=== PATIENT | female | born 1945 | race Caucasian/White ===

== ENCOUNTER 2019-07-17 09:13 | Outpatient (CLI) | payer MEDICARE, SELFPAY ==
--- NOTE | ~2019-07-17 | US_ITS ---
US breast RT limited 07/17/2019 10:14 Indication: Follow-up right breast mass Procedure: High-resolution ultrasound of the right breast Comparison: 01/10/2019 Findings: At 11:00, 5 cm from the nipple, there is a cluster of microcysts measuring 7 mm in aggregat e. There is also a 5 mm cyst at 11:00, 2 cm from the nipple. No suspicious masses to suggest malignan cy. Impression: 1: No sonographic evidence for malignancy. Routine yearly screening mammogram and regular clinical breast examination are recommended. BI-RADS CATEGORY 2 - BENIGN FINDINGS Reviewed, dictated and finalized at location A. Impression: 1: No sonographic evidence for malignancy. Routine yearly screening mammogram and regular clinical breast examination are recommended. BI-RADS CATEGORY 2 - BENIGN FINDINGS
== END 2019-07-17 09:14 ==
PROVIDERS: PCP Family Medicine; Visit Provider Family Medicine
DX: R92.8 Other abnormal and inconclusive findings on diagnostic imaging of breast (principal)
CPT/HCPCS: 76642

== ENCOUNTER → 2020-04-27 07:17 | Outpatient (CLI) | payer MEDICARE, SELFPAY ==
--- NOTE | ~2020-04-27 | MM_ITS ---
EXAMINATION: MM screening castro BI w heather HISTORY: Screening TECHNIQUE: Craniocaudal and mediolateral oblique 3-D tomosynthesis images were obtained and synthetic 2-D images were generated. CAD analysis was submitted and interpreted. COMPARISON: Comparison to multiple prior studies sequentially, with oldest reviewed study dated 09/21. BREAST PARENCHYMAL COMPOSITION: There are scattered areas of fibroglandular density. FINDINGS: Stable benign-appearing bilateral breast masses. There is no evidence of suspicious mass, c alcification, or architectural distortion to suggest malignancy in either breast. There has been no s uspicious interval change. IMPRESSION: 1. No mammographic evidence of malignancy. 2. Recommend routine screening mammography in one year. BI-RADS Category 2: Benign finding(s). Reviewed, dictated and finalized at location A. ONENT ENGINEER
== END ==
PROVIDERS: PCP Family Medicine; Visit Provider Family Medicine
DX: Z12.31 Encounter for screening mammogram for malignant neoplasm of breast (principal)
CPT/HCPCS: 77063; 77067

== ENCOUNTER → 2022-06-08 10:30 | Outpatient (CLI) | payer MEDICARE, SELFPAY ==
--- NOTE | ~2022-06-08 | MM_ITS ---
EXAMINATION: MM screening castro BI w heather HISTORY: Screening mammogram TECHNIQUE: Craniocaudal and mediolateral oblique 3-D tomosynthesis images were obtained and synthetic 2-D images were generated. CAD analysis was submitted and interpreted. COMPARISON: 04/27/2020 bilateral screening mammogram 07/17/2019 limited right breast ultrasound 01/10/2019 bilateral diagnostic mammography and Limited bilateral breast ultrasound examination 01/07/2019 bilateral screening mammogram examination BREAST PARENCHYMAL COMPOSITION: There are scattered areas of fibroglandular density. FINDINGS: There is no evidence of suspicious mass, calcification, or architectural distortion to sugg est malignancy in either breast. There has been no suspicious interval change. IMPRESSION: 1. No mammographic evidence of malignancy. 2. Recommend routine screening mammography in one year. BI-RADS Category 1: Negative Reviewed, dictated and finalized at location A. ECT MANAGEMENT INTERN
== END ==
DX: Z12.31 Encounter for screening mammogram for malignant neoplasm of breast (principal)
CPT/HCPCS: 77063; 77067

== ENCOUNTER 2024-12-04 09:36 | Emergency (ER) | payer MEDICARE, SELFPAY ==
[2024-12-04 09:43] VITALS: BP 144/100; PULSE 96; RESP 18; TEMP 36.8; O2SAT 96
--- OUTSIDE RECORDS SUMMARY | 2024-12-04 10:01 | XMS_ITS | Encounter Summary ---
Author Organization [facility] Healthcare Address [address] [place] [id number] Care Team Providers Care Rug Drying Machine Operator Name Role Phone Francisco Javier Scott DO Primary Care Provider +1- [phone] Encounter Details Date Type Department Care Team (Late st Contact Info) Description 11/29/2024 Telephone [facility] Medical Group Cardiology [address] [place] [address] Rick Vazquez MD [address] [facility] [address] [facility] [address], [address] [place] [address] Social History Tobacco Use Types Packs/Day Years Used Date Smoking Tobacco: Never Smokeless Tobacco: Never [facility] Utilities Answer Date Recorded In the past 12 months has [employer], gas, oil, or water [employer] threatened to shut off services in your home? No 11/12/2024 Social Connection and Isolat ion Panel [NHANES] Answer Date Recorded In a typical week, how many times do you talk on the phone with family, friends, or neighbors? More than three times a week 11/12/2024 How often do you get togethe r with friends or relatives? More than three times a week 11/12/2024 How often do you attend [facility] or catholic services? Never 11/12/2024 Do you belong to any clubs o r organizations such as druze groups, unions, fraternal or athletic groups, or school groups? No 11/12/2024 How often do you attend meet ings of the clubs or organizations you belong to? Never 11/12/2024 Are you , , di vorced, , never , or living with a partner? 11/12/2024 Overall Financial Resource Strain (CARDIA) Answe r Date Recorded How hard is it for you to pa y for the very basics like food, housing, medical care, and heating? Not very hard 11/12/2024 Hunger Vital Sign Answer Date Recorded Within the past 12 months, y ou worried that your food would run out before you got the money to buy more. Never true 11/13/19 25 Within the past 12 months, t he food you bought just didn't last and you didn't have money to get more. Never true 11/12/2024 PRAPARE - Transportation Answer Date Re corded In the past 12 months, has l ack of transportation kept you from medical appointments or from getting medications? No 10/29 In the past 12 months, has l ack of transportation kept you from meetings, work, or from getting things needed for daily living? No 11/12/2024 Housing Stability Vital Sign Answer Sami e Recorded In the last 12 months, was t here a time when you were not able to pay the mortgage or rent on time? No 11/12/2024 In the past 12 months, how m any times have you moved where you were living? 0 11/12/2024 At any time in the past 12 m [facility], were you homeless or living in a half-way (including now)? No 11/12/2024 Personal Safety Answer Date Recorded Have you ever been in or are you currently in a harmful physical or emotional relationship or is someone making you feel afraid or unsafe? 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 Pt verbalizes understanding. Pt advisedto call once discharged for further instructions. * Telephone Encounter - Isidra Zaragoza - 12/03/2024 4:09 PM CDT Pt calling in to let us know that she got her INR done this am around 1403-1410. She is wondering what dosage of Warfarin to take tonight. [phone] is the number to call back * Telephone Encounter - Yolande Gonsales RN - 12/02/2024 3:51 PM CDT Spoke with pt, pt states that she is not sure what dose of warfarin to take tonight. Pt did not getINR checked today. Advised pt to take 4 mg today and recheck INR tomorrow. Pt verbalizes understanding. * Telephone Encounter - Romina Weathers - 12/02/2024 3:38 PM CDT Pt calling again requesting instructions for warfarin dose. Contact: * Telephone Encounter - Isidra Zaragoza - 12/02/2024 12:29 PM CDT Pt calling for warfarin dosage [phone] * Telephone Encounter - Yolande Gonsales RN - 11/29/2024 3:30 PM CDT See AC note. * Telephone Encounter - Romina Weathers - 11/29/2024 3:02 PM CDT Pt returning call from nurse. Contact: * Telephone Encounter - Yolande Gonsales RN - 11/29/2024 2:58 PM CDT LM on requesting return call to discuss. * Telephone Encounter - Romina Weathers - 11/29/2024 2:45 PM CDT Pt requesting call to discuss Warfarin dose instructions. Contact: documented in this encounter Plan of Treatment Not on file documented as of this encounter Visit Diagnoses Not on filedocumented in this encounter Care Teams Rug Drying Machine Operator Relationship Specialty Start Date End Date Francisco Javier Scott DO PCP - General Internal Medicine 02/15/23 documented as of this encounter
--- OUTSIDE RECORDS SUMMARY | 2024-12-04 10:01 | XMS_ITS | Encounter Summary ---
Author Organization [facility] Healthcare Address [address] [place] [address] Care Team Providers Care Manager Acute Name Role Phone Francisco Javier Scott DO Primary Care Provider +1- [phone] Encounter Details Date Type Department Care Team (Late st Contact Info) Description 11/26/2024 Telephone [facility] Medical Group Cardiology [address] [place] [address] Rick Vazquez MD [address] [facility] [address] [facility] [address], [address] [place] [address] Social History Tobacco Use Types Packs/Day Years Used Date Smoking Tobacco: Never Smokeless Tobacco: Never [facility] Utilities Answer Date Recorded In the past 12 months has [employer], gas, oil, or water [employer] threatened to shut off services in your [...] week 11/12/2024 How often do you attend [facility] or orthodoxy services? Never 11/12/2024 Do you belong to any clubs o r organizations such as mandaeism groups, unions, fraternal or athletic groups, or [...] any time in the past 12 m [facility], were you homeless or living in a longterm (including now)? No 11/12/2024 Personal Safety Answer Date Recorded Have you ever been in or are you currently in a harmful physical or emotional relationship or is someone making you feel afraid or unsafe? 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 She has questions regarding the medication she should currently be taking since sh was in rehab. Advised patient to bring in medications to her appointment on Monday and Shruthi will tell her what to continue. Patient voiced understanding. * Telephone Encounter - Romina Weathers - 11/26/2024 10:42 AM CDT Pt requesting call to discuss med list. Contact: documented in this encounter Plan of Treatment Not on file documented as of this encounter Visit Diagnoses Not on filedocumented in this encounter Care Teams Manager Acute Relationship Specialty Start Date End Date Francisco Javier Scott DO PCP - General Internal Medicine 02/15/23 documented as of this encounter
--- OUTSIDE RECORDS SUMMARY | 2024-12-04 10:01 | XMS_ITS | Encounter Summary ---
Author Organization [facility] Healthcare Address [address] [place] [address] Care Team Providers Care Photocomposing Machine Operator Name Role Phone Francisco Javier Scott DO Primary Care Provider +1- [phone] Encounter Details Date Type Department Care Team (Late st Contact Info) Description 12/03/2024 Telephone [facility] Medical Group Cardiology [address] [address] Carlyle Pinedo MD [address] [facility] [address] [facility] [address] [facility] [address] [place] [address] Social History Tobacco Use Types Packs/Day Years Used Date Smoking Tobacco: Never Smokeless Tobacco: Never [facility] Utilities Answer Date Recorded In the past 12 months has [employer], gas, oil, or water [employer] threatened to shut off services in your [...] week 11/12/2024 How often do you attend chur or roman catholic services? Never 11/12/2024 Do you belong to any clubs o r organizations such as religion groups, unions, fraternal or athletic groups, or [...] any time in the past 12 m [facility], were you homeless or living in a jail (including now)? No 11/12/2024 Personal Safety Answer Date Recorded Have you ever been in or are you currently in a harmful physical or emotional relationship or is someone making you feel afraid or unsafe? 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
--- OUTSIDE RECORDS SUMMARY | 2024-12-04 10:01 | XMS_ITS | Encounter Summary ---
Author Organization [facility] Healthcare Address [address] [place] [address] Care Team Providers Care Taker Out Name Role Phone Francisco Javier Scott DO Primary Care Provider +1- [phone] Encounter Details Date Type Department Care Team (Late st Contact Info) Description 12/03/2024 Anticoagulation Visit [facility] Medical Group Cardiology at [address] [place] [address] Yolande Gonsales, RN Social History Tobacco Use Types Packs/Day Years Used Date Smoking Tobacco: Never Smokeless Tobacco: Never [facility] Utilities Answer Date Recorded In the past 12 months has [employer], gas, oil, or water company threatened to shut off services in your [...] 11/12/2024 How often do you attend chur ch or taoist services? Never 11/12/2024 Do you belong to any clubs o r organizations such as shinto groups, unions, fraternal or athletic groups, or [...] any time in the past 12 m [facility], were you homeless or living in a [facility] (including now)? No 11/12/2024 Personal Safety Answer Date Recorded Have you ever been in or are you currently in a harmful physical or emotional relationship or is someone making you feel afraid or unsafe? 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
--- OUTSIDE RECORDS SUMMARY | 2024-12-04 10:01 | XMS_ITS | Encounter Summary ---
Author Organization [facility] Healthcare Address [address] [place] [address] Care Team Providers Care String Laster Name Role Phone Francisco Javier Scott DO Primary Care Provider +1- [phone] Encounter Details Date Type Department Care Team (Late st Contact Info) Description 12/04/2024 Anticoagulation Visit [facility] Medical Group Cardiology at [address] [place] [address] Yolande Gonsales, RN Social History Tobacco Use Types Packs/Day Years Used Date Smoking Tobacco: Never Smokeless Tobacco: Never [facility] Utilities Answer Date Recorded In the past 12 months has [employer] gas, oil, or water company threatened to [...] often do you attend chur ch or pentecostal services? Never 11/12/2024 Do you belong to any clubs o r organizations such as baptism groups, unions, fraternal or athletic groups, or [...] any time in the past 12 m [facility], were you homeless or living in a [place] [facility] (including now)? No 11/12/2024 Personal Safety Answer Date Recorded Have you ever been in or are you currently in a harmful physical or emotional relationship or is someone making you feel afraid or unsafe? 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
--- OUTSIDE RECORDS SUMMARY | 2024-12-04 10:01 | XMS_ITS | Clinical Summary ---
Author Organization [facility] – [place] [address] Address [address] [place] [address] Care Team Providers Care Violin Teacher Name Role Phone Francisco Javier Scott DO Primary Care Provider [phone] Allergies Active Allergy Reactions Criticality Noted Date Comments Penicillins Itching Low 11/11/2021 Medications aspirin (ASPIRIN LOW DOSE) 81 mg tablet take 1 tablet by oral route every day 0 0 5 Active cholecalciferol 25 mcg (1,000 unit) tablet Take 1 tablet (1,000 Units total) by mouth daily Active metoprolol XL (TOPROL-XL) 50 mg extended release tablet TAKE 1 TABLET BY MOUTH EVERY DAY 90 tablet 3 4 Active lisinopriL (PRINIVIL,ZESTRIL ) 10 mg tablet Take 1 tablet (10 mg total) by mouth daily 90 tablet 3 4 Active rosuvastatin (CRESTOR) 20 mg tablet Take 1 tablet (20 mg total) by mouth daily 90 tablet 3 4 Active warfarin (COUMADIN) 4 mg tabletIndications :atrial fibrillation Take 1 tablet (4 mg total) by mouth daily 30 tablet 5 12/23/19 25 Active Xarelto 20 mg tablet TAKE 1 TABLET BY MOUTH EVERY DAY 30 tablet 6 5 07/17/20 25 Discontinu ed(Stop Taking at Discharge) warfarin (COUMADIN) 5 mg tabletIndications :atrial fibrillation Take 1 tablet (5 mg total) by mouth daily 30 tablet 11/23/19 Discontinu ed(Reorder ) enoxaparin (LOVENOX) 80 mg/0.8 mL syringeIndication s:VTE Prophylaxis,bridg ing with warfarin Inject 0.8 mL (80 mg total) under the skin every 12 (twelve) hours for 4 doses 3.2 mL 11/16/19 Discontinu ed(Alterna te therapy) Active Problems Problem Noted Date Diagnosed Date Anticoagulated on Coumadin 11/18/2024 Assessment & Plan (11/26/2024 3:31 PM CDT): Today's lab is reviewed including an INR 4.48. The patient has not bleeding or bruising. She is scheduled for discharge to the community today. I have advised her, her discharging nurse, and her daughters Terrie and Aye of the need to stop taking warfarin until she speaks with either her PCP or her lace machine operator. I advised that she see 1 or the other in 2 days to have an INR rechecked. I called the office of Dr. Scott to be informed by his general ledger bookkeeper the patient has never been seen there. I then called lace machine operator Dr. Vazquez and spoke with his nurse. She told me that the patient had not been there in this calendar year and when last seen was taking apixaban. I have explained all this to her satisfaction and she endorsed understanding. She understands to be expecting a call from the patient on Monday of this week. Assessment & Plan (11/22/2024 12:42 PM CDT): Coumadin resumed at 4mg with recheck INR 11/25. Continue fu with primary/cardiology for management. Assessment & Plan (11/21/2024 1:18 PM CDT): FU INR pending for today. Coumadin remains on hold at this time. Cerebrovascular accident (CVA) 11/15/2024 Assessment & Plan (11/15/2024 5:49 PM CDT): Subacute, stable. Continue aspirin 81 mg daily, rosuvastatin 20 mg daily, warfarin as scripted, and consult physical and occupational therapy. Arachnoid cyst 11/15/2024 Assessment & Plan (11/15/2024 5:48 PM CDT): Radiology advises follow up MRI in 3 months Renal infarct 11/11/2024 Assessment & Plan (11/15/2024 5:48 PM CDT): Age indeterminate Stage 3a chronic kidney disease 11/11/2024 Assessment & Plan (11/22/2024 12:43 PM CDT): Given 1L during stay, Lisinopril dc. Improvement in labs & K. Continue routine monitoring. Assessment & Plan (11/21/2024 1:18 PM CDT): Patient started on 1L IVF via hypoderm. FU labs pending today. Assessment & Plan (11/15/2024 5:48 PM CDT): Follow up labs ordered Type 2 diabetes mellitus wit hout complication, without long-term current use of insulin 10/29/2024 Assessment & Plan (11/18/2024 1:09 PM CDT): BS 111-250. Currently not on DM diet. A1c 6. Well controlled. Assessment & Plan (11/15/2024 5:47 PM CDT): Monitor point of care glucose Essential hypertension 11/05/2020 Assessment & Plan (11/22/2024 12:43 PM CDT): BP stable without Lisinopril. Held dt KASIA/elevated K. Will dc & monitor outpt per PCP. Assessment & Plan (11/21/2024 1:17 PM CDT): BP stable with Lisinopril on hold. Continue to montior. FU labs pending. Assessment & Plan (11/18/2024 1:06 PM CDT): Lisinopril placed on hold with elevated K. BP stable but monitor without. Have also ordered Low K diet. Repeat labs in am. Assessment & Plan (11/15/2024 5:47 PM CDT): Chronic, stable. Continue lisinopril 10 mg daily and metoprolol succinate 50 mg daily. Longstanding persistent atrial fibrillation 11/2020 Assessment & Plan (11/18/2024 1:07 PM CDT): INR 5.39. Coumadin placed on hold. ASA held also. Will monitor with daily labs until stabilized & restart dose at 3mg. Assessment & Plan (11/15/2024 5:47 PM CDT): Continue warfarin 5 mg daily, INR ordered next lab draw Mixed hyperlipidemia 11/05/2020 Assessment & Plan (11/15/2024 5:47 PM CDT): Continue rosuvastatin 20 mg daily Resolved Problems Problem Noted Date Diagnosed Date Resolved Date Hyperkalemia 11/18/2024 11/22/2024 Pneumonia due to organism 11/11/2024 Assessment & Plan (11/15/2024 5:49 PM CDT): Subacute and treated. Pneumonia of right lung due to infectious organism 11/10/2024 11/18/2024 Somnolence 11/10/2024 11/18/2024 Abdominal pain 11/09/2024 11/15/2024 Encounters Date Type Department Care Team Description 12/04/2024 Anticoagulation Visit [facility] Medical Group Cardiology at [address] [place] [phone] Yolande Gonsales RN 12/03/2024 Telephone [facility] Medical [facility] Cardiology [address] [place] [address] [place] [phone] Carlyle Pinedo MD 12/03/2024 Anticoagulation Visit [facility] Cardiology at [address] [place] [address] Yolande Gonsales RN 11/29/2024 1:30 PM CDT Office Visit [facility] Cardiology [address] [place] [address] [place] [phone] Shruthi Poe NP History of recent stroke (Primary Dx); Encounter for anticoagulation discussion and counseling; Longstanding persistent atrial fibrillation (HCC); 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]; Hospital discharge follow-up 11/29/[address] [facility] Cardiology at [address] [place] [address] Yolande Gonsales RN 11/29/2024 Telephone [facility] Cardiology [address] [place] [address] [place] [phone] Rick Vazquez MD 11/29/2024 Telephone [facility] Medical [facility] Post Acute Care [address] [facility] [address] [place] [phone] Terrie Schultz MA 11/28/2024 Telephone [facility] Cardiology [address] [place] [address] [place] [phone] Rick Vazquez MD 11/27/2024 Anticoagulation Visit [facility] Cardiology [address] [place] [address] [place] [phone] Dalia Walker RN 11/27/2024 Telephone [facility] Home Care Services [address] [place] [address] [place] [phone] Shauna Oconnor, RN 11/26/2024 Telephone [facility] Home Care Services [address] [place] [address] [place] [phone] Shauna Oconnor, RN 11/26/2024 Telephone [facility] Home Care Services [address] [place] [address] [place] [phone] Shauna Oconnor, RN 11/26/2024 Telephone [facility] Home Care Services [address] [place] [address] [place] [phone] Shauna Oconnor, RN 11/26/2024 Telephone [facility] Medical [facility] Cardiology [address] [place] [phone] Rick Vazquez MD 11/25/2024 NH/SNF Visit [facility] Medical [facility] Post Acute Care [address] [phone] Tad Talbot MD Anticoagulated on Coumadin (Primary Dx); Longstanding persistent atrial fibrillation (HCC) 11/25/2024 Telephone [facility] Home Care Services [address] [facility] [address] [place] [phone] Shauna Oconnor, JOHANA 11/25/2024 Telephone [facility] Home Care Services [address] [facility] [address] [place] [phone] Shauna Oconnor RN 11/25/2024 Telephone [facility] Home Care Services [address] [place] [address] [place] [phone] Shauna Oconnor RN 11/25/2024 Anticoagulation Visit [facility] Cardiology [address] [place] [phone] Dalia Walker RN 11/25/2024 Telephone [facility] Cardiology [address] [place] [address] [place] [phone] Rick Vazquez MD 11/22/2024 NH/SNF Visit [facility] Medical [facility] Post Acute Care [address] [phone] Kailyn Martines NP Longstanding persistent atrial fibrillation (HCC) (Primary Dx); Anticoagulated on Coumadin; Essential hypertension; Stage 3a chronic kidney disease (HCC); Hyperkalemia 11/21/2024 NH/SNF Visit [facility] Medical [facility] Post Acute Care [address] [phone] Kailyn Martines NP Stage 3a chronic kidney disease (HCC) (Primary Dx); Essential hypertension; Supratherapeutic INR 11/19/2024 Results Follow-Up [facility] Post Acute Care [address] [phone] Kailyn Martines NP CBC without differential, Comprehensive metabolic panel, eGFR, Additional followed-up results: 11 11/18/2024 NH/SNF Visit [facility] Post Acute Care [address] [phone] Kailyn Martines NP Longstanding persistent atrial fibrillation (HCC) (Primary Dx); Supratherapeutic INR; Essential hypertension; Hyperkalemia; Stage 3a chronic kidney disease (HCC); Type 2 diabetes mellitus without complication, without long-term current use of insulin (HCC) 11/18/2024 Orders Only [facility] [place] Hospitalists [address] [place] [phone] Tad Talbot MD 11/15/2024 NH/SNF Visit [facility] Post [facility] Care [address] [phone] Tad Talbot MD Cerebrovascular accident (CVA), unspecified mechanism (HCC) (Primary Dx); Essential hypertension; Longstanding persistent atrial fibrillation (HCC); Mixed hyperlipidemia; Type 2 diabetes mellitus without complication, without long-term current use of insulin (HCC); Renal infarct; Stage 3a chronic kidney disease (HCC); Pneumonia due to infectious organism, unspecified laterality, unspecified part of lung; Arachnoid cyst 11/09/2024 3:33 PM CDT - 11/14/2024 6:36 PM CDT Hospital Encounter [place] [address] [address] [place] [phone] Simeon Morrow MD [place], MD Quoc Ramos Pathanjali, MD 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 (HCC) (Primary Dx); Abdominal pain; Pyelonephritis; Pneumonia of right lung due to infectious organism, unspecified part of lung; 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]; Stage 3a chronic kidney disease (HCC) [N18.31]; Paroxysmal atrial fibrillation (HCC) Discharge Disposition: Discharge to SNF from Last 3 Months Medical History Medical History Date Comments Hx Other Medical Afib Family History Medical History Relation Name Comments Car Accident Father ACCIDENT; Sudden Mother Sudden ; Relation Name Status Comments Father Mother (Age 96) Social History Tobacco Use Types Packs/Day Years Used Date Smoking Tobacco: Never Smokeless Tobacco: Never Tobacco Cessation:Counseling Given: Not Answered [facility] Utilities Answer Date Recorded In the past 12 months has th e [employer], gas, oil, or water [employer] threatened to shut off services in your [...] often do you attend chur ch or samaritan services? Never 11/12/2024 Do you belong to [...] any time in the past 12 [facility], were you homeless or living in a alf (including now)? No 11/12/2024 Personal Safety Answer Date Recorded Have you ever been in or are you currently in a harmful physical or emotional relationship or is someone making you feel afraid or unsafe? 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 Gender Identity Not on file Sexual Orientation Not on file Obstetrics History Last Filed Vital Signs Vital Sign Reading Time Taken Comments Blood Pressure 124/60 11/29/2024 1:37 PM CDT Pulse 85 11/29/2024 1:37 PM CDT Temperature 36.7 C (98.1 F) 11/14/2024 3:46 PM CDT Respiratory Rate 16 11/15/2024 9:20 AM CDT Oxygen Saturation 95% 11/29/2024 1:37 PM CDT Inhaled Oxygen Concentration - - Weight 77.6 kg (171 lb) 11/29/2024 1:37 PM CDT Height 154.9 cm (5' 1) 11/29/2024 1:37 PM CDT Body Mass Index 32.31 11/29/2024 1:37 PM CDT Plan of Treatment Health Maintenance Due Date Last Done Comments Albumin Creatinine Ratio, Urine 1945 Depression Screening 1945 Hepatitis C Screening 1945 Osteoporosis Screening-Bone Density Scan 1945 Dilated Eye Exam 1945 Foot Exam 1945 DTaP/Tdap/Td Vaccine (1 - Tdap) 1956 Hepatitis B Screening 11/08/1963 Pneumococcal vaccine 65+ (1 of 2 - PCV) 1964 Zoster Vaccine (1 of 2) 11/08/1995 Well Visit 65+ 2010 Influenza Vaccine (#1) 2024 Hemoglobin A1C 05/13/2025 11/10/2024 Lipid Panel 07/18/2025 07/18/2024, 01/29, 11/11/2021, Additional history exists Fall Risk Assessment 11/14/2025 11/14/2024 eGFR 11/25/2025 11/25/2024, 10/30, 11/19/2024, Additional history exists Procedures Procedure Name Priority Date/Time Associated Diagnosis Comments PROTIME-INR Routine 12/03/2024 11:31 AM CDT Longstanding persistent atrial fibrillation (HCC) PROTIME-INR Routine 11/29/2024 8:53 AM CDT Longstanding persistent atrial fibrillation (HCC) PROTIME-INR Routine 11/27/2024 10:07 AM CDT Longstanding persistent atrial fibrillation (HCC) EGFR Routine 11/25/2024 6:46 AM CDT BASIC METABOLIC PANEL Routine 11/25/2024 6:46 AM CDT PROTIME-INR Routine 11/25/2024 6:46 AM CDT CBC WITHOUT DIFFERENTIAL Routine 11/25/2024 6:46 AM CDT EGFR Routine 11/21/2024 2:32 PM CDT BASIC METABOLIC PANEL Routine 11/21/2024 2:32 PM CDT PROTIME-INR Routine 11/21/2024 2:32 PM CDT EGFR Routine 11/19/2024 5:38 AM CDT BASIC METABOLIC PANEL Routine 11/19/2024 5:38 AM CDT PROTIME-INR Routine 11/19/2024 5:38 AM CDT PROTIME-INR Routine 11/18/2024 3:50 AM CDT EGFR Routine 11/18/2024 3:50 AM CDT COMPREHENSIVE METABOLIC PANEL Routine 11/18/2024 3:50 AM CDT CBC WITHOUT DIFFERENTIAL Routine 11/18/2024 3:50 AM CDT POCT GLUCOSE DEVICE Routine 11/14/2024 1 2:34 PM CDT POCT GLUCOSE DEVICE Routine 11/14/2024 7 :58 AM CDT EGFR Timed 11/14/2024 4:44 AM CDT CREATININE Timed 11/14/2024 4:44 AM CDT CBC WITHOUT DIFFERENTIAL Timed 11/14/2024 4:44 AM CDT PROTIME-INR Routine 11/14/2024 4:44 AM CDT POCT GLUCOSE DEVICE Routine 11/13/2024 9 :42 PM CDT POCT GLUCOSE DEVICE Routine 11/13/2024 5 :14 PM CDT POCT GLUCOSE DEVICE Routine 11/13/2024 1 :40 PM CDT POCT GLUCOSE DEVICE Routine 11/13/2024 7 :54 AM CDT EGFR Routine 11/13/2024 4:44 AM CDT DIFFERENTIAL AUTO Routine 11/13/2024 4:4 4 AM CDT CBC WITH AUTO DIFFERENTIAL Routine 11/13/2024 4:44 AM CDT BASIC METABOLIC PANEL Routine 11/13/2024 4:44 AM CDT PROTIME-INR Routine 11/13/2024 4:44 AM CDT INCENTIVE SPIROMETRY RT Routine 11/13/2024 4:00 AM CDT INCENTIVE SPIROMETRY RT Routine 11/13/2024 12:00 AM CDT POCT GLUCOSE DEVICE Routine 11/12/2024 8 :57 PM CDT INCENTIVE SPIROMETRY RT Routine 11/12/2024 8:00 PM CDT POCT GLUCOSE DEVICE Routine 11/12/2024 5 :06 PM CDT POCT GLUCOSE DEVICE Routine 11/12/2024 1 1:40 AM CDT INCENTIVE SPIROMETRY RT Routine 11/12/2024 9:41 AM CDT INCENTIVE SPIROMETRY RT Routine 11/12/2024 9:41 AM CDT INCENTIVE SPIROMETRY RT Routine 11/12/2024 9:41 AM CDT EGFR Routine 11/12/2024 9:15 AM CDT DIFFERENTIAL AUTO Routine 11/12/2024 9:1 5 AM CDT PROTIME-INR Routine 11/12/2024 9:15 AM CDT IRON PROFILE W/ IBC Routine 11/12/2024 9 :15 AM CDT FOLATE Routine 11/12/2024 9:15 AM CDT VITAMIN B12 Routine 11/12/2024 9:15 AM CDT CREATINE KINASE (CK), TOTAL Routine 11/12/2024 9:15 AM CDT LACTATE DEHYDROGENASE Routine 11/12/2024 9:15 AM CDT CBC WITH AUTO DIFFERENTIAL Routine 11/12/2024 9:15 AM CDT COMPREHENSIVE METABOLIC PANEL Routine 11/12/2024 9:15 AM CDT POCT GLUCOSE DEVICE Routine 11/12/2024 8 :11 AM CDT POCT GLUCOSE DEVICE Routine 11/11/2024 9 :29 PM CDT PROTIME-INR Routine 11/11/2024 7:23 PM CDT POCT GLUCOSE DEVICE Routine 11/11/2024 6 :21 PM CDT POCT GLUCOSE DEVICE Routine 11/11/2024 1 :07 PM CDT MRI BRAIN W CONTRAST IP Routine 11/11/2024 12:54 PM CDT EGFR Routine 11/11/2024 3:51 AM CDT DIFFERENTIAL AUTO Routine 11/11/2024 3:5 1 AM CDT COMPREHENSIVE METABOLIC PANEL Routine 11/11/2024 3:51 AM CDT CBC WITH AUTO DIFFERENTIAL Routine 11/11/2024 3:51 AM CDT POCT GLUCOSE DEVICE Routine 11/10/2024 8 :05 PM CDT POCT GLUCOSE DEVICE Routine 11/10/2024 5 :37 PM CDT MRI BRAIN WO CONTRAST IP Routine 11/10/2024 2:51 PM CDT CTA HEAD NECK W WO CONTRAST IP Routine 11/10/2024 1:[address] STROKE PROTOCOL WO CONTRAST Critical/Life-T hreatening 11/10/2024 12:29 PM CDT POCT GLUCOSE DEVICE Routine 11/10/2024 1 1:57 AM CDT EGFR Routine 11/10/2024 4:03 AM CDT DIFFERENTIAL AUTO Routine 11/10/2024 4:0 3 AM CDT THYROID FUNCTION CASCADE Routine 11/10/2024 4:03 AM CDT HEMOGLOBIN A1C Routine 11/10/2024 4:03 AM CDT CBC WITH AUTO DIFFERENTIAL Routine 11/10/2024 4:03 AM CDT COMPREHENSIVE METABOLIC PANEL Routine 11/10/2024 4:[address] CHEST WO CONTRAST ED Urgent/IP Urgent 11/09/2024 8:19 PM CDT SEPSIS LACTATE WITH REFLEX STAT 11/09/2024 7:49 PM CDT BLOOD CULTURE STAT 11/09/2024 7:49 PM CDT BLOOD CULTURE STAT 11/09/2024 7:49 PM CDT POTASSIUM LEVEL STAT 11/09/2024 4:[address] ABDOMEN PELVIS W CONTRAST ED 11/09/2024 4:23 PM CDT ECG 12-LEAD Routine 11/09/2024 3:49 PM CDT URINALYSIS, MICROSCOPIC ONLY STAT 11/09/2024 2:37 PM CDT URINALYSIS AND REFLEX TO MICROSCOPIC AND CULTURE STAT 11/09/2024 2:37 PM CDT EGFR STAT 11/09/2024 2:03 PM CDT DIFFERENTIAL AUTO STAT 11/09/2024 2:0 3 PM CDT LIPASE STAT 11/09/2024 2:03 PM CDT COMPREHENSIVE METABOLIC PANEL STAT 11/09/2024 2:03 PM CDT CBC WITH AUTO DIFFERENTIAL STAT 11/09/2024 2:03 PM CDT POCT LIPID PANEL Routine 02/08/2023 10:0 9 AM CDT Lipid screening from Last 3 Months or Most Recently Relevant to Health Maintenance Results * (ABNORMAL) Protime-INR (12/03/2024 11:31 AM CDT) INR 8.2(H) [employer] Comment: Verified by repeat analysis. Reference Range 0.9-1.1 Moderate-intensity Warfarin Therapy 2.0-3.0 Higher-intensity Warfarin Therapy 3.0-4.0 PT 75.8(H) 9.0 - 11.5 sec [employer] Comment: Verified by repeat analysis. For additional information, please refer to http://[email or web address]/faq/NUV963 (This link is being provided for informational/ educational purposes only.) Blood 12/03/2024 11:3 1 AM CDT 12/03/2024 11:31 AM CDT us Rick Vazquez MD LAB BLOOD ORDERABLES Final Resul t [facility] [address] [place] [address] * (ABNORMAL) Protime-INR (11/29/2024 8:53 AM CDT) INR 3.9(H) [employer] Comment: Reference Range 0.9-1.1 Moderate-intensity Warfarin Therapy 2.0-3.0 Higher-intensity Warfarin Therapy 3.0-4.0 PT 38.3(H) 9.0 - 11.5 sec [employer] Comment: For additional information, please refer to http://[email or web address]/faq/YDG942 (This link is being provided for informational/ educational purposes only.) Blood 11/29/2024 8:53 AM CDT 11/29/2024 8:53 AM CDT Rick Vazquez MD LAB BLOOD ORDERABLES Final Resul t Performing Organization Address [facility] de Phone Number [facility] [address] [place] [address] * (ABNORMAL) Protime-INR (11/27/2024 10:07 AM CDT) INR 4.3(H) [employer] Comment: Reference Range 0.9-1.1 Moderate-intensity Warfarin Therapy 2.0-3.0 Higher-intensity Warfarin Therapy 3.0-4.0 PT 41.9(H) 9.0 - 11.5 sec [employer] [facility] Comment: For additional information, please refer to http://education.Konotor/faq/AAI483 (This link is being provided for informational/ educational purposes only.) Blood 11/27/2024 10:0 7 AM CDT 11/27/2024 10:08 AM CDT Narrative [facility] - 11/27/2024 3:10 PM CDT FASTING:NO FASTING: NO Rick Vazquez MD LAB BLOOD ORDERABLES Final Resul t Performing Organization Address [facility] de Phone Number [facility] [address] [place] [address] * (ABNORMAL) eGFR (11/25/2024 6:46 AM CDT) eGFR 49(L) >=60 mL/min/1. 73 m2 [facility] Comment: Interpretive Data Reference Interval Normal >/= 90 mL/min/1.73m2 Mildly decreased* 60 - 89 mL/min/1.73m2 Mildly to moderately decreased 45 - 59 mL/min/1.73m2 Moderately to severely decreased 30 - 44 mL/min/1.73m2 Severely decreased 15 - 29 mL/min/1.73m2 Kidney Failure < 15 mL/min/1.73m2 *Relative to young adult level Estimated glomerular filtration rate is determined by the 2020 CKD-EPI equation recommended by the National Kidney Foundation (A Unifying Approach to GFR Estimation: Recommendations of the NKF-ASK Task Force on Reassessing the Inclusion of Race in Diagnosing Kidney Disease, JASN 2020). The CKD-EPI equation should not be used for patients with unstable renal function and has not been validated in children and those over 70. Current interpretive data was last reviewed 2021. [address] [address] Blood 11/25/2024 6:46 AM CDT 11/25/2024 7:43 AM CDT Kailyn Martines NP LAB BLOOD ORDERABLES Final Result Performing Organization Address [facility] Co de Phone Number [address] [place] [address] * (ABNORMAL) Protime-INR (11/25/2024 6:46 AM CDT) PT 42.90(H) 12.00 - 14.60 sec [facility] Comment: Ref Range High [address] [address] INR 4.48(H) 0.90 - 1.20 [facility] Comment: Ref Range High Interpretive data Oral anticoagulant therapeutic ranges: Venous thromboembolism prophylaxis or treatment: 2.0-3.0 CARDIOLOGY Standard range: 2.0-3.0 High-intensity range: 2.5-3.5 Refer to indication-specific guidelines for appropriate target ranges for prosthetic heart valve replacement. Current interpretive data was last revised on 2019. [address] [address] Blood 11/25/2024 6:46 AM CDT 11/25/2024 7:43 AM CDT Kailyn Martines NP LAB BLOOD ORDERABLES Final Result Performing Organization Address City/[facility]/ZIP Co de Phone Number [address] Department of [employer] [place] [address] * (ABNORMAL) CBC without differential (11/25/2024 6:46 AM CDT) [facility] WBC 7.54 3.80 - 9.90 K/cumm [facility] Comment:[address], [address] Hgb 11.2(L) 11.9 - 15.5 g/dL CERISAI Comment:[address], [address] Hct 38.1 35.6 - 45.5 % [facility]RIL Comment:[address], [address] Plt 403(H) 150 - 400 K/cumm [facility]ERISAI MH Comment:[address], [address] MPV 9.8 9.1 - 12.3 fL [facility] Comment:[address], [address] RBC 4.57 3.90 - 5.20 M/cumm [facility]ERISAI MH Comment:[address], [address] MCV 83.4 81.3 - 96.4 fL [facility]ER[facility]I Comment:[address], [address] MCH 24.5(L) 27.1 - 33.3 pg [facility]ERISAI Comment:[address], [address] MCHC 29.4(L) 32.3 - 35.7 g/dL [facility] Comment:[address], [address] RDW CV 22.0(H) 11.1 - 14.9 % [facility] Comment:[address], [address] RDW SD 62.5(H) 35.7 - 48.1 fL [facility] Comment:[address], [address] NRBC abs 0.00 0.00 - 0.01 K/cumm AVRIL Comment:[address], [address] Blood 11/25/2024 6:46 AM CDT 11/25/2024 7:43 AM CDT us Kailyn M. Martines INSTRUCTIONAL COORDINATOR LAB BLOOD ORDERABLES Final Result [facility] [address] Department [place] [address] * (ABNORMAL) Basic metabolic panel (11/25/2024 6:46 AM CDT) Sodium 142 135 - 145 mmol/L [facility] Comment:[address] [address] Potassium, pl 4.2 3.3 - 4.9 mmol/L [facility] Comment:[address] [address] Chloride 105 97 - 110 mmol/L [facility] Comment:[address] [address] CO2 28 22 - 32 mmol/L [facility] Comment:[address] [address] Anion gap 9 2 - 15 mmol/L [facility] Comment:[address] [address] BUN 22 6 - 25 mg/dL [facility] Comment:[address] [address] Creatinine 1.14(H) 0.60 - 1.10 mg/dL [facility] Comment:[address] [address] Glucose 92 70 - 199 mg/dL [facility] Comment: Interpretive Data Fasting glucose >/= 126 mg/dl is diagnostic for diabetes. Fasting is defined as no caloric intake for at least 8 hours. Fasting glucose between 100 mg/dl to 125 mg/dl is diagnostic of prediabetes. In a patient with classic symptoms of hyperglycemia or hyperglycemic crisis, a random glucose >/= 200 mg/dl is diagnostic for diabetes. In the absence of unequivocal hyperglycemia, results should be confirmed by repeat testing. The classification and Diagnosis of Diabetes Diabetes Care 202; 46: S19-S40. Current interpretive data was last revised 2022. [facility], [address] [place] [address]., [address] Calcium 9.1 8.5 - 10.3 mg/dL [facility] Comment:[address] [address] Blood 11/25/2024 6:46 AM CDT 11/25/2024 7:43 AM CDT Kailyn Martines INSTRUCTIONAL COORDINATOR LAB BLOOD ORDERABLES Final Result Performing Organization Address [facility] Co de Phone Number JOHN[address] [address] * (ABNORMAL) eGFR (11/21/2024 2:32 PM CDT) eGFR 44(L) >=60 mL/min/1. 73 m2 [facility] Comment: Interpretive Data Reference Interval Normal >/= 90 mL/min/1.73m2 Mildly decreased* 60 - 89 mL/min/1.73m2 Mildly to moderately decreased 45 - 59 mL/min/1.73m2 Moderately to severely decreased 30 - 44 mL/min/1.73m2 Severely decreased 15 - 29 mL/min/1.73m2 Kidney Failure < 15 mL/min/1.73m2 *Relative to young adult level Estimated glomerular filtration rate is determined by the 2020 CKD-EPI equation recommended by the National Kidney Foundation (A Unifying Approach to GFR Estimation: Recommendations of the NKF-ASK Task Force on Reassessing the Inclusion of Race in Diagnosing Kidney Disease, JASN 2020). The CKD-EPI equation should not be used for patients with unstable renal function and has not been validated in children and those over 70. Current interpretive data was last reviewed 2021. [address] [address] Blood 11/21/2024 2:32 PM CDT 11/21/2024 2:41 PM CDT Kailyn Martines NP LAB BLOOD ORDERABLES Final Result Performing Organization Address [facility]/ZIP Co de Phone Number [address] [place] [address] * (ABNORMAL) Protime-INR (11/21/2024 2:32 PM CDT) PT 25.30(H) 12.00 - 14.60 sec [facility] Comment: Ref Range High [facility], [address] [place] [address]., [address] INR 2.27(H) 0.90 - 1.20 [facility] Comment: Ref Range High Interpretive data Oral anticoagulant therapeutic ranges: Venous thromboembolism prophylaxis or treatment: 2.0-3.0 CARDIOLOGY Standard range: 2.0-3.0 High-intensity range: 2.5-3.5 Refer to indication-specific guidelines for appropriate target ranges for prosthetic heart valve replacement. Current interpretive data was last revised on 2019. [facility], [address] [place] [address]., [address] Blood 11/21/2024 2:32 PM CDT 11/21/2024 2:41 PM CDT Kailyn Martines INSTRUCTIONAL COORDINATOR LAB BLOOD ORDERABLES Final Result [facility] [address] Department [place] [address] * (ABNORMAL) Basic metabolic panel (11/21/2024 2:32 PM CDT) Pathologist [facility] Sodium 141 135 - 145 mmol/L [facility] Comment:[address] [address] Potassium, pl 4.8 3.3 - 4.9 mmol/L [facility] Comment:[address] [address] Chloride 104 97 - 110 mmol/L [facility] Comment:[address] [address] CO2 27 22 - 32 mmol/L [facility] Comment:[address] [address] Anion gap 10 2 - 15 mmol/L [facility] Comment:[address] [address] BUN 28(H) 6 - 25 mg/dL [facility] Comment:[address] [address] Creatinine 1.24(H) 0.60 - 1.10 mg/dL [facility] VALENTINO Comment:[address] [address] Glucose 98 70 - 199 mg/dL [facility] Comment: Interpretive Data Fasting glucose >/= 126 mg/dl is diagnostic for diabetes. Fasting is defined as no caloric intake for at least 8 hours. Fasting glucose between 100 mg/dl to 125 mg/dl is diagnostic of prediabetes. In a patient with classic symptoms of hyperglycemia or hyperglycemic crisis, a random glucose >/= 200 mg/dl is diagnostic for diabetes. In the absence of unequivocal hyperglycemia, results should be confirmed by repeat testing. The classification and Diagnosis of Diabetes Diabetes Care 202; 46: S19-S40. Current interpretive data was last revised 2022. [facility], [address] [place] [address]., [address] Calcium 8.7 8.5 - 10.3 mg/dL [facility] Comment:[address] [address] Blood 11/21/2024 2:32 PM CDT 11/21/2024 2:41 PM CDT us Kailyn Martines INSTRUCTIONAL COORDINATOR LAB BLOOD ORDERABLES Final Result [facility] [address] Department [place] [address] * (ABNORMAL) eGFR (11/19/2024 5:38 AM CDT) eGFR 41(L) >=60 mL/min/1. 73 m2 [facility] Comment: Interpretive Data Reference Interval Normal >/= 90 mL/min/1.73m2 Mildly decreased* 60 - 89 mL/min/1.73m2 Mildly to moderately decreased 45 - 59 mL/min/1.73m2 Moderately to severely decreased 30 - 44 mL/min/1.73m2 Severely decreased 15 - 29 mL/min/1.73m2 Kidney Failure < 15 mL/min/1.73m2 *Relative to young adult level Estimated glomerular filtration rate is determined by the 2020 CKD-EPI equation recommended by the National Kidney Foundation (A Unifying Approach to GFR Estimation: Recommendations of the NKF-ASK Task Force on Reassessing the Inclusion of Race in Diagnosing Kidney Disease, JASN 2020). The CKD-EPI equation should not be used for patients with unstable renal function and has not been validated in children and those over 70. Current interpretive data was last reviewed 2021. [address] [address] Blood 11/19/2024 5:38 AM CDT 11/19/2024 6:19 AM CDT Kailyn Martines NP LAB BLOOD ORDERABLES Final Result Performing Organization Address [facility] Co de Phone Number JOHN[address] [employer] [place] [address] * (ABNORMAL) Protime-INR (11/19/2024 5:38 AM CDT) PT 45.40(H) 12.00 - 14.60 sec [facility] Comment: Ref Range High [address] [address] INR 4.82(H) 0.90 - 1.20 [facility] Comment: Ref Range High Interpretive data Oral anticoagulant therapeutic ranges: Venous thromboembolism prophylaxis or treatment: 2.0-3.0 CARDIOLOGY Standard range: 2.0-3.0 High-intensity range: 2.5-3.5 Refer to indication-specific guidelines for appropriate target ranges for prosthetic heart valve replacement. Current interpretive data was last revised on 2019. [address] [address] Blood 11/19/2024 5:38 AM CDT 11/19/2024 6:19 AM CDT Kailyn Martines NP LAB BLOOD ORDERABLES Final Result Performing Organization Address City/[facility]/ZIP Co de Phone Number [address] Department [employer] [place] [address] * (ABNORMAL) Basic metabolic panel (11/19/2024 5:38 AM CDT) Sodium 139 135 - 145 mmol/L [facility] Comment:[address] [address] Potassium, pl 5.2(H) 3.3 - 4.9 mmol/L [facility] Comment:[address] [address] Chloride 100 97 - 110 mmol/L [facility] Comment:[address] [address] CO2 29 22 - 32 mmol/L [facility] Comment:[address] [address] Anion gap 10 2 - 15 mmol/L [facility] Comment:[address] [address] BUN 25 6 - 25 mg/dL [facility] Comment:[address] [address] Creatinine 1.33(H) 0.60 - 1.10 mg/dL [facility] Comment:[address] [address] Glucose 118 70 - 199 mg/dL [facility] Comment: Interpretive Data Fasting glucose >/= 126 mg/dl is diagnostic for diabetes. Fasting is defined as no caloric intake for at least 8 hours. Fasting glucose between 100 mg/dl to 125 mg/dl is diagnostic of prediabetes. In a patient with classic symptoms of hyperglycemia or hyperglycemic crisis, a random glucose >/= 200 mg/dl is diagnostic for diabetes. In the absence of unequivocal hyperglycemia, results should be confirmed by repeat testing. The classification and Diagnosis of Diabetes Diabetes Care 202; 46: S19-S40. Current interpretive data was last revised 2022. [facility], [address] [place] [address]., [address] Calcium 8.9 8.5 - 10.3 mg/dL [facility] Comment:[address] [address] Blood 11/19/2024 5:38 AM CDT 11/19/2024 6:19 AM CDT Kailyn Martines NP LAB BLOOD ORDERABLES Final Result [facility] [address] Department [place] [address] * (ABNORMAL) eGFR (11/18/2024 3:50 AM CDT) eGFR 51(L) >=60 mL/min/1. 73 m2 [facility] VALENTINO Comment: Interpretive Data Reference Interval Normal >/= 90 mL/min/1.73m2 Mildly decreased* 60 - 89 mL/min/1.73m2 Mildly to moderately decreased 45 - 59 mL/min/1.73m2 Moderately to severely decreased 30 - 44 mL/min/1.73m2 Severely decreased 15 - 29 mL/min/1.73m2 Kidney Failure < 15 mL/min/1.73m2 *Relative to young adult level Estimated glomerular filtration rate is determined by the 2020 CKD-EPI equation recommended by the National Kidney Foundation (A Unifying Approach to GFR Estimation: Recommendations of the NKF-ASK Task Force on Reassessing the Inclusion of Race in Diagnosing Kidney Disease, JASN 2020). The CKD-EPI equation should not be used for patients with unstable renal function and has not been validated in children and those over 70. Current interpretive data was last reviewed 2021. [address] [address] Blood 11/18/2024 3:50 AM CDT 11/18/2024 4:17 AM CDT us Tad Talbot MD LAB BLOOD ORDERABLES Final R esult [facility] [address] Department [place] [address] * (ABNORMAL) Protime-INR (11/18/2024 3:50 AM CDT) PT 49.60(H) 12.00 - 14.60 sec [facility] VALENTINO Comment: Ref Range High [address] [address] INR 5.39(C) 0.90 - 1.20 [facility] VALENTINO Comment: Ref Range High Critical value. Results called to and read back by: Critical Result called to and read back by [id number], DATE: 2024-11-18 05:55:21 BY: [email or web address] Interpretive data Oral anticoagulant therapeutic ranges: Venous thromboembolism prophylaxis or treatment: 2.0-3.0 CARDIOLOGY Standard range: 2.0-3.0 High-intensity range: 2.5-3.5 Refer to indication-specific guidelines for appropriate target ranges for prosthetic heart valve replacement. Current interpretive data was last revised on 2019. [facility], [address] [place] [address]., [address] Blood 11/18/2024 3:50 AM CDT 11/18/2024 4:17 AM CDT us Tad Talbot MD LAB BLOOD ORDERABLES Final R esult [facility] [address] Department [place] [address] * (ABNORMAL) CBC without differential (11/18/2024 3:50 AM CDT) WBC 9.91(H) 3.80 - 9.90 K/cumm [facility] Comment:[address] [address] Hgb 10.2(L) 11.9 - 15.5 g/dL [facility] Comment:[address] [address] Hct 35.1(L) 35.6 - 45.5 % [facility] Comment:[address] [address] Plt 353 150 - 400 K/cumm [facility] Comment:[address] [address] MPV 9.9 9.1 - 12.3 fL [facility] Comment:[address] [address] RBC 4.26 3.90 - 5.20 M/cumm [facility] Comment:[address] [address] MCV 82.4 81.3 - 96.4 fL [facility] Comment:[address] [address] MCH 23.9(L) 27.1 - 33.3 pg [facility] Comment:[address] [address] MCHC 29.1(L) 32.3 - 35.7 g/dL [facility] Comment:[address] [address] RDW CV 19.9(H) 11.1 - 14.9 % [facility] Comment:[address] [address] RDW SD 53.1(H) 35.7 - 48.1 fL [facility] Comment:[address], [address] NRBC abs 0.00 0.00 - 0.01 K/cumm [facility] Comment:[address], [address] Blood 11/18/2024 3:50 AM CDT 11/18/2024 4:17 AM CDT Tad Talbot MD LAB BLOOD ORDERABLES Final R esult [facility] [address] [facility] Department [place] [address] * (ABNORMAL) Comprehensive metabolic panel (11/18/2024 3:50 AM CDT) Sodium 137 135 - 145 mmol/L [facility] Comment:[address] [address] Potassium, pl 5.1(H) 3.3 - 4.9 mmol/L [facility] Comment:[address] [address] Chloride 98 97 - 110 mmol/L [facility] Comment:[address], [address] CO2 29 22 - 32 mmol/L [facility] Comment:[address], [address] Anion gap 10 2 - 15 mmol/L [facility] Comment:[address], [address] BUN 22 6 - 25 mg/dL [facility] Comment:[address] [address] Creatinine 1.11(H) 0.60 - 1.10 mg/dL [facility] Comment:[address] [address] Glucose 114 70 - 199 mg/dL [facility] Comment: Interpretive Data Fasting glucose >/= 126 mg/dl is diagnostic for diabetes. Fasting is defined as no caloric intake for at least 8 hours. Fasting glucose between 100 mg/dl to 125 mg/dl is diagnostic of prediabetes. In a patient with classic symptoms of hyperglycemia or hyperglycemic crisis, a random glucose >/= 200 mg/dl is diagnostic for diabetes. In the absence of unequivocal hyperglycemia, results should be confirmed by repeat testing. The classification and Diagnosis of Diabetes Diabetes Care 202; 46: S19-S40. Current interpretive data was last revised 2022. [facility], [address] [place]., [address] Calcium 8.8 8.5 - 10.3 mg/dL [facility] Comment:[address] [address] Bilirubin, total 0.3 0.1 - 1.2 mg/dL [facility] Comment:[address] [address] Protein, pl 7.5 6.5 - 8.5 g/dL [facility] Comment:[address] [address] Albumin 3.5 3.5 - 5.0 g/dL [facility] Comment:[address] [address] Alk phos 131(H) 40 - 130 Units/L [facility] Comment:[address] [address] ALT 25 7 - 45 Units/L [facility] Comment:[address] [address] AST 35 10 - 45 Units/L [facility] Comment:[address] [address] Blood 11/18/2024 3:50 AM CDT 11/18/2024 4:17 AM CDT us Tad Talbot MD LAB BLOOD ORDERABLES Final R esult Performing Organization Address [facility] Co de Phone Number JOHN[address] [employer] [place] [address] * POCT glucose (11/14/2024 12:34 PM CDT) Glucose, POC 114 70 - 199 mg/dL Comment:Testing performed by : [address] [address] Blood 11/14/2024 12:3 4 PM CDT 11/14/2024 12:34 PM CDT Osiris Kumari MD LAB POCT ORDERABLES - DE VICE Final Result Performing Organization Address [facility] Co de Phone Number [address] [address] * POCT glucose (11/14/2024 7:58 AM CDT) [facility] Glucose, POC 112 70 - 199 mg/dL Comment:Testing performed by : [address] [address] Blood 11/14/2024 7:58 AM CDT 11/14/2024 7:58 AM CDT Osiris Kumari MD LAB POCT ORDERABLES - DE VICE Final Result Performing Organization Address [facility] Co de Phone Number [address] [employer] [place] [address] * eGFR (11/14/2024 4:44 AM CDT) eGFR 61 >=60 mL/min/1. 73 m2 Comment: Interpretive Data Reference Interval Normal >/= 90 mL/min/1.73m2 Mildly decreased* 60 - 89 mL/min/1.73m2 Mildly to moderately decreased 45 - 59 mL/min/1.73m2 Moderately to severely decreased 30 - 44 mL/min/1.73m2 Severely decreased 15 - 29 mL/min/1.73m2 Kidney Failure < 15 mL/min/1.73m2 *Relative to young adult level Estimated glomerular filtration rate is determined by the 2020 CKD-EPI equation recommended by the National Kidney Foundation (A Unifying Approach to GFR Estimation: Recommendations of the NKF-ASK Task Force on Reassessing the Inclusion of Race in Diagnosing Kidney Disease, JASN 2020). The CKD-EPI equation should not be used for patients with unstable renal function and has not been validated in children and those over 70. Current interpretive data was last reviewed 2021. Testing performed by: [address] [address] Blood 11/14/2024 4:44 AM CDT 11/14/2024 5:05 AM CDT us Osiris Kumari MD LAB BLOOD ORDERABLES Fin al Result [facility] [address] [facility] Department [place] [address] * (ABNORMAL) Protime-INR (11/14/2024 4:44 AM CDT) PT 22.0(H) 12.0 - 14.6 sec Comment: Ref Range High Testing performed by: [address] [address] INR 2.0(H) 0.9 - 1.2 [facility] Comment: Ref Range High Interpretive data Oral anticoagulant therapeutic ranges: Venous thromboembolism prophylaxis or treatment: 2.0-3.0 CARDIOLOGY Standard range: 2.0-3.0 High-intensity range: 2.5-3.5 Refer to indication-specific guidelines for appropriate target ranges for prosthetic heart valve replacement. Current interpretive data was last revised on 2019. Testing performed by: [address] [address] Blood 11/14/2024 4:44 AM CDT 11/14/2024 5:05 AM CDT us Osiris Kumari MD LAB BLOOD ORDERABLES Fin al Result [facility] [address] [facility] Department [place] [address] * (ABNORMAL) CBC without differential (11/14/2024 4:44 AM CDT) [facility] Signature WBC 9.56 3.80 - 9.90 K/cumm Comment:Testing performed by : [address] [address] Hgb 9.0(L) 11.9 - 15.5 g/dL [facility] Comment:Testing performed by : [address] [address] Hct 31.4(L) 35.6 - 45.5 % [facility] Comment:Testing performed by : [address] [address] Plt 299 150 - 400 K/cumm [facility] Comment:Testing performed by : [address] [address] MPV 9.7 9.1 - 12.3 fL [facility] Comment:Testing performed by : [address] [address] RBC 3.86(L) 3.90 - 5.20 M/cumm [facility] Comment:Testing performed by : [address] [address] MCV 81.3 81.3 - 96.4 fL [facility] Comment:Testing performed by : [address] [address] MCH 23.3(L) 27.1 - 33.3 pg [facility] Comment:Testing performed by : [address] [address] MCHC 28.7(L) 32.3 - 35.7 g/dL [facility] Comment:Testing performed by : [address] [address] RDW CV 18.3(H) 11.1 - 14.9 % [facility] Comment:Testing performed by : [address] [address] RDW SD 53.4(H) 35.7 - 48.1 fL [facility] VALENTINO Comment:Testing performed by : [address] [address] NRBC abs 0.00 0.00 - 0.01 K/cumm [facility] VAL[facility]INO Comment:Testing performed by : [address] [address] Blood 11/14/2024 4:44 AM CDT 11/14/2024 5:05 AM CDT Narrative [facility] - 11/14/2024 5:07 AM CDT While on enoxaparin Osiris Kumari MD LAB BLOOD ORDERABLES Fin al Result Performing Organization Address City/[facility]/ZIP Co de Phone Number [facility] [employer] [place] [address] * Creatinine (11/14/2024 4:44 AM CDT) Creatinine 0.95 0.60 - 1.10 mg/dL Comment:Testing performed by : [address] [address] Blood 11/14/2024 4:44 AM CDT 11/14/2024 5:05 AM CDT Narrative [facility] - 11/14/2024 5:40 AM CDT While on enoxaparin Osiris Kumari MD LAB BLOOD ORDERABLES Fin al Result JOHN[address] [place] [address] * POCT glucose (11/13/2024 9:42 PM CDT) Glucose, POC 132 70 - 199 mg/dL Comment:Testing performed by : [address] [address] Glucose comment 1 RN/MD Notified [facility] Comment:Testing performed by : [address] [address] Blood 11/13/2024 9:42 PM CDT 11/13/2024 9:42 PM CDT Osiris Kumari MD LAB POCT ORDERABLES - DE VICE Final Result Performing Organization Address City/[facility] Co de Phone Number JOHN[address] [address] * POCT glucose (11/13/2024 5:14 PM CDT) Glucose, POC 118 70 - 199 mg/dL Comment:Testing performed by : [address] [address] Blood 11/13/2024 5:14 PM CDT 11/13/2024 5:14 PM CDT Osiris Kumari MD LAB POCT ORDERABLES - DE VICE Final Result Performing Organization Address [facility] Co de Phone Number [address] [address] * POCT glucose (11/13/2024 1:40 PM CDT) Glucose, POC 101 70 - 199 mg/dL Comment:Testing performed by : [address] [address] Blood 11/13/2024 1:40 PM CDT 11/13/2024 1:40 PM CDT Osiris Kumari MD LAB POCT ORDERABLES - DE VICE Final Result Performing Organization Address City/[facility] Co de Phone Number [address] [address] * POCT glucose (11/13/2024 7:54 AM CDT) Glucose, POC 120 70 - 199 mg/dL Comment:Testing performed by : [address], [place]., [address] Blood 11/13/2024 7:54 AM CDT 11/13/2024 7:54 AM CDT us Osiris Kumari MD LAB POCT ORDERABLES - DE VICE Final Result Performing Organization Address [facility] Co de Phone Number [facility] [address] [place] [address] * (ABNORMAL) eGFR (11/13/2024 4:44 AM CDT) eGFR 57(L) >=60 mL/min/1. 73 m2 Comment: Interpretive Data Reference Interval Normal >/= 90 mL/min/1.73m2 Mildly decreased* 60 - 89 mL/min/1.73m2 Mildly to moderately decreased 45 - 59 mL/min/1.73m2 Moderately to severely decreased 30 - 44 mL/min/1.73m2 Severely decreased 15 - 29 mL/min/1.73m2 Kidney Failure < 15 mL/min/1.73m2 *Relative to young adult level Estimated glomerular filtration rate is determined by the 2020 CKD-EPI equation recommended by the National Kidney Foundation (A Unifying Approach to GFR Estimation: Recommendations of the NKF-ASK Task Force on Reassessing the Inclusion of Race in Diagnosing Kidney Disease, JASN 2020). The CKD-EPI equation should not be used for patients with unstable renal function and has not been validated in children and those over 70. Current interpretive data was last reviewed 2021. Testing performed by: [facility], [address] [place] [address]., [address] Blood 11/13/2024 4:44 AM CDT 11/13/2024 5:08 AM CDT us Matteo Amaya MD LAB BLOOD ORDERABLES Final Re sult Performing Organization Address City/[facility]/ZIP Co de Phone Number [facility] [place] [address] * (ABNORMAL) Differential, auto (11/13/2024 4:44 AM CDT) [facility] Neutrophil abs 7.55(H) 1.50 - 6.50 K/cumm Comment:Testing performed by : [address] [address] Imm gran abs 0.07 0.00 - 0.10 K/cumm [facility] Comment:Testing performed by : [address] [address] Lymphocyte abs 1.64 0.80 - 3.30 K/cumm [facility] Comment:Testing performed by : [address] [address] Monocyte abs 0.98(H) 0.20 - 0.80 K/cumm [facility] Comment:Testing performed by : [address] [address] Eosinophil abs 0.23 0.00 - 0.50 K/cumm [facility] Comment:Testing performed by : [address] [address] Basophil abs 0.06 0.00 - 0.10 K/cumm [facility] Comment:Testing performed by : [address] [address] Neutrophil pct 71.6 % [facility] Comment: Interpretive Data Percent cell count reference ranges are not reported, since discordance with absolute values may lead to misinterpretation of CBC data. Current Interpretive Data was last revised on 2017. Testing performed by: [address] [address] Imm gran pct 0.7 % [facility] Comment: Interpretive Data Percent cell count reference ranges are not reported, since discordance with absolute values may lead to misinterpretation of CBC data. Current Interpretive Data was last revised on 2017. Testing performed by: [address] [address] Lymphocyte pct 15.6 % [facility] Comment: Interpretive Data Percent cell count reference ranges are not reported, since discordance with absolute values may lead to misinterpretation of CBC data. Current Interpretive Data was last revised on 2017. Testing performed by: [address] [place] [address] Monocyte pct 9.3 % [facility] Comment: Interpretive Data Percent cell count reference ranges are not reported, since discordance with absolute values may lead to misinterpretation of CBC data. Current Interpretive Data was last revised on 2017. Testing performed by: [address] [address] Eosinophil pct 2.2 % AVRIL VALENTINO Comment: Interpretive Data Percent cell count reference ranges are not reported, since discordance with absolute values may lead to misinterpretation of CBC data. Current Interpretive Data was last revised on 2017. Testing performed by: [address] [address] Basophil pct 0.6 % AVRIL Comment: Interpretive Data Percent cell count reference ranges are not reported, since discordance with absolute values may lead to misinterpretation of CBC data. Current Interpretive Data was last revised on 2017. Testing performed by: [address] [address] Blood 11/13/2024 4:44 AM CDT 11/13/2024 5:12 AM CDT us Matteo Amaya MD LAB BLOOD ORDERABLES Final Re sult AVRIL [address] [facility] Department of Laboratories [place], [place] [id number] * (ABNORMAL) CBC with auto differential (11/13/2024 4:44 AM CDT) WBC 10.53(H) 3.80 - 9.90 K/cumm Comment:Testing performed by : [address] [address] Hgb 8.8(L) 11.9 - 15.5 g/dL AVRIL VALENTINO Comment:Testing performed by : [address] [address] Hct 30.9(L) 35.6 - 45.5 % AVRIL VALENTINO Comment:Testing performed by : [address] [address] Plt 231 150 - 400 K/cumm AVRIL Comment:Testing performed by : [address] [address] MPV 10.3 9.1 - 12.3 fL AVRIL VALENTINO Comment:Testing performed by : [address] [address] RBC 3.82(L) 3.90 - 5.20 M/cumm AVRIL Comment:Testing performed by : [address] [address] MCV 80.9(L) 81.3 - 96.4 fL AVRIL Comment:Testing performed by : [address] [address] MCH 23.0(L) 27.1 - 33.3 pg AVRIL Comment:Testing performed by : [address] [address] MCHC 28.5(L) 32.3 - 35.7 g/dL AVRIL Comment:Testing performed by : [address] [address] RDW CV 18.0(H) 11.1 - 14.9 % AVRIL Comment:Testing performed by : [address] [address] RDW SD 52.6(H) 35.7 - 48.1 fL AVRIL Comment:Testing performed by : [address] [address] NRBC abs 0.00 0.00 - 0.01 K/cumm AVRIL Comment:Testing performed by : [address] [address] Blood 11/13/2024 4:44 AM CDT 11/13/2024 5:12 AM CDT us Matteo Amaya MD LAB BLOOD ORDERABLES Final Re sult AVRIL 1894 [facility] Department [place] [address] * (ABNORMAL) Protime-INR (11/13/2024 4:44 AM CDT) PT 18.6(H) 12.0 - 14.6 sec Comment: Ref Range High Testing performed by: [address] [address] INR 1.6(H) 0.9 - 1.2 VARIL Comment: Ref Range High Interpretive data Oral anticoagulant therapeutic ranges: Venous thromboembolism prophylaxis or treatment: 2.0-3.0 CARDIOLOGY Standard range: 2.0-3.0 High-intensity range: 2.5-3.5 Refer to indication-specific guidelines for appropriate target ranges for prosthetic heart valve replacement. Current interpretive data was last revised on 2019. Testing performed by: [address] [address] Blood 11/13/2024 4:44 AM CDT 11/13/2024 5:08 AM CDT Osiris Kumari MD LAB BLOOD ORDERABLES Fin al Result [facility] 55[address] [facility] Department [place] [address] * Basic metabolic panel (11/13/2024 4:44 AM CDT) Sodium 137 135 - 145 mmol/L Comment:Testing performed by : [address] [address] Potassium, pl 4.9 3.3 - 4.9 mmol/L AVRIL Comment: Hemolyzed; Potassium value may be falsely elevated by as much as 1.0 mmol/L. Suggest redraw and reanalysis. Testing performed by: [address] [address] Chloride 103 97 - 110 mmol/L AVRIL Comment:Testing performed by : [address] [address] CO2 25 22 - 32 mmol/L AVRIL Comment:Testing performed by : [address] [address] Anion gap 9 2 - 15 mmol/L AVRIL Comment:Testing performed by : [address] [address] BUN 16 6 - 25 mg/dL AVRIL Comment:Testing performed by : [address] [address] Creatinine 1.01 0.60 - 1.10 mg/dL AVRIL Comment:Testing performed by : [address] [address] Glucose 124 70 - 199 mg/dL AVRIL Comment: Delta - Results Reviewed Interpretive Data Fasting glucose >/= 126 mg/dl is diagnostic for diabetes. Fasting is defined as no caloric intake for at least 8 hours. Fasting glucose between 100 mg/dl to 125 mg/dl is diagnostic of prediabetes. In a patient with classic symptoms of hyperglycemia or hyperglycemic crisis, a random glucose >/= 200 mg/dl is diagnostic for diabetes. In the absence of unequivocal hyperglycemia, results should be confirmed by repeat testing. The classification and Diagnosis of Diabetes Diabetes Care 2021; 46: S19-S40. Current interpretive data was last revised 2022. Testing performed by: [address] [address] Calcium 8.5 8.5 - 10.3 mg/dL AVRIL Comment:Testing performed by : [address] [address] Blood 11/13/2024 4:44 AM CDT 11/13/2024 5:08 AM CDT us Matteo Amaya MD LAB BLOOD ORDERABLES Final Re sult [facility] 0[address] [facility] Department [place] [address] * POCT glucose (11/12/2024 8:57 PM CDT) [facility] Signature Glucose, POC 127 70 - 199 mg/dL Comment:Testing performed by : [address] [address] Blood 11/12/2024 8:57 PM CDT 11/12/2024 8:57 PM CDT Osiris Kumari MD LAB POCT ORDERABLES - DE VICE Final Result Performing Organization Address [facility] Co de Phone Number AVRIL [address] [employer] [address] * POCT glucose (11/12/2024 5:06 PM CDT) Glucose, POC 128 70 - 199 mg/dL Comment:Testing performed by : [address] [address] Blood 11/12/2024 5:06 PM CDT 11/12/2024 5:06 PM CDT Osiris Kumari MD LAB POCT ORDERABLES - DE VICE Final Result Performing Organization Address [facility] Co de Phone Number [address] [address] * POCT glucose (11/12/2024 11:40 AM CDT) [facility] Glucose, POC 142 70 - 199 mg/dL Comment:Testing performed by : [facility], [address] [place] [address]., [address] Blood 11/12/2024 11:4 0 AM CDT 11/12/2024 11:40 AM CDT Osiris Kumari MD LAB POCT ORDERABLES - DE VICE Final Result Performing Organization Address [facility] Co de Phone Number [address] [employer] [place] [address] * (ABNORMAL) eGFR (11/12/2024 9:15 AM CDT) [facility] eGFR 51(L) >=60 mL/min/1. 73 m2 Comment: Interpretive Data Reference Interval Normal >/= 90 mL/min/1.73m2 Mildly decreased* 60 - 89 mL/min/1.73m2 Mildly to moderately decreased 45 - 59 mL/min/1.73m2 Moderately to severely decreased 30 - 44 mL/min/1.73m2 Severely decreased 15 - 29 mL/min/1.73m2 Kidney Failure < 15 mL/min/1.73m2 *Relative to young adult level Estimated glomerular filtration rate is determined by the 2020 CKD-EPI equation recommended by the National Kid[employer] (A Unifying Approach to GFR Estimation: Recommendations of the NKF-ASK Task Force on Reassessing the Inclusion of Race in Diagnosing Kidney Disease, JASN 2020). The CKD-EPI equation should not be used for patients with unstable renal function and has not been validated in children and those over 70. Current interpretive data was last reviewed 2021. Testing performed by: [address] [address] Blood 11/12/2024 9:15 AM CDT 11/12/2024 9:36 AM CDT us Matteo Amaya MD LAB BLOOD ORDERABLES Final Re sult AVRIL 5[address] [facility] Department [place] [address] * (ABNORMAL) Differential, auto (11/12/2024 9:15 AM CDT) Neutrophil abs 9.77(H) 1.50 - 6.50 K/cumm Comment:Testing performed by : [address] [address] Imm gran abs 0.07 0.00 - 0.10 K/cumm AVRIL Comment:Testing performed by : [address] [address] Lymphocyte abs 1.53 0.80 - 3.30 K/cumm AVRIL Comment:Testing performed by : [address] [address] Monocyte abs 0.89(H) 0.20 - 0.80 K/cumm AVRIL Comment:Testing performed by : [address] [address] Eosinophil abs 0.18 0.00 - 0.50 K/cumm [facility] Comment:Testing performed by : [address] [address] Basophil abs 0.05 0.00 - 0.10 K/cumm [facility] Comment:Testing performed by : [address] [address] Neutrophil pct 78.3 % [facility] Comment: Interpretive Data Percent cell count reference ranges are not reported, since discordance with absolute values may lead to misinterpretation of CBC data. Current Interpretive Data was last revised on 2017. Testing performed by: [address] [address] Imm gran pct 0.6 % [facility] Comment: Interpretive Data Percent cell count reference ranges are not reported, since discordance with absolute values may lead to misinterpretation of CBC data. Current Interpretive Data was last revised on 2017. Testing performed by: [address] [address] Lymphocyte pct 12.2 % [facility] Comment: Interpretive Data Percent cell count reference ranges are not reported, since discordance with absolute values may lead to misinterpretation of CBC data. Current Interpretive Data was last revised on 2017. Testing performed by: [address] [address] Monocyte pct 7.1 % [facility] Comment: Interpretive Data Percent cell count reference ranges are not reported, since discordance with absolute values may lead to misinterpretation of CBC data. Current Interpretive Data was last revised on 2017. Testing performed by: [address] [address] Eosinophil pct 1.4 % [facility] Comment: Interpretive Data Percent cell count reference ranges are not reported, since discordance with absolute values may lead to misinterpretation of CBC data. Current Interpretive Data was last revised on 2017. Testing performed by: [address] [address] Basophil pct 0.4 % [facility] Comment: Interpretive Data Percent cell count reference ranges are not reported, since discordance with absolute values may lead to misinterpretation of CBC data. Current Interpretive Data was last revised on 2017. Testing performed by: [address] [address] Blood 11/12/2024 9:15 AM CDT 11/12/2024 9:36 AM CDT Matteo Amaya MD LAB BLOOD ORDERABLES Final Re sult Performing Organization Address [facility] de Phone Number [facility] [address] [facility] [place] [address] * (ABNORMAL) Iron profile w/ IBC (11/12/2024 9:15 AM CDT) Pathologist [facility] Iron 8(L) 35 - 145 mcg/dL Comment:Testing performed by : [address] [address] TIBC 294 250 - 400 mcg/dL AVRIL Comment:Testing performed by : [address] [address] Transferrin saturation 3(L) 20 - 50 % AVRIL Comment:Testing performed by : [address] [address] Blood 11/12/2024 9:15 AM CDT 11/12/2024 9:36 AM CDT Matteo Amaya MD LAB BLOOD ORDERABLES Final Re sult Performing Organization Address [facility] de Phone Number [facility] [address] [facility] [place] [address] * (ABNORMAL) CBC with auto differential (11/12/2024 9:15 AM CDT) Pathologist [facility] WBC 12.49(H) 3.80 - 9.90 K/cumm Comment:Testing performed by : [address] [address] Hgb 8.3(L) 11.9 - 15.5 g/dL AVRIL Comment:Testing performed by : [address] [address] Hct 28.4(L) 35.6 - 45.5 % AVRIL Comment:Testing performed by : [address] [address] Plt 230 150 - 400 K/cumm AVRIL Comment:Testing performed by : [address] [address] MPV 10.1 9.1 - 12.3 fL AVRIL Comment:Testing performed by : [address], [address] RBC 3.56(L) 3.90 - 5.20 M/cumm AVRIL Comment:Testing performed by : [address] [address] MCV 79.8(L) 81.3 - 96.4 fL AVRIL Comment:Testing performed by : [address] [address] MCH 23.3(L) 27.1 - 33.3 pg AVRIL Comment:Testing performed by : [address] [address] MCHC 29.2(L) 32.3 - 35.7 g/dL AVRIL Comment:Testing performed by : [address], [address] RDW CV 17.8(H) 11.1 - 14.9 % AVRIL Comment:Testing performed by : [address], [address] RDW SD 51.8(H) 35.7 - 48.1 fL AVRIL Comment:Testing performed by : [address] [address] NRBC abs 0.00 0.00 - 0.01 K/cumm AVRIL Comment:Testing performed by : [address], [address] Blood 11/12/2024 9:15 AM CDT 11/12/2024 9:36 AM CDT us Matteo Amaya MD LAB BLOOD ORDERABLES Final Re sult Performing Organization Address [facility] Co de Phone Number [address] [address] * (ABNORMAL) Protime-INR (11/12/2024 9:15 AM CDT) PT 29.4(H) 12.0 - 14.6 sec Comment: Ref Range High Testing performed by: [address] [address] INR 2.8(H) 0.9 - 1.2 [facility] Comment: Ref Range High Interpretive data Oral anticoagulant therapeutic ranges: Venous thromboembolism prophylaxis or treatment: 2.0-3.0 CARDIOLOGY Standard range: 2.0-3.0 High-intensity range: 2.5-3.5 Refer to indication-specific guidelines for appropriate target ranges for prosthetic heart valve replacement. Current interpretive data was last revised on 2019. Testing performed by: [address] [address] Blood 11/12/2024 9:15 AM CDT 11/12/2024 9:36 AM CDT Osiris Kumari MD LAB BLOOD ORDERABLES Fin al Result Performing Organization Address [facility] de Phone Number [address] [address] * (ABNORMAL) Lactate dehydrogenase (LD) (11/12/2024 9:15 AM CDT) Lactate dehydrogenase (LDH) 598(H) 100 - 250 Units/L Comment:Testing performed by : [address] [address] Blood 11/12/2024 9:15 AM CDT 11/12/2024 9:36 AM CDT Matteo Amaya MD LAB BLOOD ORDERABLES Final Re sult Performing Organization Address [facility] Co de Phone Number JOHN[address] [address] * Folate (11/12/2024 9:15 AM CDT) Pathologist [facility] Folic acid 11.6 >=5.0 ng/mL Comment:Testing performed by : [address] [address] Blood 11/12/2024 9:15 AM CDT 11/12/2024 9:36 AM CDT Matteo Amaya MD LAB BLOOD ORDERABLES Final Re sult Performing Organization Address [facility] Co de Phone Number JOHN[address] [address] * (ABNORMAL) Vitamin B12 (11/12/2024 9:15 AM CDT) [facility] Vitamin B12 225(L) 230 - 1,250 pg/mL Comment:Testing performed by : [address] [address] Blood 11/12/2024 9:15 AM CDT 11/12/2024 9:36 AM CDT Matteo Amaya MD LAB BLOOD ORDERABLES Final Re sult Performing Organization Address [facility] Co de Phone Number JOHN[address] [address] * Creatine kinase (CK), total (11/12/2024 9:15 AM CDT) [facility] CK 89 30 - 200 Units/L Comment:Testing performed by : [address] [address] Blood 11/12/2024 9:15 AM CDT 11/12/2024 9:36 AM CDT Matteo Amaya MD LAB BLOOD ORDERABLES Final Re sult Performing Organization Address City/[facility]/ZIP Co de Phone Number AVRIL [address] [facility] Department [place] [address] * (ABNORMAL) Comprehensive metabolic panel (11/12/2024 9:15 AM CDT) Sodium 135 135 - 145 mmol/L Comment:Testing performed by : [facility], [address] [place] [address]., [address] Potassium, pl 4.4 3.3 - 4.9 mmol/L AVRIL Comment:Testing performed by : [address], [place]., [address] Chloride 101 97 - 110 mmol/L AVRIL Comment:Testing performed by : [address], [place]., [address] CO2 25 22 - 32 mmol/L AVRIL Comment:Testing performed by : [address], [place]., [address] Anion gap 9 2 - 15 mmol/L AVRIL Comment:Testing performed by : [address] [address] BUN 16 6 - 25 mg/dL AVRIL Comment:Testing performed by : [address], [place]., [address] Creatinine 1.11(H) 0.60 - 1.10 mg/dL AVRIL Comment:Testing performed by : [address] [address] Glucose 250(H) 70 - 199 mg/dL AVRIL Comment: Delta - Results Reviewed Interpretive Data Fasting glucose >/= 126 mg/dl is diagnostic for diabetes. Fasting is defined as no caloric intake for at least 8 hours. Fasting glucose between 100 mg/dl to 125 mg/dl is diagnostic of prediabetes. In a patient with classic symptoms of hyperglycemia or hyperglycemic crisis, a random glucose >/= 200 mg/dl is diagnostic for diabetes. In the absence of unequivocal hyperglycemia, results should be confirmed by repeat testing. The classification and Diagnosis of Diabetes Diabetes Care 202; 46: S19-S40. Current interpretive data was last revised 2022. Testing performed by: [address] [address] Calcium 8.3(L) 8.5 - 10.3 mg/dL AVRIL Comment:Testing performed by : [address] [address] Bilirubin, total 0.2 0.1 - 1.2 mg/dL AVRIL Comment:Testing performed by : [address] [address] Protein, pl 6.7 6.5 - 8.5 g/dL AVRIL Comment:Testing performed by : [address] [address] Albumin 2.9(L) 3.5 - 5.0 g/dL AVRIL Comment:Testing performed by : [address] [address] Alk phos 115 40 - 130 Units/L AVRIL Comment:Testing performed by : [address] [address] ALT 31 7 - 45 Units/L AVRIL Comment:Testing performed by : [address] [address] AST 38 10 - 45 Units/L AVRIL Comment:Testing performed by : [address] [address] Blood 11/12/2024 9:15 AM CDT 11/12/2024 9:36 AM CDT us Matteo Amaya MD LAB BLOOD ORDERABLES Final Re sult VARIL [address] [facility] Department of Laboratories [place], [place] [id number] * POCT glucose (11/12/2024 8:11 AM CDT) [facility] Signature Glucose, POC 135 70 - 199 mg/dL Comment:Testing performed by : [address] [address] Blood 11/12/2024 8:11 AM CDT 11/12/2024 8:11 AM CDT us Osiris Kumari MD LAB POCT ORDERABLES - DE VICE Final Result Performing Organization Address City/[facility]/ZIP Co de Phone Number AVRLI [address] [employer] [address] * POCT glucose (11/11/2024 9:29 PM CDT) Glucose, POC 147 70 - 199 mg/dL Comment:Testing performed by : [address] [address] Blood 11/11/2024 9:29 PM CDT 11/11/2024 9:29 PM CDT Osiris Kumari MD LAB POCT ORDERABLES - DE VICE Final Result Performing Organization Address [facility] Co de Phone Number [address] [employer] [address] * (ABNORMAL) Protime-INR (11/11/2024 7:23 PM CDT) PT 27.1(H) 12.0 - 14.6 sec Comment: Ref Range High Testing performed by: [address] [address] INR 2.6(H) 0.9 - 1.2 AVRIL Comment: Ref Range High Interpretive data Oral anticoagulant therapeutic ranges: Venous thromboembolism prophylaxis or treatment: 2.0-3.0 CARDIOLOGY Standard range: 2.0-3.0 High-intensity range: 2.5-3.5 Refer to indication-specific guidelines for appropriate target ranges for prosthetic heart valve replacement. Current interpretive data was last revised on 2019. Testing performed by: [address] [address] Blood 11/11/2024 7:23 PM CDT 11/11/2024 7:38 PM CDT Osiris Kumari MD LAB BLOOD ORDERABLES Fin al Result Performing Organization Address City/[facility]/ZIP Co de Phone Number AVRIL [address] [address] * POCT glucose (11/11/2024 6:21 PM CDT) Glucose, POC 148 70 - 199 mg/dL Comment:Testing performed by : [address] [address] Blood 11/11/2024 6:21 PM CDT 11/11/2024 6:21 PM CDT Osiris Kumari MD LAB POCT ORDERABLES - DE VICE Final Result Performing Organization Address City/[facility]/ZIP Co de Phone Number [address] [address] * POCT glucose (11/11/2024 1:07 PM CDT) Glucose, POC 139 70 - 199 mg/dL Comment:Testing performed by : [address] [address] Blood 11/11/2024 1:07 PM CDT 11/11/2024 1:07 PM CDT Osiris Kumari MD LAB POCT ORDERABLES - DE VICE Final Result Performing Organization Address City/[facility]/ZIP Co de Phone Number [address] [address] * MRI Brain W Contrast (11/11/2024 12:54 PM CDT) Anatomical Region Laterality Modality Head and Neck N/A Magnetic Resonan ce 11/11/2024 1:19 PM CDT Narrative 11/11/2024 1:34 PM CDT EXAM DESCRIPTION: MRI BRAIN W CONTRAST REASON FOR STUDY: extraxial mass, can just do contrast portion Adjacent to the inferior right frontal lobe there is an ovoid 2.2 x 1.3 by 1.6 cm area of FLAIR hypointense, T2 hyperintense and T1 hyperintense extra-axial signal, corresponding to the area of hypodensity on comparison CT Motion repeats TECHNIQUE: MR of the brain with intravenous contrast was performed according to standard technique. No precontrast sequences (such as T1 or T2 were performed, a noncontrast brain MRI was performed yesterday. ) CONTRAST TYPE/DOSE: 20mL of GADOTERATE MEGLUMINE 0.5 MMOL/ML INTRAVENOUS SOLUTION (SO) injected via intravenous COMPARISON: Brain MRI without contrast 11/10/2024. Head CT and CTA 11/10/2024. FINDINGS: Only postcontrast sequences were performed. Please refer to noncontrast brain MRI performed on 11/10/2024 for full findings. Evaluation is limited by motion artifact. The previously described signal abnormality along the right anteroinferior frontal lobe is unchanged from the prior examination. This does not demonstrate contrast enhancement. There is a possible punctate focus of cortical contrast enhancement within the right parietal lobe (series 9, image 106). This appears somewhat linear and may possibly represent a developmental venous anomaly, but the finding is suboptimally evaluated due to motion artifact. IMPRESSION: 1. The previously described small signal abnormality along the right anteroinferior frontal lobe does not demonstrate contrast enhancement. This most likely represents an arachnoid cyst. This could alternatively represent encephalomalacia of the right anteroinferior frontal lobe from prior trauma or infarction. 2. Possible punctate focus of cortical contrast enhancement within the right parietal lobe (series 9 image 106). This appears somewhat linear and may possibly represent a developmental venous anomaly, but the finding is suboptimally evaluated due to motion artifact. Repeat brain MRI with and without contrast in 3 months is recommended. THIS IS AN ELECTRONICALLY VERIFIED FINAL REPORT 11/11/2024 1:34 PM - Electronically signed by Dimitry Carlson M.D. MM: MM Report ID: [id number] Reading Location: [id number] Procedure Note Dimitry Carlson MD - 11/11/2024 EXAM DESCRIPTION: MRI BRAIN W CONTRAST REASON FOR STUDY: extraxial mass, can just do contrast portion Adjacent to the inferior right frontal lobe there is an ovoid 2.2 x 1.3by 1.6 cm area of FLAIR hypointense, T2 hyperintense and T1 hyperintense extra-axial signal, corresponding to the area of hypodensity oncomparison CT Motion repeats TECHNIQUE: MR of the brain with intravenous contrast was performedaccording to standard technique. No precontrast sequences (such as T1 or T2 were performed, a noncontrast brain MRI was performed yesterday. ) CONTRAST TYPE/DOSE: 20mL of GADOTERATE MEGLUMINE 0.5 MMOL/ML INTRAVENOUS SOLUTION (SO) injected via intravenous COMPARISON: Brain MRI without contrast 11/10/2024. Head CT and CTA 11/10/2024. FINDINGS: Only postcontrast sequences were performed. Please refer to noncontrast brain MRI performed on 11/10/2024 for full findings. Evaluation is limited by motion artifact. The previously described signal abnormality along the right anteroinferior frontal lobe is unchanged from the prior examination. This does not demonstrate contrast enhancement. There is a possible punctate focus of cortical contrast enhancement withinthe right parietal lobe (series 9, image 106). This appears somewhat linearand may possibly represent a developmental venous anomaly, but the finding is suboptimally evaluated due to motion artifact. IMPRESSION: 1. The previously described small signal abnormality along the right anteroinferior frontal lobe does not demonstrate contrast enhancement.This most likely represents an arachnoid cyst. This could alternativelyrepresent encephalomalacia of the right anteroinferior frontal lobe from priortrauma or infarction. 2. Possible punctate focus of cortical contrast enhancement within theright parietal lobe (series 9 image 106). This appears somewhat linear and may possibly represent a developmental venous anomaly, but the finding is suboptimally evaluated due to motion artifact. Repeat brain MRI with and without contrast in 3 months is recommended. THIS IS AN ELECTRONICALLY VERIFIED FINAL REPORT 11/11/2024 1:34 PM - Electronically signed by Dimitry Carlson M.D. MM: MM Report ID: [id number] Reading Location: [id number] us Craig Yates MD IMG MRI PROCEDURES F inal Result * (ABNORMAL) eGFR (11/11/2024 3:51 AM CDT) eGFR 48(L) >=60 mL/min/1. 73 m2 Comment: Interpretive Data Reference Interval Normal >/= 90 mL/min/1.73m2 Mildly decreased* 60 - 89 mL/min/1.73m2 Mildly to moderately decreased 45 - 59 mL/min/1.73m2 Moderately to severely decreased 30 - 44 mL/min/1.73m2 Severely decreased 15 - 29 mL/min/1.73m2 Kidney Failure < 15 mL/min/1.73m2 *Relative to young adult level Estimated glomerular filtration rate is determined by the 2020 CKD-EPI equation recommended by the [employer] (A Unifying Approach to GFR Estimation: Recommendations of the NKF-ASK Task Force on Reassessing the Inclusion of Race in Diagnosing Kidney Disease, JASN 2020). The CKD-EPI equation should not be used for patients with unstable renal function and has not been validated in children and those over 70. Current interpretive data was last reviewed 2021. Testing performed by: [address] [address] Blood 11/11/2024 3:51 AM CDT 11/11/2024 4:38 AM CDT us Osiris Kumari MD LAB BLOOD ORDERABLES Fin al Result AVIRL [address] [facility] Department of Laboratories [place], [place] [id number] * (ABNORMAL) Differential, auto (11/11/2024 3:51 AM CDT) Neutrophil abs 14.01(H) 1.50 - 6.50 K/cumm Comment:Testing performed by : [address] [address] Imm gran abs 0.10 0.00 - 0.10 K/cumm [facility] Comment:Testing performed by : [address] [address] Lymphocyte abs 2.27 0.80 - 3.30 K/cumm [facility] Comment:Testing performed by : [address] [address] Monocyte abs 2.02(H) 0.20 - 0.80 K/cumm [facility]:Testing performed by : [address] [address] Eosinophil abs 0.05 0.00 - 0.50 K/cumm [facility] Comment:Testing performed by : [address], [place]., [address] Basophil abs 0.06 0.00 - 0.10 K/cumm [facility] Comment:Testing performed by : [address] [address] Neutrophil pct 75.7 % [facility] Comment: Interpretive Data Percent cell count reference ranges are not reported, since discordance with absolute values may lead to misinterpretation of CBC data. Current Interpretive Data was last revised on 2017. Testing performed by: [address] [address] Imm gran pct 0.5 % [facility] Comment: Interpretive Data Percent cell count reference ranges are not reported, since discordance with absolute values may lead to misinterpretation of CBC data. Current Interpretive Data was last revised on 2017. Testing performed by: [address] [address] Lymphocyte pct 12.3 % [facility] Comment: Interpretive Data Percent cell count reference ranges are not reported, since discordance with absolute values may lead to misinterpretation of CBC data. Current Interpretive Data was last revised on 2017. Testing performed by: [address] [address] Monocyte pct 10.9 % [facility] Comment: Interpretive Data Percent cell count reference ranges are not reported, since discordance with absolute values may lead to misinterpretation of CBC data. Current Interpretive Data was last revised on 2017. Testing performed by: [address] [address] Eosinophil pct 0.3 % [facility] Comment: Interpretive Data Percent cell count reference ranges are not reported, since discordance with absolute values may lead to misinterpretation of CBC data. Current Interpretive Data was last revised on 2017. Testing performed by: [address] [address] Basophil pct 0.3 % [facility] Comment: Interpretive Data Percent cell count reference ranges are not reported, since discordance with absolute values may lead to misinterpretation of CBC data. Current Interpretive Data was last revised on 2017. Testing performed by: [address] [address] Blood 11/11/2024 3:51 AM CDT 11/11/2024 4:38 AM CDT us Osiris Kumari MD LAB BLOOD ORDERABLES Fin al Result AV[facility] [address] [facility] Department [place] [address] * (ABNORMAL) CBC with auto differential (11/11/2024 3:51 AM CDT) WBC 18.51(H) 3.80 - 9.90 K/cumm Comment:Testing performed by : [address] [address] Hgb 8.8(L) 11.9 - 15.5 g/dL [facility] Comment:Testing performed by : [address] [address] Hct 29.5(L) 35.6 - 45.5 % [facility] Comment:Testing performed by : [address] [address] Plt 243 150 - 400 K/cumm [facility] Comment:Testing performed by : [address] [address] MPV 10.0 9.1 - 12.3 fL [facility] Comment:Testing performed by : [address] [address] RBC 3.75(L) 3.90 - 5.20 M/cumm [facility] Comment:Testing performed by : [address] [address] MCV 78.7(L) 81.3 - 96.4 fL [facility] Comment:Testing performed by : [address] [address] MCH 23.5(L) 27.1 - 33.3 pg [facility] Comment:Testing performed by : [address] [address] MCHC 29.8(L) 32.3 - 35.7 g/dL [facility]INO Comment:Testing performed by : [address] [address] RDW CV 18.2(H) 11.1 - 14.9 % [facility] Comment:Testing performed by : [address] [address] RDW SD 51.8(H) 35.7 - 48.1 fL [facility] Comment:Testing performed by : [address] [address] NRBC abs 0.00 0.00 - 0.01 K/cumm [facility] Comment:Testing performed by : [address] [address] Blood 11/11/2024 3:51 AM CDT 11/11/2024 4:38 AM CDT Osiris Kumari MD LAB BLOOD ORDERABLES Fin al Result [facility] Department of Laboratories [place], [place] [id number] * (ABNORMAL) Comprehensive metabolic panel (11/11/2024 3:51 AM CDT) Pathologist [facility] Sodium 137 135 - 145 mmol/L Comment:Testing performed by : [address] [address] Potassium, pl 4.7 3.3 - 4.9 mmol/L [facility]INO Comment:Testing performed by : [address] [address] Chloride 102 97 - 110 mmol/L [facility] Comment:Testing performed by : [address] [address] CO2 27 22 - 32 mmol/L [facility] Comment:Testing performed by : [address] [address] Anion gap 8 2 - 15 mmol/L AV[facility]IL Comment:Testing performed by : [address] [address] BUN 13 6 - 25 mg/dL [facility] Comment:Testing performed by : [address] [address] Creatinine 1.15(H) 0.60 - 1.10 mg/dL [facility] Comment:Testing performed by : [address] [address] Glucose 118 70 - 199 mg/dL [facility] Comment: Interpretive Data Fasting glucose >/= 126 mg/dl is diagnostic for diabetes. Fasting is defined as no caloric intake for at least 8 hours. Fasting glucose between 100 mg/dl to 125 mg/dl is diagnostic of prediabetes. In a patient with classic symptoms of hyperglycemia or hyperglycemic crisis, a random glucose >/= 200 mg/dl is diagnostic for diabetes. In the absence of unequivocal hyperglycemia, results should be confirmed by repeat testing. The classification and Diagnosis of Diabetes Diabetes Care 202; 46: S19-S40. Current interpretive data was last revised 2022. Testing performed by: [address] [address] Calcium 8.7 8.5 - 10.3 mg/dL [facility] Comment:Testing performed by : [address] [address] Bilirubin, total 0.4 0.1 - 1.2 mg/dL [facility] Comment:Testing performed by : [address] [address] Protein, pl 7.0 6.5 - 8.5 g/dL [facility] Comment:Testing performed by : [address] [address] Albumin 3.3(L) 3.5 - 5.0 g/dL [facility] Comment:Testing performed by : [address] [address] Alk phos 128 40 - 130 Units/L [facility] Comment:Testing performed by : [address] [place] [address] ALT 47(H) 7 - 45 Units/L [facility] Comment:Testing performed by : [address] [address] AST 81(H) 10 - 45 Units/L [facility] Comment:Testing performed by : [address] [address] Blood 11/11/2024 3:51 AM CDT 11/11/2024 4:38 AM CDT Osiris Kumari MD LAB BLOOD ORDERABLES Fin al Result Performing Organization Address [facility] Co de Phone Number [address] [employer] [place] [address] * POCT glucose (11/10/2024 8:05 PM CDT) Glucose, POC 174 70 - 199 mg/dL Comment:Testing performed by : [address] [address] Blood 11/10/2024 8:05 PM CDT 11/10/2024 8:05 PM CDT Osiris Kumari MD LAB POCT ORDERABLES - DE VICE Final Result Performing Organization Address [facility] de Phone Number [address] [address] * POCT glucose (11/10/2024 5:37 PM CDT) Glucose, POC 134 70 - 199 mg/dL Comment:Testing performed by : [address] [address] Blood 11/10/2024 5:37 PM CDT 11/10/2024 5:37 PM CDT Osiris Kumari MD LAB POCT ORDERABLES - DE VICE Final Result Performing Organization Address [facility] Co de Phone Number AVRIL MH [address] [facility] Department [place] [address] * MRI Brain WO Contrast (11/10/2024 2:51 PM CDT) Anatomical Region Laterality Modality Head and Neck N/A Magnetic Resonan ce 11/10/2024 3:01 PM CDT Narrative 11/10/2024 3:24 PM CDT EXAM DESCRIPTION: MRI BRAIN WO CONTRAST REASON FOR STUDY: Neuro deficit, acute, stroke suspected Right side abdominal pain and nausea x 1 day. No known injury. Best obtained images due to patient motion. Surgical Hx: hysterectomy and cholecystectomy TECHNIQUE: Multiplanar imaging includes non-contrasted T1, T2, FLAIR, and diffusion with ADC map sequences. Additional sequence(s) sensitive to blood products. Images stored on PACS. COMPARISON: 11/10/2024. FINDINGS: Motion degraded exam. CEREBRUM: No hemorrhage, edema, or mass effect. WHITE MATTER: Mild periventricular white matter hypoattenuation is likely chronic microvascular ischemia in a patient of this age. POSTERIOR FOSSA: Brainstem and cerebellum appear unremarkable. DIFFUSION IMAGING: There is a very small focus of diffusion-weighted hyperintensity with equivocal mild ADC hypointensity and FLAIR signal hyperintensity in the right subinsular cortex. No significant FLAIR signal hyperintensity. EXTRAAXIAL SPACES: Adjacent to the inferior right frontal lobe there is an ovoid 2.2 x 1.3 by 1.6 cm area of FLAIR hypointense, T2 hyperintense and T1 hyperintense extra-axial signal, corresponding to the area of hypodensity on comparison CT BRAIN VOLUME: Within normal limits for age. PITUITARY: Partially empty configuration of the sella. VASCULATURE: There is some linear FLAIR signal hyperintensity in the distal right sylvian fissure (15 of series 6), which may correspond to the area of M2 segment occlusion. ORBITS: No masses. Globes normal. PARANASAL SINUSES AND MASTOIDS: Well-aerated with no fluid levels. No mucosa thickening. OTHER: No other significant finding. IMPRESSION: 1. No evidence of a large territory acute infarct. A small focus of diffusion-weighted hyperintensity in the right subinsular cortex with equivocal mild ADC hypointensity could represent a recent infarct in the appropriate clinical context. 2. Linear FLAIR signal hyperintensity in the distal right Sylvian fissure and right parietal sulci, which may correspond to the occluded M2 branch seen on CT angiography from today. 3. 2.2 cm area of masslike extra-axial signal abnormality in adjacent to the inferior right frontal lobe, corresponding to the area of hypodensity on comparison CT angiography. No MR evidence of recent infarct is seen in this location. Postcontrast sequences MRI are recommended for further assessment. I discussed the results with the ordering physician 3:13 p.m. on 11/10/2024. THIS IS AN ELECTRONICALLY VERIFIED FINAL REPORT 11/10/2024 3:24 PM - Electronically signed by Kj Mary M.D. MZ: ANA Report ID: [id number] Reading Location: [id number] Procedure Note Kj Mary MD - 11/10/2024 EXAM DESCRIPTION: MRI BRAIN WO CONTRAST REASON FOR STUDY: Neuro deficit, acute, stroke suspected Right side abdominal pain and nausea x 1 day. No known injury. Bestobtained images due to patient motion. Surgical Hx: hysterectomy andcholecystectomy TECHNIQUE: Multiplanar imaging includes non-contrasted T1, T2, FLAIR, and diffusion with ADC map sequences. Additional sequence(s) sensitive ITYZ. Images stored on PACS. COMPARISON: 11/10/2024. FINDINGS: Motion degraded exam. CEREBRUM: No hemorrhage, edema, or mass effect. WHITE MATTER: Mild periventricular white matter hypoattenuation islikely chronic microvascular ischemia in a patient of this age. POSTERIOR FOSSA: Brainstem and cerebellum appear unremarkable. DIFFUSION IMAGING: There is a very small focus of diffusion-weighted hyperintensity with equivocal mild ADC hypointensity and FLAIR signal hyperintensity in the right subinsular cortex. No significant FLAIRsignal hyperintensity. EXTRAAXIAL SPACES: Adjacent to the inferior right frontal lobe there isan ovoid 2.2 x 1.3 by 1.6 cm area of FLAIR hypointense, T2 hyperintense andT1 hyperintense extra-axial signal, corresponding to the area of hypodensityon comparison CT BRAIN VOLUME: Within normal limits for age. PITUITARY: Partially empty configuration of the sella. VASCULATURE: There is some linear FLAIR signal hyperintensity in thedistal right sylvian fissure (15 of series 6), which may correspond to the areaof M2 segment occlusion. ORBITS: No masses. Globes normal. PARANASAL SINUSES AND MASTOIDS: Well-aerated with no fluid levels. Nomucosa thickening. OTHER: No other significant finding. IMPRESSION: 1. No evidence of a large territory acute infarct. A small focus of diffusion-weighted hyperintensity in the right subinsular cortex with equivocal mild ADC hypointensity could represent a recent infarct in the appropriate clinical context. 2. Linear FLAIR signal hyperintensity in the distal right Sylvianfissure and right parietal sulci, which may correspond to the occluded M2 branchseen on CT angiography from today. 3. 2.2 cm area of masslike extra-axial signal abnormality in adjacent tothe inferior right frontal lobe, corresponding to the area of hypodensity on comparison CT angiography. No MR evidence of recent infarct is seen inthis location. Postcontrast sequences MRI are recommended for furtherassessment. I discussed the results with the ordering physician 3:13 p.m. on11/10/2024. THIS IS AN ELECTRONICALLY VERIFIED FINAL REPORT 11/10/2024 3:24 PM - Electronically signed by Kj Mary M.D. MZ: ANA Report ID: [id number] Reading Location: [place] [address] Pathedy Kumari MD [facility] MRI PROCEDURES Final Result * CTA Head Neck W WO Contrast (11/10/2024 1:57 PM CDT) Anatomical Region Laterality Modality Head and Neck N/A Computed Tomogra phy 11/10/2024 2:24 PM CDT Narrative 11/10/2024 2:59 PM CDT EXAM DESCRIPTION: CTA HEAD NECK W WO CONTRAST REASON FOR STUDY: Stroke/TIA, determine embolic source Pt seems lethergic. AMS Stroke/TIA, determine embolic source TECHNIQUE: Axial images were first obtained through the brain without contrast. Axial dynamic scanning technique with dynamic contrast enhancement through the intracranial and extracranial carotid and vertebral arteries. Multiplanar reconstruction. All stenosis measurements are based on NASCET criteria. 3D MIP images rendered on scanning unit and reviewed at time of interpretation. Automated exposure control was used as a dose optimization technique for this examination. CONTRAST TYPE/DOSE: 100mL of IOVERSOL 350 MG IODINE/ML INTRAVENOUS SYRINGE injected via intravenous COMPARISON: 11/10/2024 at 12:32 p.m.. FINDINGS: BRAIN CEREBRUM: There is mild generalized cerebral volume loss. There is a small area of hypodensity with mora-white matter differentiation loss in the inferior paramidline right frontal lobe, suspicious for recent (acute or subacute) infarct.. Periventricular white matter hypoattenuation is mild and likely chronic microvascular ischemia.. No suspicious vascular hyperdensity.. Cavernous athero sclerotic calcifications are present. No acute intracranial hemorrhage is seen. WHITE MATTER: Normal. POSTERIOR FOSSA: No masses. No hemorrhage. No evidence for acute infarction. EXTRA-AXIAL SPACES: No fluid collections. No masses. ORBITS: No significant abnormality. CALVARIUM: No fracture. SINUSES/MASTOIDS: Mild multifocal paranasal sinus mucosal thickening. Right mastoid effusion is present OTHER: Small amount of probable cerumen in the external auditory canals. Right mastoid effusion is present. Multilevel mild degenerative disc disease in the cervical spine and moderate degenerative disc disease in the visualized thoracic spine. No aggressive bone lesion or acute fracture is seen. INTRACRANIAL VESSELS [place]: There is occlusion of a right M2 inferior division branch (images 111 and 110 of series 7; this is best appreciated when reconstructed in the sagittal plane no evidence of aneurysm or focal stenosis. POSTERIOR CIRCULATION: Basilar artery is patent. No aneurysm is seen. The right V4 segment is patent. 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 Attention on follow-up MRI is recommended, which has already been ordered at the time of interpretation. BRAIN: No gross enhancing lesions as visualized. CAROTID CTA RIGHT CAROTIDS: No internal, external or common carotid stenosis. LEFT CAROTIDS: No internal, external or common carotid stenosis. LEFT VERTEBRAL: Patent. No significant stenosis. No dissection. RIGHT VERTEBRAL: Patent. No significant stenosis. No dissection. AORTIC ARCH: Mildly athero sclerotic normal three-vessel origin. Bilateral subclavian arteries are patent. No dissection. NECK SOFT TISSUE: No mass, adenopathy. No thyroid nodule greater than 1 cm. INCLUDED LUNGS: There is pleural-parenchymal scarring. Tree-in-bud nodules are redemonstrated, compatible with an infectious or inflammatory process. There is also associated mild bronchial wall thickening. 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 IMPRESSION: BRAIN: Small area of hypodensity with mora-white matter differentiation loss in the inferior right frontal lobe, suspicious for recent (acute or subacute) infarct. INTRACRANIAL CTA: 1. Occlusion of a right M2 inferior division branch. Recommend interventional neuroradiology consultation. 2. Nonvisualization of the left V4 segment beyond the origin of the left posterior cerebral artery. 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 Clinical correlation and attention on MRI are recommended. CAROTID CTA: No significant carotid stenosis. OTHER: Tree-in-bud nodules in the included lung apices, compatible with an infectious or inflammatory process. THIS IS AN ELECTRONICALLY VERIFIED FINAL REPORT 11/10/2024 2:59 PM - Electronically signed by Kj Mary M.D. MZ: ANA Report ID: [id number] Reading Location: [id number] Procedure Note Kj Mary MD - 11/10/2024 EXAM DESCRIPTION: CTA HEAD NECK W WO CONTRAST REASON FOR STUDY: Stroke/TIA, determine embolic source Pt seems lethergic. AMS Stroke/TIA, determine embolic source TECHNIQUE: Axial images were first obtained through the brain without contrast. Axial dynamic scanning technique with dynamic contrast enhancement throughthe intracranial and extracranial carotid and vertebral arteries. Multiplanar reconstruction. All stenosis measurements are based on NASCET criteria. 3D MIP images rendered on scanning unit and reviewed at time of interpretation. Automated exposure control was used as a dose optimization technique forthis examination. CONTRAST TYPE/DOSE: 100mL of IOVERSOL 350 MG IODINE/ML INTRAVENOUSSYRINGE injected via intravenous COMPARISON: 11/10/2024 at 12:32 p.m.. FINDINGS: BRAIN CEREBRUM: There is mild generalized cerebral volume loss. There is asmall area of hypodensity with mora-white matter differentiation loss in the inferior paramidline right frontal lobe, suspicious for recent (acute or subacute) infarct.. Periventricular white matter hypoattenuation is mildand likely chronic microvascular ischemia.. No suspicious vascularhyperdensity.. Cavernous athero sclerotic calcifications are present. No acuteintracranial hemorrhage is seen. WHITE MATTER: Normal. POSTERIOR FOSSA: No masses. No hemorrhage. No evidence for acuteinfarction. EXTRA-AXIAL SPACES: No fluid collections. No masses. ORBITS: No significant abnormality. CALVARIUM: No fracture. SINUSES/MASTOIDS: Mild multifocal paranasal sinus mucosal thickening.Right mastoid effusion is present OTHER: Small amount of probable cerumen in the external auditory canals. Right mastoid effusion is present. Multilevel mild degenerative discdisease in the cervical spine and moderate degenerative disc disease in thevisualized thoracic spine. No aggressive bone lesion or acute fracture is seen. INTRACRANIAL VESSELS [place] OF [place]: There is occlusion of a right M2 inferior divisionbranch (images 111 and 110 of series 7; this is best appreciated whenreconstructed in the sagittal plane no evidence of aneurysm or focal stenosis. POSTERIOR CIRCULATION: Basilar artery is patent. No aneurysm is seen.The right V4 segment is patent. 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 Attention on follow-up MRIis recommended, which has already been ordered at the time of interpretation. BRAIN: No gross enhancing lesions as visualized. CAROTID CTA RIGHT CAROTIDS: No internal, external or common carotid stenosis. LEFT CAROTIDS: No internal, external or common carotid stenosis. LEFT VERTEBRAL: Patent. No significant stenosis. No dissection. RIGHT VERTEBRAL: Patent. No significant stenosis. No dissection. AORTIC ARCH: Mildly athero sclerotic normal three-vessel origin.Bilateral subclavian arteries are patent. No dissection. NECK SOFT TISSUE: No mass, adenopathy. No thyroid nodule greater than 1cm. INCLUDED LUNGS: There is pleural-parenchymal scarring. [id number] are redemonstrated, compatible with an infectious or inflammatory process. There is also associated mild bronchial wall thickening. 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 IMPRESSION: BRAIN: Small area of hypodensity with mora-white matter differentiation loss inthe inferior right frontal lobe, suspicious for recent (acute or subacute) infarct. INTRACRANIAL CTA: 1. Occlusion of a right M2 inferior division branch. Recommend interventional neuroradiology consultation. 2. Nonvisualization of the left V4 segment beyond the origin of the left posterior cerebral artery. 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 Clinical correlation andattention on MRI are recommended. CAROTID CTA: No significant carotid stenosis. OTHER: Tree-in-bud nodules in the included lung apices, compatible with aninfectious or inflammatory process. THIS IS AN ELECTRONICALLY VERIFIED FINAL REPORT 11/10/2024 2:59 PM - Electronically signed by Kj Mary M.D. MZ: MZ Report ID: [id number] Reading Location: [place] [address] Pathedy Kumari MD IMG CT PROCEDURES Final Result * CT Stroke Head WO Contrast (11/10/2024 12:29 PM CDT) Anatomical Region Laterality Modality Head N/A Computed Tomogra phy 11/10/2024 12:3 2 PM CDT Narrative 11/10/2024 12:52 PM CDT EXAM DESCRIPTION: CT STROKE HEAD WO CONTRAST REASON FOR STUDY: Left sided weakness- Loss of consciousness droop- Seems to be recovering now TECHNIQUE: Axial images acquired through the brain without intravenous contrast. Images stored on PACS. Automated exposure control was used as a dose optimization technique for this examination. COMPARISON: None available FINDINGS: BRAIN: No hemorrhage, edema or mass effect. No recent infarct. Nonspecific periventricular and subcortical white matter hypoattenuation which can be seen as sequela of chronic small vessel ischemic disease. There is age-appropriate cerebral and cerebellar volume loss. No acute intraventricular hemorrhage. Basal cisterns are patent. No midline shift. EXTRA-AXIAL SPACES: No fluid collections. No masses. CALVARIUM: No fracture. SINUSES/MASTOIDS: Mucosal thickening of bilateral ethmoid air cells as well as right sphenoid sinus. Otherwise, no fluid or mucosal thickening. ORBITS: No significant abnormality. OTHER: No other significant abnormality. IMPRESSION: 1. No acute intracranial findings. Findings were telephoned by Dr. Cabrera to Dr. 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 THIS IS AN ELECTRONICALLY VERIFIED FINAL REPORT 11/10/2024 12:52 PM - Electronically signed by Rick Cabrera M.D. AT: AT Report ID: [id number] Reading Location: [id number] Procedure Note Rick Cabrera MD - 11/10/2024 EXAM DESCRIPTION: CT STROKE HEAD WO CONTRAST REASON FOR STUDY: Left sided weakness- Loss of consciousness droop- Seems to be recoveringnow TECHNIQUE: Axial images acquired through the brain without intravenous contrast. Images stored on PACS. Automated exposure control was used asa dose optimization technique for this examination. COMPARISON: None available FINDINGS: BRAIN: No hemorrhage, edema or mass effect. No recent infarct. Nonspecific periventricular and subcortical white matter hypoattenuationwhich can be seen as sequela of chronic small vessel ischemic disease. There is age-appropriate cerebral and cerebellar volume loss. No acute intraventricular hemorrhage. Basal cisterns are patent. No midlineshift. EXTRA-AXIAL SPACES: No fluid collections. No masses. CALVARIUM: No fracture. SINUSES/MASTOIDS: Mucosal thickening of bilateral ethmoid air cells aswell as right sphenoid sinus. Otherwise, no fluid or mucosal thickening. ORBITS: No significant abnormality. OTHER: No other significant abnormality. IMPRESSION: 1. No acute intracranial findings. Findings were telephoned by Dr. Cabrera to Dr. 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 THIS IS AN ELECTRONICALLY VERIFIED FINAL REPORT 11/10/2024 12:52 PM - Electronically signed by Rick Cabrera M.D. AT: AT Report ID: [id number] Reading Location: [id number] Osiris Kumari MD IMG CT PROCEDURES Final Result * POCT glucose (11/10/2024 11:57 AM CDT) Glucose, POC 132 70 - 199 mg/dL Comment:Testing performed by : [address] [id number] Blood 11/10/2024 11:5 7 AM CDT 11/10/2024 11:57 AM CDT Osiris Kumari MD LAB POCT ORDERABLES - DE VICE Final Result [facility] Department [place] [address] * (ABNORMAL) eGFR (11/10/2024 4:03 AM CDT) Pathologist [facility] eGFR 53(L) >=60 mL/min/1. 73 m2 Comment: Interpretive Data Reference Interval Normal >/= 90 mL/min/1.73m2 Mildly decreased* 60 - 89 mL/min/1.73m2 Mildly to moderately decreased 45 - 59 mL/min/1.73m2 Moderately to severely decreased 30 - 44 mL/min/1.73m2 Severely decreased 15 - 29 mL/min/1.73m2 Kidney Failure < 15 mL/min/1.73m2 *Relative to young adult level Estimated glomerular filtration rate is determined by the 2020 CKD-EPI equation recommended by the National Kidney [employer] (A Unifying Approach to GFR Estimation: Recommendations of the NKF-ASK Task Force on Reassessing the Inclusion of Race in Diagnosing Kidney Disease, JASN 2020). The CKD-EPI equation should not be used for patients with unstable renal function and has not been validated in children and those over 70. Current interpretive data was last reviewed 2021. Testing performed by: [address] [address] Blood 11/10/2024 4:03 AM CDT 11/10/2024 4:39 AM CDT Douglas Smith MD LAB BLOOD ORDERABLES Final Result [facility] [address] [facility] Department [place] [address] * (ABNORMAL) Differential, auto (11/10/2024 4:03 AM CDT) Neutrophil abs 7.69(H) 1.50 - 6.50 K/cumm Comment:Testing performed by : [address] [address] Imm gran abs 0.05 0.00 - 0.10 K/cumm [facility] Comment:Testing performed by : [address] [address] Lymphocyte abs 1.85 0.80 - 3.30 K/cumm [facility] Comment:Testing performed by : [address] [address] Monocyte abs 1.08(H) 0.20 - 0.80 K/cumm [facility] Comment:Testing performed by : [address] [address] Eosinophil abs 0.06 0.00 - 0.50 K/cumm [facility] Comment:Testing performed by : [address] [address] Basophil abs 0.04 0.00 - 0.10 K/cumm [facility] Comment:Testing performed by : [address] [address] Neutrophil pct 71.3 % [facility] Comment: Interpretive Data Percent cell count reference ranges are not reported, since discordance with absolute values may lead to misinterpretation of CBC data. Current Interpretive Data was last revised on 2017. Testing performed by: [address] [address] Imm gran pct 0.5 % [facility] Comment: Interpretive Data Percent cell count reference ranges are not reported, since discordance with absolute values may lead to misinterpretation of CBC data. Current Interpretive Data was last revised on 2017. Testing performed by: [address] [address] Lymphocyte pct 17.2 % [facility] Comment: Interpretive Data Percent cell count reference ranges are not reported, since discordance with absolute values may lead to misinterpretation of CBC data. Current Interpretive Data was last revised on 2017. Testing performed by: [address] [address] Monocyte pct 10.0 % [facility] Comment: Interpretive Data Percent cell count reference ranges are not reported, since discordance with absolute values may lead to misinterpretation of CBC data. Current Interpretive Data was last revised on 2017. Testing performed by: [address] [address] Eosinophil pct 0.6 % [facility] Comment: Interpretive Data Percent cell count reference ranges are not reported, since discordance with absolute values may lead to misinterpretation of CBC data. Current Interpretive Data was last revised on 2017. Testing performed by: [address] [address] Basophil pct 0.4 % [facility] Comment: Interpretive Data Percent cell count reference ranges are not reported, since discordance with absolute values may lead to misinterpretation of CBC data. Current Interpretive Data was last revised on 2017. Testing performed by: [address] [address] Blood 11/10/2024 4:03 AM CDT 11/10/2024 4:40 AM CDT Douglas Smith MD LAB BLOOD ORDERABLES Final Result [facility] [address] [facility] Department [place] [address] * Thyroid Function [place] (11/10/2024 4:03 AM CDT) TSH 3.45 0.30 - 4.20 mcIUnit/mL Comment:Testing performed by : [address] [address] Blood 11/10/2024 4:03 AM CDT 11/10/2024 4:39 AM CDT Douglas Smith MD LAB BLOOD ORDERABLES Final Result [facility] [address] [facility] Department [place] [address] * (ABNORMAL) CBC with auto differential (11/10/2024 4:03 AM CDT) WBC 10.77(H) 3.80 - 9.90 K/cumm Comment:Testing performed by : [address] [address] Hgb 9.1(L) 11.9 - 15.5 g/dL [facility] Comment:Testing performed by : [address] [address] Hct 30.8(L) 35.6 - 45.5 % [facility] Comment:Testing performed by : [address] [address] Plt 281 150 - 400 K/cumm [facility] Comment:Testing performed by : [address] [address] MPV 9.6 9.1 - 12.3 fL [facility] Comment:Testing performed by : [address] [address] RBC 3.93 3.90 - 5.20 M/cumm [facility] Comment:Testing performed by : [address] [address] MCV 78.4(L) 81.3 - 96.4 fL [facility] Comment:Testing performed by : [address] [address] MCH 23.2(L) 27.1 - 33.3 pg [facility] Comment:Testing performed by : [address] [address] MCHC 29.5(L) 32.3 - 35.7 g/dL [facility] Comment:Testing performed by : [address] [address] RDW CV 17.8(H) 11.1 - 14.9 % [facility] Comment:Testing performed by : [address] [address] RDW SD 50.5(H) 35.7 - 48.1 fL [facility] Comment:Testing performed by : [address] [address] NRBC abs 0.00 0.00 - 0.01 K/cumm [facility] Comment:Testing performed by : [address] [address] Blood 11/10/2024 4:03 AM CDT 11/10/2024 4:40 AM CDT Douglas Smith MD LAB BLOOD ORDERABLES Final Result Performing Organization Address City/[facility] Co de Phone Number [facility] [address] Department [place] [address] * (ABNORMAL) Hemoglobin A1c (11/10/2024 4:03 AM CDT) [facility] Hgb A1C 6.0(H) 4.0 - 5.6 % Comment:Testing performed by : [address] [address] Estimated Average Glucose 126 mg/dL [facility] Comment: The ADA recommends reporting an estimated Average Glucose (eAG) with all Hemoglobin A1c results using the equation derived from a study of 507 normal and diabetic adults. Minority populations were underrepresented and children were not included. (Diabetes Care 31:3310-8208, 2008). The eAG is not equivalent to a fasting glucose. Testing performed by: [address] [address] Blood 11/10/2024 4:03 AM CDT 11/10/2024 4:40 AM CDT Douglas Smith MD LAB BLOOD ORDERABLES Final Result Performing Organization Address City/[facility] Co de Phone Number [facility] [address] [facility] Department [place] [address] * (ABNORMAL) Comprehensive metabolic panel (11/10/2024 4:03 AM CDT) Sodium 139 135 - 145 mmol/L Comment:Testing performed by : [address] [address] Potassium, pl 3.7 3.3 - 4.9 mmol/L [facility] Comment:Testing performed by : [address] [address] Chloride 102 97 - 110 mmol/L [facility] Comment:Testing performed by : [address] [address] CO2 28 22 - 32 mmol/L [facility] Comment:Testing performed by : [address] [address] Anion gap 9 2 - 15 mmol/L [facility] Comment:Testing performed by : [address] [address] BUN 16 6 - 25 mg/dL [facility] Comment:Testing performed by : [address] [address] Creatinine 1.06 0.60 - 1.10 mg/dL [facility] Comment:Testing performed by : [address] [address] Glucose 112 70 - 199 mg/dL [facility] Comment: Interpretive Data Fasting glucose >/= 126 mg/dl is diagnostic for diabetes. Fasting is defined as no caloric intake for at least 8 hours. Fasting glucose between 100 mg/dl to 125 mg/dl is diagnostic of prediabetes. In a patient with classic symptoms of hyperglycemia or hyperglycemic crisis, a random glucose >/= 200 mg/dl is diagnostic for diabetes. In the absence of unequivocal hyperglycemia, results should be confirmed by repeat testing. The classification and Diagnosis of Diabetes Diabetes Care 2021; 46: S19-S40. Current interpretive data was last revised 2022. Testing performed by: [address] [address] Calcium 9.0 8.5 - 10.3 mg/dL [facility] Comment:Testing performed by : [address] [address] Bilirubin, total 0.5 0.1 - 1.2 mg/dL [facility] Comment:Testing performed by : [address] [address] Protein, pl 7.3 6.5 - 8.5 g/dL [facility] Comment:Testing performed by : [address] [address] Albumin 3.5 3.5 - 5.0 g/dL [facility] Comment:Testing performed by : [address] [address] Alk phos 157(H) 40 - 130 Units/L [facility] Comment:Testing performed by : [address] [address] ALT 66(H) 7 - 45 Units/L [facility] Comment:Testing performed by : [address] [address] AST 147(H) 10 - 45 Units/L [facility] Comment:Testing performed by : [address] [address] Blood 11/10/2024 4:03 AM CDT 11/10/2024 4:39 AM CDT Douglas Smith MD LAB BLOOD ORDERABLES Final Result Performing Organization Address City/State/[facility] Phone Number [facility] [address] [facility] Department of Laboratories [place], [place] [id number] * CT Chest WO Contrast (11/09/2024 8:19 PM CDT) Anatomical Region Laterality Modality Body N/A Computed Tomogra phy 11/09/2024 11:0 8 PM CDT Narrative 11/09/2024 11:17 PM CDT EXAM DESCRIPTION: CT CHEST WO CONTRAST REASON FOR STUDY: Diffuse/interstitial lung disease, Respiratory illness, nondiagnostic xray Diffuse/interstitial lung disease; Respiratory illness, nondiagnostic xray Pneumonia of right lung due to infectious organism, unspecified part of lung Pt reports today at approx 0400 she started having R side pain. Pointing to R side of abdomen. Then she started feeling like she might have a fever, and started getting N/V. TECHNIQUE: CT scan of the chest performed without intravenous contrast using helical scanning technique. Reconstructed coronal and sagittal MPR images reviewed. All images stored on PACS. Automated mA/kV exposure control was utilized as a dose optimization technique for this examination, performed in strict accordance with principles of ALARA. COMPARISON: Relevant images from CT of the abdomen and pelvis of November 09, 2024. REFERENCE: Per ACR white paper recommendations, unless otherwise specified no follow-up imaging is recommended for incidental renal and adrenal lesions per consensus recommendations based on imaging criteria. Further lab evaluation could be pursued based on clinical findings. FINDINGS: The sensitivity for detection of solid visceral lesions is diminished without the use of intravenous contrast. NECK BASE: Unremarkable on this non-contrast CT. HARDWARE/LINES/TUBES: None. LYMPH NODES: No axillary or hilar lymphadenopathy is seen by CT size criteria on this non-contrast CT. There are borderline and mildly enlarged paratracheal and subcarinal lymph nodes seen measuring up to 13 mm in short axis. There are calcified nodes. MEDIASTINUM/JOSH: No masses seen. There is mild atherosclerosis of the aorta. There is severe coronary artery calcification. Heart is enlarged. There is no significant pericardial effusion. PLEURA: No effusion. No pneumothorax. LUNGS: There is biapical pleural-parenchymal scarring. There are scattered reticulonodular infiltrates and tree-in-bud opacities present through out the lungs bilaterally. There is near-complete atelectasis of the right middle lobe with extensive bronchiectasis. The central airways are normal. MUSCULOSKELETAL: There is moderate diffuse degenerative change of the thoracic spine. There is no acute abnormality. CHEST WALL/BREAST: Unremarkable. UPPER ABDOMEN: Area of abnormal attenuation is again seen in the superior pole of the right kidney. The remaining visualized upper abdominal structures are unremarkable. OTHER: No other significant abnormality. IMPRESSION: 1. Scattered reticulonodular infiltrates and tree-in-bud opacities throughout the lungs bilaterally, consistent with infectious or inflammatory bronchiolitis. 2. Near complete atelectasis of the right middle lobe with bronchiectasis. 3. Borderline and mildly enlarged mediastinal lymph nodes, likely reactive. 4. Cardiomegaly and severe coronary artery calcification. 5. Moderate diffuse degenerative change of the thoracic spine. 6. Persistent abnormal appearance of the superior pole of the right kidney, unchanged from study earlier on the same date. Differential diagnosis includes renal infarct or pyelonephritis. Recommend clinical correlation. THIS IS AN ELECTRONICALLY VERIFIED FINAL REPORT 11/09/2024 11:17 PM - Electronically signed by Umza Enrique M.D. SN: Report ID: [id number] Reading Location: [id number] Procedure Note Uzma Enrique MD - 11/09/2024 EXAM DESCRIPTION: CT CHEST WO CONTRAST REASON FOR STUDY: Diffuse/interstitial lung disease, Respiratoryillness, nondiagnostic xray Diffuse/interstitial lung disease; Respiratory illness, nondiagnostic xray Pneumonia of right lung due to infectious organism, unspecified part oflung Pt reports today at approx 0400 she started having R side pain.Pointing to R side of abdomen. Then she started feeling like she might have afever, and started getting N/V. TECHNIQUE: CT scan of the chest performed without intravenous contrastusing helical scanning technique. Reconstructed coronal and sagittal MPR images reviewed. All images stored on PACS. Automated mA/kV exposure controlwas utilized as a dose optimization technique for this examination, performedin strict accordance with principles of ALARA. COMPARISON: Relevant images from CT of the abdomen and pelvis of 2024. REFERENCE: Per ACR white paper recommendations, unless otherwise specifiedno follow-up imaging is recommended for incidental renal and adrenal lesionsper consensus recommendations based on imaging criteria. Further labevaluation could be pursued based on clinical findings. FINDINGS: The sensitivity for detection of solid visceral lesions is diminished without the use of intravenous contrast. NECK BASE: Unremarkable on this non-contrast CT. HARDWARE/LINES/TUBES: None. LYMPH NODES: No axillary or hilar lymphadenopathy is seen by CT sizecriteria on this non-contrast CT. There are borderline and mildly enlarged paratracheal and subcarinal lymph nodes seen measuring up to 13 mm inshort axis. There are calcified nodes. MEDIASTINUM/JOSH: No masses seen. There is mild atherosclerosis of the aorta. There is severe coronary artery calcification. Heart isenlarged. There is no significant pericardial effusion. PLEURA: No effusion. No pneumothorax. LUNGS: There is biapical pleural-parenchymal scarring. There arescattered reticulonodular infiltrates and tree-in-bud opacities present through outthe lungs bilaterally. There is near-complete atelectasis of the right middle lobe with extensive bronchiectasis. The central airways are normal. MUSCULOSKELETAL: There is moderate diffuse degenerative change of the thoracic spine. There is no acute abnormality. CHEST WALL/BREAST: Unremarkable. UPPER ABDOMEN: Area of abnormal attenuation is again seen in the superior pole of the right kidney. The remaining visualized upper abdominal structures are unremarkable. OTHER: No other significant abnormality. IMPRESSION: 1. Scattered reticulonodular infiltrates and tree-in-bud opacities throughout the lungs bilaterally, consistent with infectious orinflammatory bronchiolitis. 2. Near complete atelectasis of the right middle lobe withbronchiectasis. 3. Borderline and mildly enlarged mediastinal lymph nodes, likelyreactive. 4. Cardiomegaly and severe coronary artery calcification. 5. Moderate diffuse degenerative change of the thoracic spine. 6. Persistent abnormal appearance of the superior pole of the rightkidney, unchanged from study earlier on the same date. Differential diagnosis includes renal infarct or pyelonephritis. Recommend clinicalcorrelation. THIS IS AN ELECTRONICALLY VERIFIED FINAL REPORT 11/09/2024 11:17 PM - Electronically signed by Uzma Enrique M.D. SN: Report ID: [id number] Reading Location: [id number] Douglas Smith MD IMG CT PROCEDURES Fi nal Result * Sepsis Lactate w/ Reflex (11/09/2024 7:49 PM CDT) Sepsis Lactate 1.5 0.7 - 2.0 mmol/L Comment:Testing performed by : [facility], [address] [place] [address], [place]., [address] Blood 11/09/2024 7:49 PM CDT 11/09/2024 7:53 PM CDT us Simeon Morrow MD LAB BLOOD ORDERABLES Final Re sult Performing Organization Address City/[facility]/ZIP Co de Phone Number [facility] [address] [facility] [employer] [place] [address] * Blood culture Blood (11/09/2024 7:49 PM CDT) Report Final Report: No growth Comment:Testing performed by : [facility], [address] [place]., [address] Blood 11/09/2024 7:49 PM CDT 11/10/2024 1:23 AM CDT Narrative [facility] 11/14/2024 7:00 AM CDT Collection->Peripheral 1. Blood cultures are incubated for 4 days on a continuously monitored blood culture system. The first report of a negative culture is issued within 24 hours of receipt of the specimen in the laboratory. 2. Positive culture results are reported as soon as they are detected. 3. The most important factor for detection of microbes in the setting of bloodstream infection is the volume of blood submitted for culture. Failure to collect an optimal blood volume can result in false negative blood cultures. 4. For pediatric patients, the recommended blood volume to collect follows a weight based strategy. See the electronic test catalog for collection instructions. 5. For positive blood cultures, a rapid molecular test may be performed for organism identification using the eliana ePlex blood culture identification panel for gram positive (BCID-GP) and gram negative (BCID-GN) organisms. This nucleic acid amplification test detects microbial DNA in positive blood culture broth. This assay has been cleared by the [place] Food and Drug Administration and its performance characteristics have been verified by the [facility] Microbiology Laboratory. For questions about this culture, contact the Microbiology Laboratory at [phone]. Interpretive data was last revised on 24. Simeon Morrow MD LAB MICROBIOLOGY - GENERAL OR DERABLES Final Result Performing Organization Address City/[facility]/ZIP Co de Phone Number [facility] [address] [facility] [place] [address] * Blood culture Blood (11/09/2024 7:49 PM CDT) Report Final Report: No growth Comment:Testing performed by : [facility], [address] [place]., [address] Blood 11/09/2024 7:49 PM CDT 11/10/2024 1:23 AM CDT Narrative [facility] - 11/14/2024 7:00 AM CDT Collection->Peripheral 1. Blood cultures are incubated for 4 days on a continuously monitored blood culture system. The first report of a negative culture is issued within 24 hours of receipt of the specimen in the laboratory. 2. Positive culture results are reported as soon as they are detected. 3. The most important factor for detection of microbes in the setting of bloodstream infection is the volume of blood submitted for culture. Failure to collect an optimal blood volume can result in false negative blood cultures. 4. For pediatric patients, the recommended blood volume to collect follows a weight based strategy. See the electronic test catalog for collection instructions. 5. For positive blood cultures, a rapid molecular test may be performed for organism identification using the eliana ePlex blood culture identification panel for gram positive (BCID-GP) and gram negative (BCID-GN) organisms. This nucleic acid amplification test detects microbial DNA in positive blood culture broth. This assay has been cleared by the [place] Food and Drug Administration and its performance characteristics have been verified by the [facility] Microbiology Laboratory. For questions about this culture, contact the Microbiology Laboratory at [phone]. Interpretive data was last revised on 24. Simeon Morrow MD LAB MICROBIOLOGY - GENERAL OR DERABLES Final Result [facility] [address] [facility] Department [place] [address] * Potassium (11/09/2024 4:34 PM CDT) Potassium, pl 4.8 3.3 - 4.9 mmol/L Comment: Hemolyzed; Potassium value may be falsely elevated by as much as 1.0 mmol/L. Suggest redraw and reanalysis. Testing performed by: [facility], [address] [place] [address], [place]., [address] Blood 11/09/2024 4:34 PM CDT 11/09/2024 4:35 PM CDT us Simeon Morrow MD LAB BLOOD ORDERABLES Final Re sult [facility] [address] [facility] Department [place] [address] * CT Abdomen Pelvis W Contrast (11/09/2024 4:23 PM CDT) Anatomical Region Laterality Modality Body N/A Computed Tomogra phy 11/09/2024 4:27 PM CDT Narrative 11/09/2024 4:37 PM CDT EXAM DESCRIPTION: CT ABDOMEN PELVIS W CONTRAST REASON FOR STUDY: RLQ abdominal pain Pt reports today at approx 0400 she started having R side pain. Pointing to R side of abdomen. Then she started feeling like she might have a fever, and started getting N/V. TECHNIQUE: CT scan of the abdomen and pelvis performed with intravenous and without oral contrast using helical scanning technique with dynamic intravenous contrast injection. Reconstructed coronal and sagittal MPR images reviewed. All images stored on PACS. Automated exposure control was used as a dose optimization technique for this examination. CONTRAST TYPE/DOSE: 100mL of IOVERSOL 350 MG IODINE/ML INTRAVENOUS SYRINGE injected COMPARISON: None available FINDINGS: LOWER CHEST: Multifocal tree-in-bud nodularity in the right lower lobe and to lesser extent right middle lobe are present which could reflect infectious/inflammatory bronchiolitis, aspiration pneumonitis, or bronchopneumonia. Scattered regions of pulmonary parenchymal scarring and mild subsegmental atelectasis in the imaged portions of the lungs are present. There is mild focal bronchiolectasis and bronchiectasis in the right middle lobe. No pleural effusion. There is mild cardiomegaly. Imaged esophagus is within normal limits LIVER: Normal size. No identified cystic or solid masses. The portal veins are patent. GALLBLADDER: Prior cholecystectomy. BILE DUCTS: Mild intrahepatic biliary ductal dilatation as well as mild proximal common bile duct dilatation with tapering of the common bile duct to the level of the papilla most likely due to prior cholecystectomy and reservoir effect. SPLEEN: Normal size. No focal lesions. Calcified splenic granulomas. PANCREAS: No identified cystic or solid masses. No significant calcifications. No adjacent inflammation or peripancreatic fluid collections. Pancreatic duct not dilated. ADRENALS: Normal. KIDNEYS/URINARY TRACT: Geographic region of right renal parenchymal hypoattenuation involving portions of the upper pole and interpolar region and involving up to approximately 1/3 of the right renal parenchyma which could reflect an age-indeterminate renal infarct. Subcentimeter hypoattenuating lesion in the lower pole of the right kidney is too small to characterize. Heterogeneous enhancement in the upper pole of the left kidney likely due to parenchymal scarring with associated volume loss.. No visualized stones. No hydronephrosis or hydroureter.. Urinary bladder is unremarkable. GI: The stomach is normal. The small bowel and colon are normal in course and caliber with no evidence of obstruction or inflammation. The appendix is normal. PERITONEUM: No ascites or free air. No lymphadenopathy. RETROPERITONEUM: No mass or adenopathy. REPRODUCTIVE: Prior hysterectomy. No adnexal masses. VASCULATURE: No abdominal aortic aneurysm. The abdominal aorta and its branches are patent including right renal artery. No right renal vein is patent. MUSCULOSKELETAL: No acute fractures or aggressive osseous lesions. IMPRESSION: 1. Geographic region of right renal parenchymal hypoattenuation involving portions of the upper pole and interpolar region and involving up to approximately 1/3 of the right renal parenchyma which could reflect an age-indeterminate renal infarct. Right renal artery and vein are patent. Superimposed early pyelonephritis remains a possibility. Correlation with urinalysis is suggested. 2. Multifocal tree-in-bud nodularity in the right lower lobe and to lesser extent right middle lobe which could reflect infectious/inflammatory bronchiolitis, aspiration pneumonitis, or bronchopneumonia. THIS IS AN ELECTRONICALLY VERIFIED FINAL REPORT 11/09/2024 4:37 PM - Electronically signed by Rick Cabrera M.D. AT: AT Report ID: [id number] Reading Location: [place] [address] Procedure Note Rick Cabrera MD - 11/09/2024 EXAM DESCRIPTION: CT ABDOMEN PELVIS W CONTRAST REASON FOR STUDY: RLQ abdominal pain Pt reports today at approx 0400 she started having R side pain. Pointingto R side of abdomen. Then she started feeling like she might have a fever,and started getting N/V. TECHNIQUE: CT scan of the abdomen and pelvis performed with intravenousand without oral contrast using helical scanning technique with dynamic intravenous contrast injection. Reconstructed coronal and sagittal MPRimages reviewed. All images stored on PACS. Automated exposure control was usedas a dose optimization technique for this examination. CONTRAST TYPE/DOSE: 100mL of IOVERSOL 350 MG IODINE/ML INTRAVENOUSSYRINGE injected COMPARISON: None available FINDINGS: LOWER CHEST: Multifocal tree-in-bud nodularity in the rightlower lobe and to lesser extent right middle lobe are present which couldreflect infectious/inflammatory bronchiolitis, aspiration pneumonitis, or bronchopneumonia. Scattered regions of pulmonary parenchymal scarring and mild subsegmental atelectasis in the imaged portions of the lungs arepresent. There is mild focal bronchiolectasis and bronchiectasis in the rightmiddle lobe. No pleural effusion. There is mild cardiomegaly. Imaged esophagusis within normal limits LIVER: Normal size. No identified cystic or solid masses. The portal veins are patent. GALLBLADDER: Prior cholecystectomy. BILE DUCTS: Mild intrahepatic biliary ductal dilatation as well as mild proximal common bile duct dilatation with tapering of the common bile ductto the level of the papilla most likely due to prior cholecystectomy and reservoir effect. SPLEEN: Normal size. No focal lesions. Calcified splenic granulomas. PANCREAS: No identified cystic or solid masses. No significant calcifications. No adjacent inflammation or peripancreatic fluidcollections. Pancreatic duct not dilated. ADRENALS: Normal. KIDNEYS/URINARY TRACT: Geographic region of right renal parenchymal hypoattenuation involving portions of the upper pole and interpolar regionand involving up to approximately 1/3 of the right renal parenchyma whichcould reflect an age-indeterminate renal infarct. Subcentimeter hypoattenuating lesion in the lower pole of the right kidney is too small to characterize. Heterogeneous enhancement in the upper pole of the left kidney likely dueto parenchymal scarring with associated volume loss.. No visualized stones.No hydronephrosis or hydroureter.. Urinary bladder is unremarkable. GI: The stomach is normal. The small bowel and colon are normal incourse and caliber with no evidence of obstruction or inflammation. The appendixis normal. PERITONEUM: No ascites or free air. No lymphadenopathy. RETROPERITONEUM: No mass or adenopathy. REPRODUCTIVE: Prior hysterectomy. No adnexal masses. VASCULATURE: No abdominal aortic aneurysm. The abdominal aorta and its branches are patent including right renal artery. No right renal vein is patent. MUSCULOSKELETAL: No acute fractures or aggressive osseous lesions. IMPRESSION: 1. Geographic region of right renal parenchymalhypoattenuation involving portions of the upper pole and interpolar region and involvingup to approximately 1/3 of the right renal parenchyma which could reflect an age-indeterminate renal infarct. Right renal artery and vein are patent. Superimposed early pyelonephritis remains a possibility. Correlation with urinalysis is suggested. 2. Multifocal tree-in-bud nodularity in the right lower lobe and to lesser extent right middle lobe which could reflect infectious/inflammatory bronchiolitis, aspiration pneumonitis, or bronchopneumonia. THIS IS AN ELECTRONICALLY VERIFIED FINAL REPORT 11/09/2024 4:37 PM - Electronically signed by Rick Cabrera M.D. AT: AT Report ID: [id number] Reading Location: [id number] us Simeon Morrow MD IMG CT PROCEDURES Final Resul t * ECG 12 lead (11/09/2024 3:49 PM CDT) Ventricular Rate EKG/Min 71 BPM [facility] Atrial Rate 375 BPM [facility] QRS-Interval (MSEC) 98 ms [facility] QT-Interval (MSEC) 402 ms [facility] QTc 436 ms [facility] R [place] -51 degrees [facility] T [place] 7 degrees [facility] Diagnosis Atrial fibrillation Left axis deviation Low voltage QRS Septal infarct , age undetermined Possible Lateral infarct , age undetermined Abnormal ECG When compared with ECG of 10-SEP-2001 13:15, Atrial fibrillation has replaced Sinus rhythm QRS duration has increased Septal infarct is now Present Borderline criteria for Lateral infarct are now Present Confirmed by PRDAEEP MCCAIN M.D. ([id number]) on 11/11/2024 10:20:36 PM [facility] 11/09/2024 3:49 PM CDT 11/11/2024 10:20 PM CDT us Simeon Morrow MD ECG ORDERABLES Final Result [facility] * (ABNORMAL) Urinalysis reflex to microscopic and culture Urine (11/09/2024 2:37 PM CDT) Color, ur Yellow Yellow Comment:Testing performed by : [address] [address] Clarity, ur Clear Clear [facility] Comment:Testing performed by : [address] [address] Specific gravity, ur 1.023 1.003 - 1.030 [facility] Comment:Testing performed by : [address] [address] pH, urine 7.0 [facility] Comment: Interpretive Data U rine pH is affected by diet, medications, systemic acid-base disturbances, and renal tubular function. pH may affect urinary stone formation. For example, urine pH below 6.0 may help reduce the tendency for calcium phosphate stones and pH greater than 6.0 may reduce the tendency for uric acid stone formation. Source: [place] [employer] Current Interpretive Data was last revised on 2017 Testing performed by: [address] [address] Protein, ur ql Trace(A) Negative [facility] Comment:Testing performed by : [address] [address] Glucose, ur ql Negative Negative [facility] Comment:Testing performed by : [address] [address] Ketones, ur Negative Negative [facility] Comment:Testing performed by : [address] [address] Bilirubin, ur Negative Negative [facility] Comment:Testing performed by : [address] [address] Blood, ur Negative Negative [facility] Comment:Testing performed by : [address] [address] Urobilinogen, ur 2.0(A) <2.0 mg/dL [facility] Comment:Testing performed by : [address] [address] Nitrite, ur Negative Negative [facility] Comment:Testing performed by : [address] [address] Leukocyte esterase, ur 1+(A) Negative [facility] Comment:Testing performed by : [address] [address] UA reflex comment Reflex to microscopic UA will be performed. [facility] Comment:Testing performed by : [address], [place]., [address] Urine 11/09/2024 2:37 PM CDT 11/09/2024 2:41 PM CDT us Simeon Morrow MD LAB MICROBIOLOGY - GENERAL OR DERABLES Final Result Performing Organization Address City/State/[facility] Co de Phone Number [facility] Department [place] [address] * (ABNORMAL) Urinalysis, microscopic only (11/09/2024 2:37 PM CDT) WBC, ur 0-5 0 - 5 /HPF Comment:Testing performed by : [address] [address] RBC, ur 3-5(A) 0 - 2 /HPF [facility] Comment:Testing performed by : [address] [address] Epithelial cells, squamous, ur >50(A) 0 - 5 /HPF [facility] Comment:Testing performed by : [address] [address] Bacteria, ur Trace(A) [facility] Comment:Testing performed by : [address] [address] Mucous, ur Present(A) [facility] [place] Comment:Testing performed by : [address] [address] Culture Reflex Comment Reflex conditions for urine culture (WBC >10) not met. [facility] Comment:Testing performed by : [facility], [address] [place] [address]., [address] Urine 11/09/2024 2:37 PM CDT 11/09/2024 2:41 PM CDT Simeon Morrow MD LAB URINE ORDERABLES Final Re sult Performing Organization Address [facility] Co de Phone Number [facility] [address] [facility] [place] [address] * (ABNORMAL) eGFR (11/09/2024 2:03 PM CDT) eGFR 57(L) >=60 mL/min/1. 73 m2 Comment: Interpretive Data Reference Interval Normal >/= 90 mL/min/1.73m2 Mildly decreased* 60 - 89 mL/min/1.73m2 Mildly to moderately decreased 45 - 59 mL/min/1.73m2 Moderately to severely decreased 30 - 44 mL/min/1.73m2 Severely decreased 15 - 29 mL/min/1.73m2 Kidney Failure < 15 mL/min/1.73m2 *Relative to young adult level Estimated glomerular filtration rate is determined by the 2020 CKD-EPI equation recommended by the National Kidney Foundation (A Unifying Approach to GFR Estimation: Recommendations of the NKF-ASK Task Force on Reassessing the Inclusion of Race in Diagnosing Kidney Disease, JASN 2020). The CKD-EPI equation should not be used for patients with unstable renal function and has not been validated in children and those over 70. Current interpretive data was last reviewed 2021. Testing performed by: [facility], [address] [place] [address]., [address] Blood 11/09/2024 2:03 PM CDT 11/09/2024 2:06 PM CDT Simeon Morrow MD LAB BLOOD ORDERABLES Final Re sult Performing Organization Address City/[facility]/ZIP Co de Phone Number [facility] [place] [address] * (ABNORMAL) Differential, auto (11/09/2024 2:03 PM CDT) Neutrophil abs 8.56(H) 1.50 - 6.50 K/cumm Comment:Testing performed by : [address] [address] Imm gran abs 0.06 0.00 - 0.10 K/cumm [facility] Comment:Testing performed by : [address] [address] Lymphocyte abs 1.82 0.80 - 3.30 K/cumm [facility] Comment:Testing performed by : [address] [address] Monocyte abs 0.59 0.20 - 0.80 K/cumm [facility] Comment:Testing performed by : [address] [address] Eosinophil abs 0.06 0.00 - 0.50 K/cumm [facility] Comment:Testing performed by : [address] [address] Basophil abs 0.05 0.00 - 0.10 K/cumm [facility] Comment:Testing performed by : [address] [address] Neutrophil pct 77.0 % [facility] Comment: Interpretive Data Percent cell count reference ranges are not reported, since discordance with absolute values may lead to misinterpretation of CBC data. Current Interpretive Data was last revised on 2017. Testing performed by: [address] [address] Imm gran pct 0.5 % [facility] Comment: Interpretive Data Percent cell count reference ranges are not reported, since discordance with absolute values may lead to misinterpretation of CBC data. Current Interpretive Data was last revised on 2017. Testing performed by: [address] [address] Lymphocyte pct 16.3 % [facility] Comment: Interpretive Data Percent cell count reference ranges are not reported, since discordance with absolute values may lead to misinterpretation of CBC data. Current Interpretive Data was last revised on 2017. Testing performed by: [address] [address] Monocyte pct 5.3 % [facility] Comment: Interpretive Data Percent cell count reference ranges are not reported, since discordance with absolute values may lead to misinterpretation of CBC data. Current Interpretive Data was last revised on 2017. Testing performed by: [address] [address] Eosinophil pct 0.5 % [facility] Comment: Interpretive Data Percent cell count reference ranges are not reported, since discordance with absolute values may lead to misinterpretation of CBC data. Current Interpretive Data was last revised on 2017. Testing performed by: [address] [address] Basophil pct 0.4 % [facility] Comment: Interpretive Data Percent cell count reference ranges are not reported, since discordance with absolute values may lead to misinterpretation of CBC data. Current Interpretive Data was last revised on 2017. Testing performed by: [address] [address] Blood 11/09/2024 2:03 PM CDT 11/09/2024 2:06 PM CDT us Simeon Morrow MD LAB BLOOD ORDERABLES Final Re sult [facility] [address] [facility] Department [place] [address] * (ABNORMAL) CBC with auto differential (11/09/2024 2:03 PM CDT) WBC 11.14(H) 3.80 - 9.90 K/cumm Comment:Testing performed by : [address] [address] Hgb 9.8(L) 11.9 - 15.5 g/dL [facility] Comment:Testing performed by : [address] [address] Hct 32.4(L) 35.6 - 45.5 % [facility] Comment:Testing performed by : [address] [address] Plt 288 150 - 400 K/cumm [facility] Comment:Testing performed by : [address] [address] MPV 9.5 9.1 - 12.3 fL [facility] Comment:Testing performed by : [address] [address] RBC 4.16 3.90 - 5.20 M/cumm [facility] Comment:Testing performed by : [address] [address] MCV 77.9(L) 81.3 - 96.4 fL [facility] Comment:Testing performed by : [address] [address] MCH 23.6(L) 27.1 - 33.3 pg [facility] Comment:Testing performed by : [address] [address] MCHC 30.2(L) 32.3 - 35.7 g/dL [facility] Comment:Testing performed by : [address] [address] RDW CV 17.9(H) 11.1 - 14.9 % [facility] Comment:Testing performed by : [address] [address] RDW SD 50.2(H) 35.7 - 48.1 fL [facility] Comment:Testing performed by : [address] [address] NRBC abs 0.00 0.00 - 0.01 K/cumm [facility] Comment:Testing performed by : [address] [address] Blood Venous blood specimen / Unknown 11/09/2024 2:03 PM CDT 11/09/2024 2:06 PM CDT us Simeon Morrow MD LAB BLOOD ORDERABLES Final Re sult [facility] [address] [facility] Department [place] [address] * Lipase (11/09/2024 2:03 PM CDT) Lipase 63 10 - 99 Units/L Comment:Testing performed by : [address] [address] Blood Venous blood specimen / Unknown 11/09/2024 2:03 PM CDT 11/09/2024 2:06 PM CDT us Simeon Morrow MD LAB BLOOD ORDERABLES Final Re sult [facility] [address] [facility] Department [place] [address] * (ABNORMAL) Comprehensive metabolic panel (11/09/2024 2:03 PM CDT) Pathologist [facility] Sodium 134(L) 135 - 145 mmol/L Comment:Testing performed by : [address] [address] Potassium, pl 5.5(H) 3.3 - 4.9 mmol/L [facility] Comment: Hemolyzed; Potassium value may be falsely elevated by as much as 1.0 mmol/L. Suggest redraw and reanalysis. Testing performed by: [address] [address] Chloride 100 97 - 110 mmol/L [facility] Comment:Testing performed by : [address] [address] CO2 25 22 - 32 mmol/L [facility] Comment:Testing performed by : [address] [address] Anion gap 9 2 - 15 mmol/L [facility] Comment:Testing performed by : [address] [address] BUN 19 6 - 25 mg/dL [facility] Comment:Testing performed by : [address] [address] Creatinine 1.00 0.60 - 1.10 mg/dL [facility] Comment:Testing performed by : [address] [address] Glucose 134 70 - 199 mg/dL [facility] Comment: Interpretive Data Fasting glucose >/= 126 mg/dl is diagnostic for diabetes. Fasting is defined as no caloric intake for at least 8 hours. Fasting glucose between 100 mg/dl to 125 mg/dl is diagnostic of prediabetes. In a patient with classic symptoms of hyperglycemia or hyperglycemic crisis, a random glucose >/= 200 mg/dl is diagnostic for diabetes. In the absence of unequivocal hyperglycemia, results should be confirmed by repeat testing. The classification and Diagnosis of Diabetes Diabetes Care 2021; 46: S19-S40. Current interpretive data was last revised 2022. Testing performed by: [address] [address] Calcium 8.9 8.5 - 10.3 mg/dL [facility] Comment:Testing performed by : [address] [address] Bilirubin, total 0.4 0.1 - 1.2 mg/dL [facility] Comment:Testing performed by : [address] [address] Protein, pl 8.2 6.5 - 8.5 g/dL [facility] Comment:Testing performed by : [address] [address] Albumin 3.8 3.5 - 5.0 g/dL [facility] Comment:Testing performed by : [address] [address] Alk phos 138(H) 40 - 130 Units/L [facility] Comment:Testing performed by : [address] [address] ALT 13 7 - 45 Units/L [facility] Comment:Testing performed by : [address] [address] AST 32 10 - 45 Units/L [facility] Comment: Hemolyzed; result may be falsely elevated Testing performed by: [address] [address] Blood 11/09/2024 2:03 PM CDT 11/09/2024 2:06 PM CDT us Simeon Morrow MD LAB BLOOD ORDERABLES Final Re sult [facility] [address] [facility] Department [place] [address] * POCT lipid panel (02/08/2023 10:09 AM CDT) Cholesterol, POC <100 mg/dL HDL, POC 51 mg/dL Triglycerides, POC 71 mg/dL LDL Cholesterol POC 33 mg/dL Chol/HDL Ratio, POC N/A Non-HDL Cholesterol, POC N/A mg/dL Cholesterol Total, POC <100 mg/dL Capillary blood 02/08/2023 1 0:09 AM CDT us Rick Vazquez MD POINT OF CARE TEST ORDERABLES Fi nal Result from Last 3 Months or Most Recently Relevant to Health Maintenance Insurance [facility] MEDIC[facility] ADVANTAGE Advance Directives For more information, please contact: [phone] * LIMITED - No CPR (Latest Code Status on File) Date Activated Date Inactivated Comments 11/11/2024 12:26 PM 11/14/2024 10:42 PM Question Answer Comments Provide aggressive medical m anagement before a full cardiopulmonary arrest occurs. Use antibiotics, IV Fluids, and medical treatment unless specifically selected below: No intubationNo cardioversion * Full Code Date Activated Date Inactivated Comments 11/09/2024 10:08 PM 11/11/2024 12:26 PM Care Teams Violin Teacher Relationship Specialty Start Date End Date Francisco Javier Scott DO PCP - General Internal Medicine 02/15/23
[2024-12-04 10:14] LABS: Hematocrit 38.7 % (37.0-47.0); Hemoglobin 11.3 g/dL (12.0-15.0); Immature Granulocyte Percent A 0.3 % (0-0.5); Lymphocytes Absolute Auto 1.67 K/mm3 (0.9-3.2); Mean Corpuscular HGB Conc 29.2 g/dl (32-36); Mean Corpuscular Hemoglobin 25.3 pg (26-34); Mean Corpuscular Volume 86.8 fl (80-100); Nucleated Red Blood Cells Absolute Auto 0.000 K/mm3 (0.0-0.012); Nucleated Red Blood Cells Perc 0.0 % (0.0-0.2); Platelet Count Result 262 k/mm3 (150-375); Red Blood Count 4.46 M/mm3 (4.2-5.4); White Blood Count 6.6 K/mm3 (4.5-10.0)
[2024-12-04 10:25] LABS: Prothrombin Time 49.2 Seconds (11.1-14.7)
[2024-12-04 10:26] LABS: Partial Thromboplastin Time 52.4 Seconds (22.3-36.8)
[2024-12-04 10:29] LABS: INR 5.8
[2024-12-04 10:32] LABS: Anisocytosis 1+; Hypochromasia 1+; Ovalocytes 1+
[2024-12-04 10:33] LABS: Schistocytes None Seen
[2024-12-04 10:36] LABS: Alanine Aminotransferase 16 U/L (6-35); Albumin Level 4.0 g/dL (3.5-5.1); Alkaline Phosphatase 124 U/L (38-126); Anion Gap 7 mmol/L (4-12); Aspartate Amino Transferase 35 U/L (14-36); Bilirubin,Total 0.7 mg/dL (0.2-1.3); Blood Urea Nitrogen 15 mg/dL (7-17); Calcium 9.0 mg/dL (8.4-10.2); Carbon Dioxide 30 mmol/L (22-30); Chloride 102 mmol/L (98-107); Estimated CRCL calculation 36 ml/min; Estimated Glomerular Filt Rate 50; Glucose 95 mg/dL (65-110); Potassium 4.7 mmol/L (3.4-5.0); Sodium 139 mmol/L (137-145); Total Protein 7.9 g/dL (6.3-8.2)
--- OUTSIDE RECORDS SUMMARY | 2024-12-04 12:04 | XMS_ITS | Encounter Summary ---
Author Organization [facility] Healthcare Address [address] [place] [id number] Care Team Providers Care Gemologist Name Role Phone Francisco Javier Scott DO Primary Care Provider [phone]- [phone] Encounter Details Date Type Department Care Team (Late st Contact Info) Description 12/03/2024 Anticoagulation Visit [facility] Medical Group Cardiology at [address] [place] [address] Yolande Gonsales, RN Social History Tobacco Use Types Packs/Day Years Used Date Smoking Tobacco: Never Smokeless Tobacco: Never [facility] Utilities Answer Date Recorded In the past 12 months has [employer], gas, oil, or water company threatened to [...] often do you attend chur ch or roman catholic services? Never 11/12/2024 Do you belong to any clubs o r organizations such as sabianism groups, unions, fraternal or athletic groups, or [...] any time in the past 12 m [facility], were you homeless or living in a intermediate (including now)? No 11/12/2024 Personal Safety Answer Date Recorded Have you ever been in or are you currently in a harmful physical or emotional relationship or is someone making you feel afraid or unsafe? 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
--- OUTSIDE RECORDS SUMMARY | 2024-12-04 12:04 | XMS_ITS | Encounter Summary ---
Author Organization [facility] Address [address] [place] [address] Care Team Providers Care Traveling Repair Accountant Name Role Phone Francisco Javier Scott DO Primary Care Provider [phone]- [phone] Encounter Details Date Type Department Care Team (Late st Contact Info) Description 12/04/2024 Anticoagulation Visit [facility] Cardiology at [address] [place] [address] Yolande Gonsales, RN Social History Tobacco Use Types Packs/Day Years Used Date Smoking Tobacco: Never Smokeless Tobacco: Never [facility] Utilities Answer Date Recorded In the past 12 months has [employer], gas, oil, or water company threatened to [...] often do you attend chur ch or holiness services? 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
--- OUTSIDE RECORDS SUMMARY | 2024-12-04 12:04 | XMS_ITS | Encounter Summary ---
Author Organization [facility] Healthcare Address [address] [place] [address] Care Team Providers Care Production Troubleshooter Name Role Phone Francisco Javier Scott DO Primary Care Provider [phone]- [phone] Encounter Details Date Type Department Care Team (Late st Contact Info) Description 12/03/2024 Telephone [facility] Cardiology [address] [address] Carlyle Pinedo MD [address] [facility] [address] [facility] [address] [facility] [address] [place] [address] Social History Tobacco Use Types Packs/Day Years Used Date Smoking Tobacco: Never Smokeless Tobacco: Never [facility] Utilities Answer Date Recorded In the past 12 months has [employer], gas, oil, or water [employer] threatened to shut off services in your [...] How often do you attend chur or presybeterian services? 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
--- OUTSIDE RECORDS SUMMARY | 2024-12-04 12:04 | XMS_ITS | Encounter Summary ---
Author Organization [facility] Healthcare Address [address] [place] [address] Care Team Providers Care Rent Control Office Manager Name Role Phone Francisco Javier Scott DO Primary Care Provider +1- [phone] Encounter Details Date Type Department Care Team (Late st Contact Info) Description 11/26/2024 Telephone [facility] Medical [facility] Cardiology [address] [place] [address] Rick Vazquez MD [address] [facility] [address] [facility] [address], [address] [place] [address] Social History Tobacco Use Types Packs/Day Years Used Date Smoking Tobacco: Never Smokeless Tobacco: Never [facility] Utilities Answer Date Recorded In the past 12 months has [employer], gas, oil, or water [employer] threatened to shut off services in your [...] week 11/12/2024 How often do you attend [facility] or christian services? Never 11/12/2024 Do you belong to [...] were you homeless or living in a assisted (including now)? No 11/12/2024 Personal Safety Answer Date Recorded Have you ever been in or are you currently in a harmful physical or emotional relationship or is someone making you feel afraid or unsafe? 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
--- OUTSIDE RECORDS SUMMARY | 2024-12-04 12:04 | XMS_ITS | Clinical Summary ---
Author Organization [facility] [place] [address] Address [address] [place] [address] Care Team Providers Care [place] Neck Whipper Name Role Phone Francisco Javier Scott DO Primary Care Provider [phone]- [phone] Allergies Active Allergy Reactions Criticality Noted Date [...] speaks with either her PCP or her computer publisher. I advised that she see 1 or the other in 2 days to have an INR rechecked. I called the office of Dr. Scott to be informed by his agents' records clerk the patient has never been seen there. I then called computer publisher Dr. Vazquez and spoke with his nurse. [...] Department Care Team Description 12/04/2024 Anticoagulation Visit [facility] Cardiology at [address] [place] [phone] Yolande Gonsales RN 12/03/2024 Telephone [facility] Card[facility] [address] [place] [address] [place] [phone] Carlyle Pinedo MD 12/03/2024 Anticoagulation Visit [facility] at [address] [place] [phone] Yolande Gonsales RN 11/29/2024 1:30 PM CDT Office Visit [facility] [address] [place] [address] [place] [phone] Shruthi Poe NP History of recent stroke (Primary Dx); Encounter for anticoagulation discussion and counseling; Longstanding persistent atrial fibrillation (HCC); 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]; Hospital discharge follow-up 11/29/2024 Anticoagulation Visit [facility] at [address] [place] [phone] Yolande Gonsales RN 11/29/2024 Telephone [facility] [address] [place] [address] [place] [phone] Rick Vazquez MD 11/29/2024 Telephone [facility] Post Acute Care [address] [facility] [address] [place] [phone] Terrie Schultz MA 11/28/2024 Telephone [facility] [address] [place] [address] [place] [phone] Rick Vazquez MD 11/27/2024 Anticoagulation Visit [facility] [address] [place] [address] [place] [phone] Dalia Walker RN 11/27/2024 Telephone [facility] Home [facility] Services [address] [place] [address] [place] [phone] Shauna Oconnor, RN 11/26/2024 Telephone [facility] [address] [place] [address] [place] [phone] Shauna Oconnor, RN 11/26/2024 Telephone [facility] [address] [place] [address] [place] [phone] Shauna Oconnor, RN 11/26/2024 Telephone [facility] [address] [place] [address] [place] [phone] Shauna Oconnor, RN 11/26/2024 Telephone [facility] [address] [place] [phone] Rick Vazquez MD 11/25/2024 NH/SNF Visit [facility] Post Acute Care [address] [phone] Tad Talbot MD Anticoagulated on Coumadin (Primary Dx); Longstanding persistent atrial fibrillation (HCC) 11/25/2024 Telephone [facility] [address] [facility] [address] [place] [phone] Shauna Oconnor, JOHANA 11/25/2024 Telephone [facility] [address] [facility] [address] [place] [phone] Shauna Oconnor RN 11/25/2024 Telephone [facility] [address] [place] [address] [place] [phone] Shauna Oconnor RN 11/25/2024 Anticoagulation Visit [facility] [address] [place] [phone] Dalia Walker RN 11/25/2024 Telephone [facility] [address] [place] [address] [place] [phone] Rick Vazquez MD 11/22/2024 NH/SNF Visit [facility] Post Acute Care [address] [phone] Kailyn Martines NP Longstanding persistent atrial fibrillation (HCC) (Primary Dx); Anticoagulated on Coumadin; Essential hypertension; Stage 3a chronic kidney disease (HCC); Hyperkalemia 11/21/2024 NH/SNF Visit [facility] Post Acute Care [address] [phone] Kailyn Martines NP Stage 3a chronic kidney disease (HCC) (Primary Dx); Essential hypertension; Supratherapeutic INR 11/19/2024 Results Follow-Up [facility] [address] [phone] Kailyn Martines NP CBC without differential, Comprehensive metabolic panel, eGFR, Additional followed-up results: 11 11/18/2024 NH/SNF Visit [facility] Post Acute Care [address] [phone] Kailyn Martines NP Longstanding persistent atrial fibrillation (HCC) (Primary Dx); Supratherapeutic INR; Essential hypertension; Hyperkalemia; Stage 3a chronic kidney disease (HCC); Type 2 diabetes mellitus without complication, without long-term current use of insulin (HCC) 11/18/2024 Orders Only [facility] Hospitalists [address] [place] [phone] Tad Talbot MD 11/15/2024 NH/SNF Visit [facility] Care [address] [phone] Tad Talbot MD Cerebrovascular accident (CVA), unspecified [...] - 11/14/2024 6:36 PM CDT Hospital Encounter [place] [address] [address] [place] [address] Simeon Morrow MD [place], MD Quoc Ramos [...] Tobacco: Never Tobacco Cessation:Counseling Given: Not Answered [facility] Utilities Answer Date Recorded In the past 12 months has th e [employer], gas, oil, or water [employer] threatened to shut off services in your [...] often do you attend chur ch or buddhism services? 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 Reference Range 0.9-1.1 Moderate-intensity Warfarin Therapy 2.0-3.0 Higher-intensity Warfarin Therapy 3.0-4.0 PT 75.8(H) 9.0 - 11.5 sec 4tiitoo-Jake Rivas Comment: Verified by repeat analysis. For additional information, please refer to http://[employer].Venafi/faq/VOU473 (This link is being provided for informational/ educational purposes only.) Blood 12/03/2024 11:3 1 AM CDT 12/03/2024 11:31 AM CDT us Rick Vazquez MD LAB BLOOD ORDERABLES Final Resul t [facility] [address] [place] [address] * (ABNORMAL) Protime-INR (11/29/2024 8:53 AM CDT) INR 3.9(H) 4tiitooLeland Rivas Comment: Reference Range 0.9-1.1 Moderate-intensity Warfarin Therapy 2.0-3.0 Higher-intensity Warfarin Therapy 3.0-4.0 PT 38.3(H) 9.0 - 11.5 sec 4tiitooLeland Rivas Comment: For additional information, please refer to http://[employer]i/faq/ARQ767 (This link is being provided for informational/ educational purposes only.) Blood 11/29/2024 8:53 AM CDT 11/29/2024 8:53 AM CDT Rick Vazquez MD LAB BLOOD ORDERABLES Final Resul t Performing Organization Address [facility] de Phone Number [facility] [address] [place] [phone] * (ABNORMAL) Protime-INR (11/27/2024 10:07 AM CDT) INR 4.3(H) [email or web address] Rivas Comment: Reference Range 0.9-1.1 Moderate-intensity Warfarin Therapy 2.0-3.0 Higher-intensity Warfarin Therapy 3.0-4.0 PT 41.9(H) 9.0 - 11.5 sec [email or web address] Comment: For additional information, please refer to http://education.Venafi/faq/PXW216 (This link is being provided for informational/ educational purposes only.) Blood 11/27/2024 10:0 7 AM CDT 11/27/2024 10:08 AM CDT Narrative [facility] - 11/27/2024 3:10 PM CDT FASTING:NO FASTING: NO Rick Vazquez MD LAB BLOOD ORDERABLES Final Resul t Performing Organization Address [facility] de Phone Number [facility] [address] [place] [address] * (ABNORMAL) eGFR (11/25/2024 6:46 AM CDT) [...] Current interpretive data was last reviewed 2021. [address] [address] Blood 11/25/2024 6:46 AM CDT 11/25/2024 7:43 AM CDT Kailyn Martines NP LAB BLOOD ORDERABLES Final Result Performing Organization Address [facility] Co de Phone Number [address] [place] [address] * (ABNORMAL) Protime-INR (11/25/2024 6:46 AM CDT) PT 42.90(H) 12.00 - 14.60 sec AVR[facility] Comment: Ref Range High [address] [address] INR 4.48(H) 0.90 - 1.20 [facility] Comment: Ref Range High Interpretive data Oral anticoagulant therapeutic ranges: Venous thromboembolism prophylaxis or treatment: 2.0-3.0 CARDIOLOGY Standard range: 2.0-3.0 High-intensity range: 2.5-3.5 Refer to indication-specific guidelines for appropriate target ranges for prosthetic heart valve replacement. Current interpretive data was last revised on 2019. [address] [address] Blood 11/25/2024 6:46 AM CDT 11/25/2024 7:43 AM CDT Kailyn Martines NP LAB BLOOD ORDERABLES Final Result Performing Organization Address City/[facility]/ZIP Co de Phone Number [address] [place] [address] * (ABNORMAL) CBC without differential (11/25/2024 6:46 AM CDT) [facility] WBC 7.54 3.80 - 9.90 K/cumm [facility] Comment:[address], [address] Hgb 11.2(L) 11.9 - 15.5 g/dL CERISAI Comment:[address], [address] Hct 38.1 35.6 - 45.5 % [facility] Comment:[address], [address] Plt 403(H) 150 - 400 K/cumm CERISAI MH Comment:[address], [address] MPV 9.8 9.1 - 12.3 fL [facility] Comment:[address], [address] RBC 4.57 3.90 - 5.20 M/cumm CERISAI MH Comment:[address], [address] MCV 83.4 81.3 - 96.4 fL CERISAI Comment:[address], [address] MCH 24.5(L) 27.1 - 33.3 pg CERISAI Comment:[address], [address] MCHC 29.4(L) 32.3 - 35.7 g/dL [facility] Comment:[address], [address] RDW CV 22.0(H) 11.1 - 14.9 % [facility] Comment:[address], [address] RDW SD 62.5(H) 35.7 - 48.1 fL [facility] Comment:[address], [address] NRBC abs 0.00 0.00 - 0.01 K/cumm [facility] Comment:[address], [address] Blood 11/25/2024 6:46 AM CDT 11/25/2024 7:43 AM CDT us Kailyn M. Martines DEMAND PLANNING ANALYST LAB BLOOD ORDERABLES Final Result [facility] [address] Department [place] [address] * (ABNORMAL) Basic metabolic panel (11/25/2024 6:46 AM CDT) Sodium 142 135 - 145 mmol/L AV[facility] Comment:[address] [address] Potassium, pl 4.2 3.3 - 4.9 mmol/L [facility] Comment:[address] [address] Chloride 105 97 - 110 mmol/L [facility] Comment:[address] [address] CO2 28 22 - 32 mmol/L [facility] Comment:[address] [address] Anion gap 9 2 - 15 mmol/L [facility] Comment:[address] [address] BUN 22 6 - 25 mg/dL [facility] Comment:[address] [address] Creatinine 1.14(H) 0.60 - 1.10 mg/dL [facility] Comment:[address] [address] Glucose 92 70 - 199 mg/dL AVRIL [...] Current interpretive data was last revised 2022. [facility], [address] [place] [address]., [address] Calcium 9.1 8.5 - 10.3 mg/dL [facility] Comment:[address] [address] Blood 11/25/2024 6:46 AM CDT 11/25/2024 7:43 AM CDT Kailyn Martines DEMAND PLANNING ANALYST LAB BLOOD ORDERABLES Final Result Performing Organization Address [facility] Co de Phone Number [address] [address] * (ABNORMAL) eGFR (11/21/2024 2:32 PM CDT) eGFR 44(L) >=60 mL/min/1. 73 m2 [facility] Comment: Interpretive Data Reference Interval [...] Current interpretive data was last reviewed 2021. [address] [address] Blood 11/21/2024 2:32 PM CDT 11/21/2024 2:41 PM CDT Kailyn Martines NP LAB BLOOD ORDERABLES Final Result Performing Organization Address [facility]/ZIP Co de Phone Number [address] [place] [address] * (ABNORMAL) Protime-INR (11/21/2024 2:32 PM CDT) PT 25.30(H) 12.00 - 14.60 sec [facility] Comment: Ref Range High [facility], [address] [place] [address]., [address] INR 2.27(H) 0.90 - 1.20 [facility] Comment: Ref Range High Interpretive data Oral anticoagulant therapeutic ranges: Venous thromboembolism prophylaxis or treatment: 2.0-3.0 CARDIOLOGY Standard range: 2.0-3.0 High-intensity range: 2.5-3.5 Refer to indication-specific guidelines for appropriate target ranges for prosthetic heart valve replacement. Current interpretive data was last revised on 2019. [facility], [address] [place] [address]., [address] Blood 11/21/2024 2:32 PM CDT 11/21/2024 2:41 PM CDT Kailyn Martines DEMAND PLANNING ANALYST LAB BLOOD ORDERABLES Final Result [facility] [address] Department [place] [address] * (ABNORMAL) Basic metabolic panel (11/21/2024 2:32 PM CDT) Pathologist [facility] Sodium 141 135 - 145 mmol/L [facility] Comment:[address] [address] Potassium, pl 4.8 3.3 - 4.9 mmol/L [facility] Comment:[address] [address] Chloride 104 97 - 110 mmol/L [facility] Comment:[address] [address] CO2 27 22 - 32 mmol/L [facility] Comment:[address] [address] Anion gap 10 2 - 15 mmol/L [facility] Comment:[address] [address] BUN 28(H) 6 - 25 mg/dL [facility] Comment:[address] [address] Creatinine 1.24(H) 0.60 - 1.10 mg/dL AV[facility] VALENTINO Comment:[address] [address] Glucose 98 70 - 199 mg/dL AVRIL [...] Current interpretive data was last revised 2022. [facility], [address] [place] [address]., [address] Calcium 8.7 8.5 - 10.3 mg/dL [facility] Comment:[address] [address] Blood 11/21/2024 2:32 PM CDT 11/21/2024 2:41 PM CDT us Kailyn Martines DEMAND PLANNING ANALYST LAB BLOOD ORDERABLES Final Result [facility] [address] Department [place] [address] * (ABNORMAL) eGFR (11/19/2024 5:38 AM CDT) [...] Current interpretive data was last reviewed 2021. [address] [address] Blood 11/19/2024 5:38 AM CDT 11/19/2024 6:19 AM CDT Kailyn Martines NP LAB BLOOD ORDERABLES Final Result Performing Organization Address [facility] Co de Phone Number [address] [place] [address] * (ABNORMAL) Protime-INR (11/19/2024 5:38 AM CDT) PT 45.40(H) 12.00 - 14.60 sec [facility] Comment: Ref Range High [address] [address] INR 4.82(H) 0.90 - 1.20 [facility] Comment: Ref Range High Interpretive data Oral anticoagulant therapeutic ranges: Venous thromboembolism prophylaxis or treatment: 2.0-3.0 CARDIOLOGY Standard range: 2.0-3.0 High-intensity range: 2.5-3.5 Refer to indication-specific guidelines for appropriate target ranges for prosthetic heart valve replacement. Current interpretive data was last revised on 2019. [address] [address] Blood 11/19/2024 5:38 AM CDT 11/19/2024 6:19 AM CDT Kailyn Martines NP LAB BLOOD ORDERABLES Final Result Performing Organization Address City/[facility]/ZIP Co de Phone Number [address] [place] [address] * (ABNORMAL) Basic metabolic panel (11/19/2024 5:38 AM CDT) Sodium 139 135 - 145 mmol/L AV[facility] Comment:[address] [address] Potassium, pl 5.2(H) 3.3 - 4.9 mmol/L [facility] Comment:[address] [address] Chloride 100 97 - 110 mmol/L [facility] Comment:[address] [address] CO2 29 22 - 32 mmol/L [facility] Comment:[address] [address] Anion gap 10 2 - 15 mmol/L [facility] Comment:[address] [address] BUN 25 6 - 25 mg/dL [facility] Comment:[address] [address] Creatinine 1.33(H) 0.60 - 1.10 mg/dL [facility] Comment:[address] [address] Glucose 118 70 - 199 mg/dL AVRIL [...] Current interpretive data was last revised 2022. [facility], [address] [place] [address]., [address] Calcium 8.9 8.5 - 10.3 mg/dL [facility] Comment:[address] [address] Blood 11/19/2024 5:38 AM CDT 11/19/2024 6:19 AM CDT Kailyn Martines NP LAB BLOOD ORDERABLES Final Result [facility] [address] Department [place] [address] * (ABNORMAL) eGFR (11/18/2024 3:50 AM CDT) [...] Current interpretive data was last reviewed 2021. [address] [address] Blood 11/18/2024 3:50 AM CDT 11/18/2024 4:17 AM CDT us Tad Talbot MD LAB BLOOD ORDERABLES Final R esult [facility] [address] Department [place] [address] * (ABNORMAL) Protime-INR (11/18/2024 3:50 AM CDT) PT 49.60(H) 12.00 - 14.60 sec [facility] VALENTINO Comment: Ref Range High [address] [address] INR 5.39(C) 0.90 - 1.20 [facility] VALENTINO Comment: Ref Range High Critical value. Results called to and read back by: Critical Result called to and read back by [email or web address] [id number], DATE: 2024-11-18 05:55:21 BY: [email or web address] Interpretive data Oral anticoagulant therapeutic ranges: Venous thromboembolism prophylaxis or treatment: 2.0-3.0 CARDIOLOGY Standard range: 2.0-3.0 High-intensity range: 2.5-3.5 Refer to indication-specific guidelines for appropriate target ranges for prosthetic heart valve replacement. Current interpretive data was last revised on 2019. [facility], [address] [place] [address]., [address] Blood 11/18/2024 3:50 AM CDT 11/18/2024 4:17 AM CDT us Tad Talbot MD LAB BLOOD ORDERABLES Final R esult [facility] [address] Department [place] [address] * (ABNORMAL) CBC without differential (11/18/2024 3:50 AM CDT) WBC 9.91(H) 3.80 - 9.90 K/cumm [facility] Comment:[address] [address] Hgb 10.2(L) 11.9 - 15.5 g/dL [facility] Comment:[address] [address] Hct 35.1(L) 35.6 - 45.5 % [facility] Comment:[address] [address] Plt 353 150 - 400 K/cumm [facility] Comment:[address] [address] MPV 9.9 9.1 - 12.3 fL [facility] Comment:[address] [address] RBC 4.26 3.90 - 5.20 M/cumm [facility] Comment:[address] [address] MCV 82.4 81.3 - 96.4 fL [facility] Comment:[address] [address] MCH 23.9(L) 27.1 - 33.3 pg [facility] Comment:[address] [address] MCHC 29.1(L) 32.3 - 35.7 g/dL [facility] Comment:[address] [address] RDW CV 19.9(H) 11.1 - 14.9 % [facility] Comment:[address] [address] RDW SD 53.1(H) 35.7 - 48.1 fL [facility] Comment:[address], [address] NRBC abs 0.00 0.00 - 0.01 K/cumm [facility] Comment:[address], [address] Blood 11/18/2024 3:50 AM CDT 11/18/2024 4:17 AM CDT Tad Talbot MD LAB BLOOD ORDERABLES Final R esult [facility] [address] [facility] Department [place] [address] * (ABNORMAL) Comprehensive metabolic panel (11/18/2024 3:50 AM CDT) Sodium 137 135 - 145 mmol/L [facility] Comment:[address] [address] Potassium, pl 5.1(H) 3.3 - 4.9 mmol/L [facility] Comment:[address] [address] Chloride 98 97 - 110 mmol/L [facility] Comment:[address], [address] CO2 29 22 - 32 mmol/L [facility] Comment:[address], [address] Anion gap 10 2 - 15 mmol/L [facility] Comment:[address], [address] BUN 22 6 - 25 mg/dL [facility] Comment:[address] [address] Creatinine 1.11(H) 0.60 - 1.10 mg/dL [facility] Comment:[address] [address] Glucose 114 70 - 199 mg/dL [facility] Comment: Interpretive Data Fasting glucose [...] Current interpretive data was last revised 2022. [facility], [address] [place]., [address] Calcium 8.8 8.5 - 10.3 mg/dL [facility] Comment:[address] [address] Bilirubin, total 0.3 0.1 - 1.2 mg/dL [facility] Comment:[address] [address] Protein, pl 7.5 6.5 - 8.5 g/dL [facility] Comment:[address] [address] Albumin 3.5 3.5 - 5.0 g/dL [facility] Comment:[address] [address] Alk phos 131(H) 40 - 130 Units/L [facility] Comment:[address] [address] ALT 25 7 - 45 Units/L [facility] Comment:[address] [address] AST 35 10 - 45 Units/L [facility] Comment:[address] [address] Blood 11/18/2024 3:50 AM CDT 11/18/2024 4:17 AM CDT us Tad Talbot MD LAB BLOOD ORDERABLES Final R esult Performing Organization Address [facility] Co de Phone Number JOHN[address] [place] [address] * POCT glucose (11/14/2024 12:34 PM CDT) Glucose, POC 114 70 - 199 mg/dL Comment:Testing performed by : [address] [address] Blood 11/14/2024 12:3 4 PM CDT 11/14/2024 12:34 PM CDT Osiris Kumari MD LAB POCT ORDERABLES - DE VICE Final Result Performing Organization Address [facility] Co de Phone Number [address] [address] * POCT glucose (11/14/2024 7:58 AM CDT) [facility] Glucose, POC 112 70 - 199 mg/dL Comment:Testing performed by : [address] [address] Blood 11/14/2024 7:58 AM CDT 11/14/2024 7:58 AM CDT Osiris Kumari MD LAB POCT ORDERABLES - DE VICE Final Result Performing Organization Address [facility] Co de Phone Number [address] [place] [address] * eGFR (11/14/2024 4:44 AM CDT) eGFR [...] was last reviewed 2021. Testing performed by: [address] [address] Blood 11/14/2024 4:44 AM CDT 11/14/2024 5:05 AM CDT us Osiris Kumari MD LAB BLOOD ORDERABLES Fin al Result [facility] [address] [facility] Department [place] [address] * (ABNORMAL) Protime-INR (11/14/2024 4:44 AM CDT) PT 22.0(H) 12.0 - 14.6 sec Comment: Ref Range High Testing performed by: [address] [address] INR 2.0(H) 0.9 - 1.2 [facility] Comment: Ref Range High Interpretive data Oral anticoagulant therapeutic ranges: Venous thromboembolism prophylaxis or treatment: 2.0-3.0 CARDIOLOGY Standard range: 2.0-3.0 High-intensity range: 2.5-3.5 Refer to indication-specific guidelines for appropriate target ranges for prosthetic heart valve replacement. Current interpretive data was last revised on 2019. Testing performed by: [address] [address] Blood 11/14/2024 4:44 AM CDT 11/14/2024 5:05 AM CDT us Osiris Kumari MD LAB BLOOD ORDERABLES Fin al Result [facility] [address] [facility] Department [place] [address] * (ABNORMAL) CBC without differential (11/14/2024 4:44 AM CDT) [facility] Signature WBC 9.56 3.80 - 9.90 K/cumm Comment:Testing performed by : [address] [address] Hgb 9.0(L) 11.9 - 15.5 g/dL [facility] Comment:Testing performed by : [address] [address] Hct 31.4(L) 35.6 - 45.5 % [facility] Comment:Testing performed by : [address] [address] Plt 299 150 - 400 K/cumm [facility] Comment:Testing performed by : [address] [address] MPV 9.7 9.1 - 12.3 fL [facility] Comment:Testing performed by : [address] [address] RBC 3.86(L) 3.90 - 5.20 M/cumm [facility] Comment:Testing performed by : [address] [address] MCV 81.3 81.3 - 96.4 fL [facility] Comment:Testing performed by : [address] [address] MCH 23.3(L) 27.1 - 33.3 pg [facility] Comment:Testing performed by : [address] [address] MCHC 28.7(L) 32.3 - 35.7 g/dL [facility] Comment:Testing performed by : [address] [address] RDW CV 18.3(H) 11.1 - 14.9 % [facility] Comment:Testing performed by : [address] [address] RDW SD 53.4(H) 35.7 - 48.1 fL AVRIL VALENTINO Comment:Testing performed by : [address] [address] NRBC abs 0.00 0.00 - 0.01 K/cumm AVRIL VALENTINO Comment:Testing performed by : [address] [address] Blood 11/14/2024 4:44 AM CDT 11/14/2024 5:05 AM CDT Narrative AVRIL - 11/14/2024 5:07 AM CDT While on enoxaparin Osiris Kumari MD LAB BLOOD ORDERABLES Fin al Result Performing Organization Address City/[facility]/ZIP Co de Phone Number [facility] [employer] [place] [address] * Creatinine (11/14/2024 4:44 AM CDT) Creatinine 0.95 0.60 - 1.10 mg/dL Comment:Testing performed by : [address] [address] Blood 11/14/2024 4:44 AM CDT 11/14/2024 5:05 AM CDT Narrative AVRIL - 11/14/2024 5:40 AM CDT While on enoxaparin Osiris Kumari MD LAB BLOOD ORDERABLES Fin al Result [address] [place] [address] * POCT glucose (11/13/2024 9:42 PM CDT) Glucose, POC 132 70 - 199 mg/dL Comment:Testing performed by : [address] [address] Glucose comment 1 RN/MD Notified AVRIL Comment:Testing performed by : [address] [address] Blood 11/13/2024 9:42 PM CDT 11/13/2024 9:42 PM CDT Osiris Kumari MD LAB POCT ORDERABLES - DE VICE Final Result Performing Organization Address City/[facility] Co de Phone Number JOHN[address] [address] * POCT glucose (11/13/2024 5:14 PM CDT) Glucose, POC 118 70 - 199 mg/dL Comment:Testing performed by : [address] [address] Blood 11/13/2024 5:14 PM CDT 11/13/2024 5:14 PM CDT Osiris Kumari MD LAB POCT ORDERABLES - DE VICE Final Result Performing Organization Address [facility] Co de Phone Number [address] [address] * POCT glucose (11/13/2024 1:40 PM CDT) Glucose, POC 101 70 - 199 mg/dL Comment:Testing performed by : [address] [address] Blood 11/13/2024 1:40 PM CDT 11/13/2024 1:40 PM CDT Osiris Kumari MD LAB POCT ORDERABLES - DE VICE Final Result Performing Organization Address City/[facility] Co de Phone Number [address] [address] * POCT glucose (11/13/2024 7:54 AM CDT) Glucose, POC 120 70 - 199 mg/dL Comment:Testing performed by : [address], [place]., [address] Blood 11/13/2024 7:54 AM CDT 11/13/2024 7:54 AM CDT us Osiris Kumari MD LAB POCT ORDERABLES - DE VICE Final Result Performing Organization Address [facility] Co de Phone Number AVRIL [address] [place] [address] * (ABNORMAL) eGFR (11/13/2024 4:44 AM CDT) [...] was last reviewed 2021. Testing performed by: [facility], [address] [place] [address]., [address] Blood 11/13/2024 4:44 AM CDT 11/13/2024 5:08 AM CDT us Matteo Amaya MD LAB BLOOD ORDERABLES Final Re sult Performing Organization Address City/[facility]/ZIP Co de Phone Number [facility] [place] [address] * (ABNORMAL) Differential, auto (11/13/2024 4:44 AM CDT) [facility] Neutrophil abs 7.55(H) 1.50 - 6.50 K/cumm Comment:Testing performed by : [address] [address] Imm gran abs 0.07 0.00 - 0.10 K/cumm AVRIL Comment:Testing performed by : [address] [address] Lymphocyte abs 1.64 0.80 - 3.30 K/cumm AVRIL Comment:Testing performed by : [address] [address] Monocyte abs 0.98(H) 0.20 - 0.80 K/cumm AVRIL Comment:Testing performed by : [address] [address] Eosinophil abs 0.23 0.00 - 0.50 K/cumm AVRIL Comment:Testing performed by : [address] [address] Basophil abs 0.06 0.00 - 0.10 K/cumm [facility] Comment:Testing performed by : [address] [address] Neutrophil pct 71.6 % [facility] Comment: Interpretive Data Percent cell count reference ranges are not reported, since discordance with absolute values may lead to misinterpretation of CBC data. Current Interpretive Data was last revised on 2017. Testing performed by: [address] [address] Imm gran pct 0.7 % [facility] Comment: Interpretive Data Percent cell count reference ranges are not reported, since discordance with absolute values may lead to misinterpretation of CBC data. Current Interpretive Data was last revised on 2017. Testing performed by: [address] [address] Lymphocyte pct 15.6 % [facility] Comment: Interpretive Data Percent cell count reference ranges are not reported, since discordance with absolute values may lead to misinterpretation of CBC data. Current Interpretive Data was last revised on 2017. Testing performed by: [address] [place] [address] Monocyte pct 9.3 % AVRIL Comment: Interpretive Data Percent cell count reference ranges are not reported, since discordance with absolute values may lead to misinterpretation of CBC data. Current Interpretive Data was last revised on 2017. Testing performed by: [address] [address] Eosinophil pct 2.2 % AVRIL VALENTINO Comment: Interpretive Data Percent cell count reference ranges are not reported, since discordance with absolute values may lead to misinterpretation of CBC data. Current Interpretive Data was last revised on 2017. Testing performed by: [address] [address] Basophil pct 0.6 % AVRIL Comment: Interpretive Data Percent cell count reference ranges are not reported, since discordance with absolute values may lead to misinterpretation of CBC data. Current Interpretive Data was last revised on 2017. Testing performed by: [address] [address] Blood 11/13/2024 4:44 AM CDT 11/13/2024 5:12 AM CDT us Matteo Amaya MD LAB BLOOD ORDERABLES Final Re sult AVRIL 5818 [facility] Department of Laboratories [place], [place] [id number] * (ABNORMAL) CBC with auto differential (11/13/2024 4:44 AM CDT) WBC 10.53(H) 3.80 - 9.90 K/cumm Comment:Testing performed by : [address] [address] Hgb 8.8(L) 11.9 - 15.5 g/dL AVRIL VALENTINO Comment:Testing performed by : [address] [address] Hct 30.9(L) 35.6 - 45.5 % AVRIL VALENTINO Comment:Testing performed by : [address] [address] Plt 231 150 - 400 K/cumm AVRIL Comment:Testing performed by : [address] [address] MPV 10.3 9.1 - 12.3 fL AVRIL VALENTINO Comment:Testing performed by : [address] [address] RBC 3.82(L) 3.90 - 5.20 M/cumm AVRIL Comment:Testing performed by : [address] [address] MCV 80.9(L) 81.3 - 96.4 fL AVRIL Comment:Testing performed by : [address] [address] MCH 23.0(L) 27.1 - 33.3 pg AVRIL Comment:Testing performed by : [address] [address] MCHC 28.5(L) 32.3 - 35.7 g/dL AVRIL Comment:Testing performed by : [address] [address] RDW CV 18.0(H) 11.1 - 14.9 % AVRIL Comment:Testing performed by : [address] [address] RDW SD 52.6(H) 35.7 - 48.1 fL AVRIL Comment:Testing performed by : [address] [address] NRBC abs 0.00 0.00 - 0.01 K/cumm AVRIL Comment:Testing performed by : [address] [address] Blood 11/13/2024 4:44 AM CDT 11/13/2024 5:12 AM CDT us Matteo Amaya MD LAB BLOOD ORDERABLES Final Re sult AVRIL 9847 [facility] Department [place] [address] * (ABNORMAL) Protime-INR (11/13/2024 4:44 AM CDT) PT 18.6(H) 12.0 - 14.6 sec Comment: Ref Range High Testing performed by: [address] [address] INR 1.6(H) 0.9 - 1.2 AVRIL Comment: Ref Range High Interpretive data Oral anticoagulant therapeutic ranges: Venous thromboembolism prophylaxis or treatment: 2.0-3.0 CARDIOLOGY Standard range: 2.0-3.0 High-intensity range: 2.5-3.5 Refer to indication-specific guidelines for appropriate target ranges for prosthetic heart valve replacement. Current interpretive data was last revised on 2019. Testing performed by: [address] [address] Blood 11/13/2024 4:44 AM CDT 11/13/2024 5:08 AM CDT Osiris Kumari MD LAB BLOOD ORDERABLES Fin al Result [facility] [address] [facility] Department [place] [address] * Basic metabolic panel (11/13/2024 4:44 AM CDT) Sodium 137 135 - 145 mmol/L Comment:Testing performed by : [address] [address] Potassium, pl 4.9 3.3 - 4.9 mmol/L AVRIL Comment: Hemolyzed; Potassium value may be falsely elevated by as much as 1.0 mmol/L. Suggest redraw and reanalysis. Testing performed by: [address] [address] Chloride 103 97 - 110 mmol/L AVRIL Comment:Testing performed by : [address] [address] CO2 25 22 - 32 mmol/L AVRIL Comment:Testing performed by : [address] [address] Anion gap 9 2 - 15 mmol/L AVRIL Comment:Testing performed by : [address] [address] BUN 16 6 - 25 mg/dL AVRIL Comment:Testing performed by : [address] [address] Creatinine 1.01 0.60 - 1.10 mg/dL AVRIL Comment:Testing performed by : [address] [address] Glucose 124 70 - 199 mg/dL AVRIL [...] was last revised 2022. Testing performed by: [address] [address] Calcium 8.5 8.5 - 10.3 mg/dL AVRIL Comment:Testing performed by : [address] [address] Blood 11/13/2024 4:44 AM CDT 11/13/2024 5:08 AM CDT us Matteo Amaya MD LAB BLOOD ORDERABLES Final Re sult [facility] 47[address] [facility] Department [place] [address] * POCT glucose (11/12/2024 8:57 PM CDT) [facility] Signature Glucose, POC 127 70 - 199 mg/dL Comment:Testing performed by : [address] [address] Blood 11/12/2024 8:57 PM CDT 11/12/2024 8:57 PM CDT Osiris Kumari MD LAB POCT ORDERABLES - DE VICE Final Result Performing Organization Address [facility] Co de Phone Number AVRIL [address] [place] [address] * POCT glucose (11/12/2024 5:06 PM CDT) Glucose, POC 128 70 - 199 mg/dL Comment:Testing performed by : [address] [address] Blood 11/12/2024 5:06 PM CDT 11/12/2024 5:06 PM CDT Osiris Kumari MD LAB POCT ORDERABLES - DE VICE Final Result Performing Organization Address [facility] Co de Phone Number [address] [address] * POCT glucose (11/12/2024 11:40 AM CDT) [facility] Glucose, POC 142 70 - 199 mg/dL Comment:Testing performed by : [facility], [address] [place] [address]., [address] Blood 11/12/2024 11:4 0 AM CDT 11/12/2024 11:40 AM CDT Osiris Kumari MD LAB POCT ORDERABLES - DE VICE Final Result Performing Organization Address [facility] Co de Phone Number [address] [place] [address] * (ABNORMAL) eGFR (11/12/2024 9:15 AM CDT) [facility] eGFR 51(L) >=60 mL/min/1. 73 m2 Comment: [...] was last reviewed 2021. Testing performed by: [address] [address] Blood 11/12/2024 9:15 AM CDT 11/12/2024 9:36 AM CDT us Matteo Amaya MD LAB BLOOD ORDERABLES Final Re sult AVRIL 4886 [facility] Department [place] [address] * (ABNORMAL) Differential, auto (11/12/2024 9:15 AM CDT) Neutrophil abs 9.77(H) 1.50 - 6.50 K/cumm Comment:Testing performed by : [address] [address] Imm gran abs 0.07 0.00 - 0.10 K/cumm AVRIL Comment:Testing performed by : [address] [address] Lymphocyte abs 1.53 0.80 - 3.30 K/cumm AVRIL Comment:Testing performed by : [address] [address] Monocyte abs 0.89(H) 0.20 - 0.80 K/cumm AVRIL Comment:Testing performed by : [address] [address] Eosinophil abs 0.18 0.00 - 0.50 K/cumm [facility] Comment:Testing performed by : [address] [address] Basophil abs 0.05 0.00 - 0.10 K/cumm [facility] Comment:Testing performed by : [address] [address] Neutrophil pct 78.3 % [facility] Comment: Interpretive Data Percent cell count reference ranges are not reported, since discordance with absolute values may lead to misinterpretation of CBC data. Current Interpretive Data was last revised on 2017. Testing performed by: [address] [address] Imm gran pct 0.6 % [facility] Comment: Interpretive Data Percent cell count reference ranges are not reported, since discordance with absolute values may lead to misinterpretation of CBC data. Current Interpretive Data was last revised on 2017. Testing performed by: [address] [address] Lymphocyte pct 12.2 % [facility] Comment: Interpretive Data Percent cell count reference ranges are not reported, since discordance with absolute values may lead to misinterpretation of CBC data. Current Interpretive Data was last revised on 2017. Testing performed by: [address] [address] Monocyte pct 7.1 % [facility] Comment: Interpretive Data Percent cell count reference ranges are not reported, since discordance with absolute values may lead to misinterpretation of CBC data. Current Interpretive Data was last revised on 2017. Testing performed by: [address] [address] Eosinophil pct 1.4 % [facility] Comment: Interpretive Data Percent cell count reference ranges are not reported, since discordance with absolute values may lead to misinterpretation of CBC data. Current Interpretive Data was last revised on 2017. Testing performed by: [address] [address] Basophil pct 0.4 % [facility] Comment: Interpretive Data Percent cell count reference ranges are not reported, since discordance with absolute values may lead to misinterpretation of CBC data. Current Interpretive Data was last revised on 2017. Testing performed by: [address] [address] Blood 11/12/2024 9:15 AM CDT 11/12/2024 9:36 AM CDT Matteo Amaya MD LAB BLOOD ORDERABLES Final Re sult Performing Organization Address [facility] de Phone Number [facility] [address] [facility] [place] [address] * (ABNORMAL) Iron profile w/ IBC (11/12/2024 9:15 AM CDT) Pathologist [facility] Iron 8(L) 35 - 145 mcg/dL Comment:Testing performed by : [address] [address] TIBC 294 250 - 400 mcg/dL AVRIL Comment:Testing performed by : [address] [address] Transferrin saturation 3(L) 20 - 50 % AVRIL Comment:Testing performed by : [address] [address] Blood 11/12/2024 9:15 AM CDT 11/12/2024 9:36 AM CDT Matteo Amaya MD LAB BLOOD ORDERABLES Final Re sult Performing Organization Address [facility] de Phone Number [facility] [address] [facility] [employer] [place] [address] * (ABNORMAL) CBC with auto differential (11/12/2024 9:15 AM CDT) Pathologist [facility] WBC 12.49(H) 3.80 - 9.90 K/cumm Comment:Testing performed by : [address] [address] Hgb 8.3(L) 11.9 - 15.5 g/dL AVRIL Comment:Testing performed by : [address] [address] Hct 28.4(L) 35.6 - 45.5 % AVRIL Comment:Testing performed by : [address] [address] Plt 230 150 - 400 K/cumm AVRIL Comment:Testing performed by : [address] [address] MPV 10.1 9.1 - 12.3 fL AVRIL Comment:Testing performed by : [address], [address] RBC 3.56(L) 3.90 - 5.20 M/cumm AVRIL Comment:Testing performed by : [address] [address] MCV 79.8(L) 81.3 - 96.4 fL AVRIL Comment:Testing performed by : [address] [address] MCH 23.3(L) 27.1 - 33.3 pg AVRIL Comment:Testing performed by : [address] [address] MCHC 29.2(L) 32.3 - 35.7 g/dL AVRIL Comment:Testing performed by : [address], [address] RDW CV 17.8(H) 11.1 - 14.9 % AVRIL Comment:Testing performed by : [address], [address] RDW SD 51.8(H) 35.7 - 48.1 fL AVRIL Comment:Testing performed by : [address] [address] NRBC abs 0.00 0.00 - 0.01 K/cumm AVRIL Comment:Testing performed by : [address], [address] Blood 11/12/2024 9:15 AM CDT 11/12/2024 9:36 AM CDT us Matteo Amaya MD LAB BLOOD ORDERABLES Final Re sult Performing Organization Address [facility] Co de Phone Number JOHN[address] [address] * (ABNORMAL) Protime-INR (11/12/2024 9:15 AM CDT) PT 29.4(H) 12.0 - 14.6 sec Comment: Ref Range High Testing performed by: [address] [address] INR 2.8(H) 0.9 - 1.2 [facility] Comment: Ref Range High Interpretive data Oral anticoagulant therapeutic ranges: Venous thromboembolism prophylaxis or treatment: 2.0-3.0 CARDIOLOGY Standard range: 2.0-3.0 High-intensity range: 2.5-3.5 Refer to indication-specific guidelines for appropriate target ranges for prosthetic heart valve replacement. Current interpretive data was last revised on 2019. Testing performed by: [address] [address] Blood 11/12/2024 9:15 AM CDT 11/12/2024 9:36 AM CDT Osiris Kumari MD LAB BLOOD ORDERABLES Fin al Result Performing Organization Address [facility] de Phone Number [address] [address] * (ABNORMAL) Lactate dehydrogenase (LD) (11/12/2024 9:15 AM CDT) Lactate dehydrogenase (LDH) 598(H) 100 - 250 Units/L Comment:Testing performed by : [address] [address] Blood 11/12/2024 9:15 AM CDT 11/12/2024 9:36 AM CDT Matteo Amaya MD LAB BLOOD ORDERABLES Final Re sult Performing Organization Address [facility] Co de Phone Number JOHN[address] [address] * Folate (11/12/2024 9:15 AM CDT) Pathologist [facility] Folic acid 11.6 >=5.0 ng/mL Comment:Testing performed by : [address] [address] Blood 11/12/2024 9:15 AM CDT 11/12/2024 9:36 AM CDT Matteo Amaya MD LAB BLOOD ORDERABLES Final Re sult Performing Organization Address [facility] Co de Phone Number JOHN[address] [address] * (ABNORMAL) Vitamin B12 (11/12/2024 9:15 AM CDT) [facility] Vitamin B12 225(L) 230 - 1,250 pg/mL Comment:Testing performed by : [address] [address] Blood 11/12/2024 9:15 AM CDT 11/12/2024 9:36 AM CDT Matteo Amaya MD LAB BLOOD ORDERABLES Final Re sult Performing Organization Address [facility] Co de Phone Number JOHN[address] [address] * Creatine kinase (CK), total (11/12/2024 9:15 AM CDT) [facility] CK 89 30 - 200 Units/L Comment:Testing performed by : [address] [address] Blood 11/12/2024 9:15 AM CDT 11/12/2024 9:36 AM CDT Matteo Amaya MD LAB BLOOD ORDERABLES Final Re sult Performing Organization Address City/[facility]/ZIP Co de Phone Number AVRIL [address] [facility] Department [place] [address] * (ABNORMAL) Comprehensive metabolic panel (11/12/2024 9:15 AM CDT) Sodium 135 135 - 145 mmol/L Comment:Testing performed by : [facility], [address] [place] [address]., [address] Potassium, pl 4.4 3.3 - 4.9 mmol/L AVRIL Comment:Testing performed by : [address], [place]., [address] Chloride 101 97 - 110 mmol/L AVRIL Comment:Testing performed by : [address], [place]., [address] CO2 25 22 - 32 mmol/L AVRIL Comment:Testing performed by : [address], [place]., [address] Anion gap 9 2 - 15 mmol/L AVRIL Comment:Testing performed by : [address] [address] BUN 16 6 - 25 mg/dL AVRIL Comment:Testing performed by : [address], [place]., [address] Creatinine 1.11(H) 0.60 - 1.10 mg/dL AVRIL Comment:Testing performed by : [address] [address] Glucose 250(H) 70 - 199 mg/dL AVRIL [...] was last revised 2022. Testing performed by: [address] [address] Calcium 8.3(L) 8.5 - 10.3 mg/dL AVRIL Comment:Testing performed by : [address] [address] Bilirubin, total 0.2 0.1 - 1.2 mg/dL AVRIL Comment:Testing performed by : [address] [address] Protein, pl 6.7 6.5 - 8.5 g/dL AVRIL Comment:Testing performed by : [address] [address] Albumin 2.9(L) 3.5 - 5.0 g/dL AVRIL Comment:Testing performed by : [address] [address] Alk phos 115 40 - 130 Units/L AVRIL Comment:Testing performed by : [address] [address] ALT 31 7 - 45 Units/L AVRIL Comment:Testing performed by : [address] [address] AST 38 10 - 45 Units/L AVRIL Comment:Testing performed by : [address] [address] Blood 11/12/2024 9:15 AM CDT 11/12/2024 9:36 AM CDT us Matteo Amaya MD LAB BLOOD ORDERABLES Final Re sult AVRIL 3467 [facility] Department of Laboratories [place], [place] [id number] * POCT glucose (11/12/2024 8:11 AM CDT) [facility] Signature Glucose, POC 135 70 - 199 mg/dL Comment:Testing performed by : [address] [address] Blood 11/12/2024 8:11 AM CDT 11/12/2024 8:11 AM CDT us Osiris Kumari MD LAB POCT ORDERABLES - DE VICE Final Result Performing Organization Address City/[facility]/ZIP Co de Phone Number AVRIL [address] [place] [address] * POCT glucose (11/11/2024 9:29 PM CDT) Glucose, POC 147 70 - 199 mg/dL Comment:Testing performed by : [address] [address] Blood 11/11/2024 9:29 PM CDT 11/11/2024 9:29 PM CDT Osiris Kumari MD LAB POCT ORDERABLES - DE VICE Final Result Performing Organization Address [facility] Co de Phone Number JOHN[address] [place] [address] * (ABNORMAL) Protime-INR (11/11/2024 7:23 PM CDT) PT 27.1(H) 12.0 - 14.6 sec Comment: Ref Range High Testing performed by: [address] [address] INR 2.6(H) 0.9 - 1.2 AVRIL Comment: Ref Range High Interpretive data Oral anticoagulant therapeutic ranges: Venous thromboembolism prophylaxis or treatment: 2.0-3.0 CARDIOLOGY Standard range: 2.0-3.0 High-intensity range: 2.5-3.5 Refer to indication-specific guidelines for appropriate target ranges for prosthetic heart valve replacement. Current interpretive data was last revised on 2019. Testing performed by: [address] [address] Blood 11/11/2024 7:23 PM CDT 11/11/2024 7:38 PM CDT Osiris Kumair MD LAB BLOOD ORDERABLES Fin al Result Performing Organization Address City/[facility]/ZIP Co de Phone Number AVRIL [address] [address] * POCT glucose (11/11/2024 6:21 PM CDT) Glucose, POC 148 70 - 199 mg/dL Comment:Testing performed by : [address] [address] Blood 11/11/2024 6:21 PM CDT 11/11/2024 6:21 PM CDT Osiris Kumari MD LAB POCT ORDERABLES - DE VICE Final Result Performing Organization Address City/[facility]/ZIP Co de Phone Number [address] [address] * POCT glucose (11/11/2024 1:07 PM CDT) Glucose, POC 139 70 - 199 mg/dL Comment:Testing performed by : [address] [address] Blood 11/11/2024 1:07 PM CDT 11/11/2024 1:07 PM CDT Osiris Kumari MD LAB POCT ORDERABLES - DE VICE Final Result Performing Organization Address City/[facility]/ZIP Co de Phone Number [address] [address] * MRI Brain W Contrast (11/11/2024 12:54 [...] Dimitry Carlson M.D. MM: MM Report ID: [id number] Reading Location: [id number] Procedure Note Dimitry Carlson MD - 11/11/2024 [...] Dimitry Carlson M.D. MM: MM Report ID: [id number] Reading Location: [id number] us Craig Yates MD IMG MRI PROCEDURES [...] was last reviewed 2021. Testing performed by: [address] [address] Blood 11/11/2024 3:51 AM CDT 11/11/2024 4:38 AM CDT us Osiris Kumari MD LAB BLOOD ORDERABLES Fin al Result AVRIL 37[address] [facility] Department of Laboratories [place], [place] [id number] * (ABNORMAL) Differential, auto (11/11/2024 3:51 AM CDT) Neutrophil abs 14.01(H) 1.50 - 6.50 K/cumm Comment:Testing performed by : [address] [address] Imm gran abs 0.10 0.00 - 0.10 K/cumm AVRIL VALENTINO Comment:Testing performed by : [address] [address] Lymphocyte abs 2.27 0.80 - 3.30 K/cumm AVRIL Comment:Testing performed by : [address] [address] Monocyte abs 2.02(H) 0.20 - 0.80 K/cumm [place] [employer] [facility] Comment:Testing performed by : [address] [address] Eosinophil abs 0.05 0.00 - 0.50 K/cumm [facility] Comment:Testing performed by : [address], [place]., [address] Basophil abs 0.06 0.00 - 0.10 K/cumm [facility] Comment:Testing performed by : [address] [address] Neutrophil pct 75.7 % [facility] Comment: Interpretive Data Percent cell count reference ranges are not reported, since discordance with absolute values may lead to misinterpretation of CBC data. Current Interpretive Data was last revised on 2017. Testing performed by: [address] [address] Imm gran pct 0.5 % [facility] Comment: Interpretive Data Percent cell count reference ranges are not reported, since discordance with absolute values may lead to misinterpretation of CBC data. Current Interpretive Data was last revised on 2017. Testing performed by: [address] [address] Lymphocyte pct 12.3 % [facility] Comment: Interpretive Data Percent cell count reference ranges are not reported, since discordance with absolute values may lead to misinterpretation of CBC data. Current Interpretive Data was last revised on 2017. Testing performed by: [address] [address] Monocyte pct 10.9 % [facility] Comment: Interpretive Data Percent cell count reference ranges are not reported, since discordance with absolute values may lead to misinterpretation of CBC data. Current Interpretive Data was last revised on 2017. Testing performed by: [address] [address] Eosinophil pct 0.3 % [facility] Comment: Interpretive Data Percent cell count reference ranges are not reported, since discordance with absolute values may lead to misinterpretation of CBC data. Current Interpretive Data was last revised on 2017. Testing performed by: [address] [address] Basophil pct 0.3 % [facility] Comment: Interpretive Data Percent cell count reference ranges are not reported, since discordance with absolute values may lead to misinterpretation of CBC data. Current Interpretive Data was last revised on 2017. Testing performed by: [address] [address] Blood 11/11/2024 3:51 AM CDT 11/11/2024 4:38 AM CDT us Osiris Kumari MD LAB BLOOD ORDERABLES Fin al Result [facility] [address] [facility] Department [place] [address] * (ABNORMAL) CBC with auto differential (11/11/2024 3:51 AM CDT) WBC 18.51(H) 3.80 - 9.90 K/cumm Comment:Testing performed by : [address] [address] Hgb 8.8(L) 11.9 - 15.5 g/dL [facility] Comment:Testing performed by : [address] [address] Hct 29.5(L) 35.6 - 45.5 % [facility] Comment:Testing performed by : [address] [address] Plt 243 150 - 400 K/cumm [facility] Comment:Testing performed by : [address] [address] MPV 10.0 9.1 - 12.3 fL [facility] Comment:Testing performed by : [address] [address] RBC 3.75(L) 3.90 - 5.20 M/cumm [facility] Comment:Testing performed by : [address] [address] MCV 78.7(L) 81.3 - 96.4 fL [facility] Comment:Testing performed by : [address] [address] MCH 23.5(L) 27.1 - 33.3 pg [facility] Comment:Testing performed by : [address] [address] MCHC 29.8(L) 32.3 - 35.7 g/dL [facility] Comment:Testing performed by : [address] [address] RDW CV 18.2(H) 11.1 - 14.9 % [facility] Comment:Testing performed by : [address] [address] RDW SD 51.8(H) 35.7 - 48.1 fL [facility] Comment:Testing performed by : [address] [address] NRBC abs 0.00 0.00 - 0.01 K/cumm [facility] Comment:Testing performed by : [address] [address] Blood 11/11/2024 3:51 AM CDT 11/11/2024 4:38 AM CDT Osiris Kumari MD LAB BLOOD ORDERABLES Fin al Result [facility] Department of Laboratories [place], [place] [id number] * (ABNORMAL) Comprehensive metabolic panel (11/11/2024 3:51 AM CDT) Pathologist [facility] [place] Sodium 137 135 - 145 mmol/L Comment:Testing performed by : [address] [address] Potassium, pl 4.7 3.3 - 4.9 mmol/L [facility]INO Comment:Testing performed by : [address] [address] Chloride 102 97 - 110 mmol/L [facility] Comment:Testing performed by : [address] [address] CO2 27 22 - 32 mmol/L [facility] Comment:Testing performed by : [address] [address] Anion gap 8 2 - 15 mmol/L [facility] Comment:Testing performed by : [address] [address] BUN 13 6 - 25 mg/dL [facility] Comment:Testing performed by : [address] [address] Creatinine 1.15(H) 0.60 - 1.10 mg/dL [facility] Comment:Testing performed by : [address] [address] Glucose 118 70 - 199 mg/dL [facility] [...] was last revised 2022. Testing performed by: [address] [address] Calcium 8.7 8.5 - 10.3 mg/dL [facility] Comment:Testing performed by : [address] [address] Bilirubin, total 0.4 0.1 - 1.2 mg/dL [facility] Comment:Testing performed by : [address] [address] Protein, pl 7.0 6.5 - 8.5 g/dL [facility] Comment:Testing performed by : [address] [address] Albumin 3.3(L) 3.5 - 5.0 g/dL [facility] Comment:Testing performed by : [address] [address] Alk phos 128 40 - 130 Units/L [facility] Comment:Testing performed by : [address] [place] [address] ALT 47(H) 7 - 45 Units/L [facility] Comment:Testing performed by : [address] [address] AST 81(H) 10 - 45 Units/L [facility] Comment:Testing performed by : [address] [address] Blood 11/11/2024 3:51 AM CDT 11/11/2024 4:38 AM CDT Osiris Kumari MD LAB BLOOD ORDERABLES Fin al Result Performing Organization Address [facility] Co de Phone Number [address] [place] [address] * POCT glucose (11/10/2024 8:05 PM CDT) Glucose, POC 174 70 - 199 mg/dL Comment:Testing performed by : [address] [address] Blood 11/10/2024 8:05 PM CDT 11/10/2024 8:05 PM CDT Osiris Kumari MD LAB POCT ORDERABLES - DE VICE Final Result Performing Organization Address [facility] de Phone Number [address] [address] * POCT glucose (11/10/2024 5:37 PM CDT) Glucose, POC 134 70 - 199 mg/dL Comment:Testing performed by : [address] [address] Blood 11/10/2024 5:37 PM CDT 11/10/2024 5:37 PM CDT Osiris Kumari MD LAB POCT ORDERABLES - DE VICE Final Result Performing Organization Address [facility] Co de Phone Number AV[facility]IL MH [address] [facility] Department [place] [address] * MRI Brain WO Contrast (11/10/2024 2:51 [...] Kj Mary M.D. MZ: ANA Report ID: [id number] Reading Location: [id number] Procedure Note Kj Mary MD - 11/10/2024 EXAM DESCRIPTION: MRI BRAIN WO CONTRAST REASON FOR STUDY: Neuro deficit, acute, stroke suspected Right side abdominal pain and nausea x 1 day. No known injury. Bestobtained images due to patient motion. Surgical Hx: hysterectomy andcholecystectomy TECHNIQUE: Multiplanar imaging includes non-contrasted T1, T2, FLAIR, and diffusion with ADC map sequences. Additional sequence(s) sensitive xoompark. Images stored on PACS. COMPARISON: 11/10/2024. FINDINGS: [...] Kj Mary M.D. MZ: ANA Report ID: [id number] Reading Location: [place] [address] Pathedy Kumari MD [facility] MRI PROCEDURES Final Result * CTA Head [...] or acute fracture is seen. INTRACRANIAL VESSELS ASSINIBOINE AND [place]BES OF MARTINES: There is occlusion of a [...] Kj Mary M.D. MZ: ANA Report ID: [id number] Reading Location: [id number] Procedure Note Kj Mary MD - 11/10/2024 [...] or acute fracture is seen. INTRACRANIAL VESSELS ASSINIBOINE AND [place] OF MARTINES: There is occlusion of a [...] 1cm. INCLUDED LUNGS: There is pleural-parenchymal scarring. Tpws-ax-ridptffbaj are redemonstrated, compatible with an infectious or [...] Kj Mary M.D. MZ: MZ Report ID: [id number] Reading Location: [place] [address] Pathedy Kumari MD IMG CT PROCEDURES Final [...] to Dr. Kumari transferring at 12:49 p.m. MACHINE BENDER on 11/10/2024. THIS IS AN ELECTRONICALLY VERIFIED FINAL REPORT 11/10/2024 12:52 PM - Electronically signed by Rick Cabrera M.D. AT: AT Report ID: [id number] Reading Location: [id number] Procedure Note Rick Cabrera MD - 11/10/2024 [...] to Dr. Kumari transferring at 12:49 p.m. MACHINE BENDER on 11/10/2024. THIS IS AN ELECTRONICALLY VERIFIED FINAL REPORT 11/10/2024 12:52 PM - Electronically signed by Rick Cabrera M.D. AT: AT Report ID: [id number] Reading Location: [id number] Osiris Kumari MD IMG CT PROCEDURES Final Result * POCT glucose (11/10/2024 11:57 AM CDT) Glucose, POC 132 70 - 199 mg/dL Comment:Testing performed by : [address] [address] Blood 11/10/2024 11:5 7 AM CDT 11/10/2024 11:57 AM CDT Osiris Kumari MD LAB POCT ORDERABLES - DE VICE Final Result [facility] Department [place] [address] * (ABNORMAL) eGFR (11/10/2024 4:03 AM CDT) Pathologist [facility] [place] eGFR 53(L) >=60 mL/min/1. 73 m2 Comment: [...] was last reviewed 2021. Testing performed by: [address] [address] Blood 11/10/2024 4:03 AM CDT 11/10/2024 4:39 AM CDT Douglas Smith MD LAB BLOOD ORDERABLES Final Result [facility] 0753 [facility] Department [place] [address] * (ABNORMAL) Differential, auto (11/10/2024 4:03 AM CDT) Neutrophil abs 7.69(H) 1.50 - 6.50 K/cumm Comment:Testing performed by : [address] [address] Imm gran abs 0.05 0.00 - 0.10 K/cumm [facility] Comment:Testing performed by : [address] [address] Lymphocyte abs 1.85 0.80 - 3.30 K/cumm [facility] Comment:Testing performed by : [address] [address] Monocyte abs 1.08(H) 0.20 - 0.80 K/cumm [facility] Comment:Testing performed by : [address] [address] Eosinophil abs 0.06 0.00 - 0.50 K/cumm [facility] Comment:Testing performed by : [address] [address] Basophil abs 0.04 0.00 - 0.10 K/cumm [facility] Comment:Testing performed by : [address] [address] Neutrophil pct 71.3 % [facility] Comment: Interpretive Data Percent cell count reference ranges are not reported, since discordance with absolute values may lead to misinterpretation of CBC data. Current Interpretive Data was last revised on 2017. Testing performed by: [address] [address] Imm gran pct 0.5 % [facility] Comment: Interpretive Data Percent cell count reference ranges are not reported, since discordance with absolute values may lead to misinterpretation of CBC data. Current Interpretive Data was last revised on 2017. Testing performed by: [address] [address] Lymphocyte pct 17.2 % [facility] Comment: Interpretive Data Percent cell count reference ranges are not reported, since discordance with absolute values may lead to misinterpretation of CBC data. Current Interpretive Data was last revised on 2017. Testing performed by: [address] [address] Monocyte pct 10.0 % [facility] Comment: Interpretive Data Percent cell count reference ranges are not reported, since discordance with absolute values may lead to misinterpretation of CBC data. Current Interpretive Data was last revised on 2017. Testing performed by: [address] [address] Eosinophil pct 0.6 % [facility] Comment: Interpretive Data Percent cell count reference ranges are not reported, since discordance with absolute values may lead to misinterpretation of CBC data. Current Interpretive Data was last revised on 2017. Testing performed by: [address] [address] Basophil pct 0.4 % [facility] Comment: Interpretive Data Percent cell count reference ranges are not reported, since discordance with absolute values may lead to misinterpretation of CBC data. Current Interpretive Data was last revised on 2017. Testing performed by: [address] [address] Blood 11/10/2024 4:03 AM CDT 11/10/2024 4:40 AM CDT Douglas Smith MD LAB BLOOD ORDERABLES Final Result [facility] [address] [facility] Department [place] [address] * Thyroid Function [place] (11/10/2024 4:03 AM CDT) TSH 3.45 0.30 - 4.20 mcIUnit/mL Comment:Testing performed by : [address] [address] Blood 11/10/2024 4:03 AM CDT 11/10/2024 4:39 AM CDT Douglas Smith MD LAB BLOOD ORDERABLES Final Result [facility] 83[address] [facility] Department [place] [address] * (ABNORMAL) CBC with auto differential (11/10/2024 4:03 AM CDT) WBC 10.77(H) 3.80 - 9.90 K/cumm Comment:Testing performed by : [address] [address] Hgb 9.1(L) 11.9 - 15.5 g/dL [facility] Comment:Testing performed by : [address] [address] Hct 30.8(L) 35.6 - 45.5 % [facility] Comment:Testing performed by : [address] [address] Plt 281 150 - 400 K/cumm [facility] Comment:Testing performed by : [address] [address] MPV 9.6 9.1 - 12.3 fL [facility] Comment:Testing performed by : [address] [address] RBC 3.93 3.90 - 5.20 M/cumm [facility] Comment:Testing performed by : [address] [address] MCV 78.4(L) 81.3 - 96.4 fL [facility] Comment:Testing performed by : [address] [address] MCH 23.2(L) 27.1 - 33.3 pg [facility] VALENTINO Comment:Testing performed by : [address] [address] MCHC 29.5(L) 32.3 - 35.7 g/dL [facility] Comment:Testing performed by : [address] [address] RDW CV 17.8(H) 11.1 - 14.9 % [facility] VALENTINO Comment:Testing performed by : [address] [address] RDW SD 50.5(H) 35.7 - 48.1 fL [facility] VALENTINO Comment:Testing performed by : [address] [address] NRBC abs 0.00 0.00 - 0.01 K/cumm [facility]INO Comment:Testing performed by : [address] [address] Blood 11/10/2024 4:03 AM CDT 11/10/2024 4:40 AM CDT Dogulas Smith MD LAB BLOOD ORDERABLES Final Result Performing Organization Address City/[facility] Co de Phone Number AVRIL [address] Department [place] [address] * (ABNORMAL) Hemoglobin A1c (11/10/2024 4:03 AM CDT) [facility] Hgb A1C 6.0(H) 4.0 - 5.6 % Comment:Testing performed by : [address] [address] Estimated Average Glucose 126 mg/dL [facility] Comment: The ADA recommends reporting an estimated Average Glucose (eAG) with all Hemoglobin A1c results using the equation derived from a study of 507 normal and diabetic adults. Minority populations were underrepresented and children were not included. (Diabetes Care 31:6387-2565, 2008). The eAG is not equivalent to a fasting glucose. Testing performed by: [address] [address] Blood 11/10/2024 4:03 AM CDT 11/10/2024 4:40 AM CDT Douglas Smith MD LAB BLOOD ORDERABLES Final Result Performing Organization Address City/[facility] Co de Phone Number [facility] [address] [facility] Department [place] [address] * (ABNORMAL) Comprehensive metabolic panel (11/10/2024 4:03 AM CDT) Sodium 139 135 - 145 mmol/L Comment:Testing performed by : [address] [address] Potassium, pl 3.7 3.3 - 4.9 mmol/L [facility] Comment:Testing performed by : [address] [address] Chloride 102 97 - 110 mmol/L [facility] Comment:Testing performed by : [address] [address] CO2 28 22 - 32 mmol/L [facility] Comment:Testing performed by : [address] [address] Anion gap 9 2 - 15 mmol/L [facility] Comment:Testing performed by : [address] [address] BUN 16 6 - 25 mg/dL [facility] Comment:Testing performed by : [address] [address] Creatinine 1.06 0.60 - 1.10 mg/dL [facility] Comment:Testing performed by : [address] [address] Glucose 112 70 - 199 mg/dL AVRIL [...] was last revised 2022. Testing performed by: [address] [address] Calcium 9.0 8.5 - 10.3 mg/dL [facility] Comment:Testing performed by : [address] [address] Bilirubin, total 0.5 0.1 - 1.2 mg/dL [facility] Comment:Testing performed by : [address] [address] Protein, pl 7.3 6.5 - 8.5 g/dL [facility] Comment:Testing performed by : [address] [address] Albumin 3.5 3.5 - 5.0 g/dL [facility] Comment:Testing performed by : [address] [address] Alk phos 157(H) 40 - 130 Units/L [facility] Comment:Testing performed by : [address] [address] ALT 66(H) 7 - 45 Units/L [facility] Comment:Testing performed by : [address] [address] AST 147(H) 10 - 45 Units/L [facility] Comment:Testing performed by : [address] [address] Blood 11/10/2024 4:03 AM CDT 11/10/2024 4:39 AM CDT Douglas Smith MD LAB BLOOD ORDERABLES Final Result Performing Organization Address City/State/[facility] Phone Number [facility] [address] [facility] Department of Laboratories [place], [place] [id number] * CT Chest WO Contrast (11/09/2024 8:19 [...] by Uzma Enrique M.D. SN: Report ID: [id number] Reading Location: [id number] Procedure Note Uzma Enrique MD - 11/09/2024 [...] by Uzma Enrique M.D. SN: Report ID: [id number] Reading Location: [id number] Douglas Smith MD IMG CT PROCEDURES Fi nal Result * Sepsis Lactate w/ Reflex (11/09/2024 7:49 PM CDT) Sepsis Lactate 1.5 0.7 - 2.0 mmol/L Comment:Testing performed by : [facility], [address] [place] [address], [place]., [address] Blood 11/09/2024 7:49 PM CDT 11/09/2024 7:53 PM CDT us Simeon Morrow MD LAB BLOOD ORDERABLES Final Re sult Performing Organization Address City/[facility]/ZIP Co de Phone Number AVRIL VALENTINO [address] [facility] [employer] [place] [address] * Blood culture Blood (11/09/2024 7:49 PM CDT) Report Final Report: No growth Comment:Testing performed by : [facility], [address] [place]., [address] Blood 11/09/2024 7:49 PM CDT 11/10/2024 1:23 AM CDT Narrative [facility] 11/14/2024 7:00 AM CDT Collection->Peripheral 1. Blood [...] performance characteristics have been verified by the [facility] Microbiology Laboratory. For questions about this culture, contact the Microbiology Laboratory at [phone]. Interpretive data was last revised on 24. Simeon Morrow MD LAB MICROBIOLOGY - GENERAL OR DERABLES Final Result Performing Organization Address City/[facility]/ZIP Co de Phone Number AV[facility]IL VALENTINO [address] [facility] [place] [address] * Blood culture Blood (11/09/2024 7:49 PM CDT) Report Final Report: No growth Comment:Testing performed by : [facility], [address] [place]., [address] Blood 11/09/2024 7:49 PM CDT 11/10/2024 1:23 [...] performance characteristics have been verified by the [facility]. For questions about this culture, contact the Microbiology Laboratory at [phone]. Interpretive data was last revised on 24. Simeon Morrow MD LAB MICROBIOLOGY - GENERAL OR DERABLES Final Result AVRIL 1927 [facility] Department [place] [address] * Potassium (11/09/2024 4:34 PM CDT) Potassium, pl 4.8 3.3 - 4.9 mmol/L Comment: Hemolyzed; Potassium value may be falsely elevated by as much as 1.0 mmol/L. Suggest redraw and reanalysis. Testing performed by: [facility], [address] [place] [address], [place]., [address] Blood 11/09/2024 4:34 PM CDT 11/09/2024 4:35 PM CDT us Simeon Morrow MD LAB BLOOD ORDERABLES Final Re sult [facility] [address] [facility] Department [place] [address] * CT Abdomen Pelvis W [...] Rick Cabrera M.D. AT: AT Report ID: [id number] Reading Location: [place] [address] Procedure Note Rick Cabrera MD - 11/09/2024 [...] Rick Cabrera M.D. AT: AT Report ID: [id number] Reading Location: [id number] us Simeon Morrow MD IMG CT PROCEDURES Final Resul t * ECG 12 lead (11/09/2024 3:49 PM CDT) Ventricular Rate EKG/Min 71 BPM [facility] Atrial Rate 375 BPM [facility] QRS-Interval (MSEC) 98 ms [facility] QT-Interval (MSEC) 402 ms [facility] QTc 436 ms [facility] R [place] -51 degrees [facility] T [place] 7 degrees [facility] Diagnosis Atrial fibrillation Left axis deviation Low voltage QRS Septal infarct , age undetermined Possible Lateral infarct , age undetermined Abnormal ECG When compared with ECG of 10-SEP-2001 13:15, Atrial fibrillation has replaced Sinus rhythm QRS duration has increased Septal infarct is now Present Borderline criteria for Lateral infarct are now Present Confirmed by PRADEEP MCCAIN M.D. ([id number]) on 11/11/2024 10:20:36 PM [facility] 11/09/2024 3:49 PM CDT 11/11/2024 10:20 PM CDT us Simeon Morrow MD ECG ORDERABLES Final Result [facility] * (ABNORMAL) Urinalysis reflex to microscopic and culture Urine (11/09/2024 2:37 PM CDT) Color, ur Yellow Yellow Comment:Testing performed by : [address] [address] Clarity, ur Clear Clear AVRIL Comment:Testing performed by : [address] [address] Specific gravity, ur 1.023 1.003 - 1.030 AVRIL Comment:Testing performed by : [address] [address] pH, urine 7.0 AVRIL Comment: Interpretive Data U rine pH is affected by diet, medications, systemic acid-base disturbances, and renal tubular function. pH may affect urinary stone formation. For example, urine pH below 6.0 may help reduce the tendency for calcium phosphate stones and pH greater than 6.0 may reduce the tendency for uric acid stone formation. Source: [place] [employer] Current Interpretive Data was last revised on 2017 Testing performed by: [address] [address] Protein, ur ql Trace(A) Negative AVRIL Comment:Testing performed by : [address] [address] Glucose, ur ql Negative Negative AV[facility] Comment:Testing performed by : [address] [address] Ketones, ur Negative Negative AV[facility] Comment:Testing performed by : [address] [address] Bilirubin, ur Negative Negative AV[facility]IL Comment:Testing performed by : [address] [address] Blood, ur Negative Negative AVRIL Comment:Testing performed by : [address] [address] Urobilinogen, ur 2.0(A) <2.0 mg/dL AV[facility]IL VALENTINO Comment:Testing performed by : [address] [address] Nitrite, ur Negative Negative AVRIL Comment:Testing performed by : [address] [address] Leukocyte esterase, ur 1+(A) Negative AVRIL Comment:Testing performed by : [address] [address] UA reflex comment Reflex to microscopic UA will be performed. AVRIL Comment:Testing performed by : [address], [place]., [address] Urine 11/09/2024 2:37 PM CDT 11/09/2024 2:41 PM CDT us Simeon Morrow MD LAB MICROBIOLOGY - GENERAL OR DERABLES Final Result Performing Organization Address City/State/[facility] Co de Phone Number AV[facility]IL [facility]5 [facility] Department [place] [address] * (ABNORMAL) Urinalysis, microscopic only (11/09/2024 2:37 PM CDT) WBC, ur 0-5 0 - 5 /HPF Comment:Testing performed by : [address] [address] RBC, ur 3-5(A) 0 - 2 /HPF AVRIL VALENTINO Comment:Testing performed by : [address] [address] Epithelial cells, squamous, ur >50(A) 0 - 5 /HPF AVRIL VALENTINO Comment:Testing performed by : [address] [address] Bacteria, ur Trace(A) AVRIL Comment:Testing performed by : [address] [address] Mucous, ur Present(A) AVRIL VALENTINO Comment:Testing performed by : [address] [address] Culture Reflex Comment Reflex conditions for urine culture (WBC >10) not met. AVRIL VALENTINO Comment:Testing performed by : [facility], [address] [place] [address]., [address] Urine 11/09/2024 2:37 PM CDT 11/09/2024 2:41 PM CDT Simeon Morrow MD LAB URINE ORDERABLES Final Re sult Performing Organization Address [facility] Co de Phone Number AVRIL [address] [facility] [place] [address] * (ABNORMAL) eGFR (11/09/2024 2:03 PM CDT) [...] was last reviewed 2021. Testing performed by: [facility], [address] [place] [address]., [address] Blood 11/09/2024 2:03 PM CDT 11/09/2024 2:06 PM CDT Simeon Morrow MD LAB BLOOD ORDERABLES Final Re sult Performing Organization Address City/[facility]/ZIP Co de Phone Number [facility] [place] [address] * (ABNORMAL) Differential, auto (11/09/2024 2:03 PM CDT) Neutrophil abs 8.56(H) 1.50 - 6.50 K/cumm Comment:Testing performed by : [address] [address] Imm gran abs 0.06 0.00 - 0.10 K/cumm [facility] Comment:Testing performed by : [address] [address] Lymphocyte abs 1.82 0.80 - 3.30 K/cumm [facility] Comment:Testing performed by : [address] [address] Monocyte abs 0.59 0.20 - 0.80 K/cumm [facility] Comment:Testing performed by : [address] [address] Eosinophil abs 0.06 0.00 - 0.50 K/cumm [facility] Comment:Testing performed by : [address] [address] Basophil abs 0.05 0.00 - 0.10 K/cumm [facility] Comment:Testing performed by : [address] [address] Neutrophil pct 77.0 % [facility] Comment: Interpretive Data Percent cell count reference ranges are not reported, since discordance with absolute values may lead to misinterpretation of CBC data. Current Interpretive Data was last revised on 2017. Testing performed by: [address] [address] Imm gran pct 0.5 % [facility] Comment: Interpretive Data Percent cell count reference ranges are not reported, since discordance with absolute values may lead to misinterpretation of CBC data. Current Interpretive Data was last revised on 2017. Testing performed by: [address] [address] Lymphocyte pct 16.3 % [facility] Comment: Interpretive Data Percent cell count reference ranges are not reported, since discordance with absolute values may lead to misinterpretation of CBC data. Current Interpretive Data was last revised on 2017. Testing performed by: [address] [address] Monocyte pct 5.3 % [facility] Comment: Interpretive Data Percent cell count reference ranges are not reported, since discordance with absolute values may lead to misinterpretation of CBC data. Current Interpretive Data was last revised on 2017. Testing performed by: [address] [address] Eosinophil pct 0.5 % [facility] Comment: Interpretive Data Percent cell count reference ranges are not reported, since discordance with absolute values may lead to misinterpretation of CBC data. Current Interpretive Data was last revised on 2017. Testing performed by: [address] [address] Basophil pct 0.4 % [facility] Comment: Interpretive Data Percent cell count reference ranges are not reported, since discordance with absolute values may lead to misinterpretation of CBC data. Current Interpretive Data was last revised on 2017. Testing performed by: [address] [address] Blood 11/09/2024 2:03 PM CDT 11/09/2024 2:06 PM CDT us Simeon Morrow MD LAB BLOOD ORDERABLES Final Re sult [facility] [address] [facility] [place] [address] * (ABNORMAL) CBC with auto differential (11/09/2024 2:03 PM CDT) WBC 11.14(H) 3.80 - 9.90 K/cumm Comment:Testing performed by : [address] [address] Hgb 9.8(L) 11.9 - 15.5 g/dL [facility] Comment:Testing performed by : [address] [address] Hct 32.4(L) 35.6 - 45.5 % [facility] Comment:Testing performed by : [address] [address] Plt 288 150 - 400 K/cumm [facility] Comment:Testing performed by : [address] [address] MPV 9.5 9.1 - 12.3 fL [facility] Comment:Testing performed by : [address] [address] RBC 4.16 3.90 - 5.20 M/cumm [facility] Comment:Testing performed by : [address] [address] MCV 77.9(L) 81.3 - 96.4 fL [facility] Comment:Testing performed by : [address] [address] MCH 23.6(L) 27.1 - 33.3 pg [facility] Comment:Testing performed by : [address] [address] MCHC 30.2(L) 32.3 - 35.7 g/dL [facility] Comment:Testing performed by : [address] [address] RDW CV 17.9(H) 11.1 - 14.9 % [facility] Comment:Testing performed by : [address] [address] RDW SD 50.2(H) 35.7 - 48.1 fL [facility] Comment:Testing performed by : [address] [address] NRBC abs 0.00 0.00 - 0.01 K/cumm [facility] Comment:Testing performed by : [address] [address] Blood Venous blood specimen / Unknown 11/09/2024 2:03 PM CDT 11/09/2024 2:06 PM CDT us Simeon Morrow MD LAB BLOOD ORDERABLES Final Re sult [facility] 7714 [facility] Department [place] [address] * Lipase (11/09/2024 2:03 PM CDT) Lipase 63 10 - 99 Units/L Comment:Testing performed by : [address] [address] Blood Venous blood specimen / Unknown 11/09/2024 2:03 PM CDT 11/09/2024 2:06 PM CDT us Simeon Morrow MD LAB BLOOD ORDERABLES Final Re sult [facility] [address] [facility] Department [place] [address] * (ABNORMAL) Comprehensive metabolic panel (11/09/2024 2:03 PM CDT) Pathologist [facility] Sodium 134(L) 135 - 145 mmol/L Comment:Testing performed by : [address] [address] Potassium, pl 5.5(H) 3.3 - 4.9 mmol/L [facility] Comment: Hemolyzed; Potassium value may be falsely elevated by as much as 1.0 mmol/L. Suggest redraw and reanalysis. Testing performed by: [address] [address] Chloride 100 97 - 110 mmol/L [facility] Comment:Testing performed by : [address] [address] CO2 25 22 - 32 mmol/L [facility] Comment:Testing performed by : [address] [address] Anion gap 9 2 - 15 mmol/L [facility] Comment:Testing performed by : [address] [address] BUN 19 6 - 25 mg/dL [facility] Comment:Testing performed by : [address] [address] Creatinine 1.00 0.60 - 1.10 mg/dL [facility] Comment:Testing performed by : [address] [address] Glucose 134 70 - 199 mg/dL [facility] [...] was last revised 2022. Testing performed by: [address] [address] Calcium 8.9 8.5 - 10.3 mg/dL [facility] Comment:Testing performed by : [address] [address] Bilirubin, total 0.4 0.1 - 1.2 mg/dL [facility] Comment:Testing performed by : [address] [address] Protein, pl 8.2 6.5 - 8.5 g/dL [facility] Comment:Testing performed by : [address] [address] Albumin 3.8 3.5 - 5.0 g/dL [facility] Comment:Testing performed by : [address] [address] Alk phos 138(H) 40 - 130 Units/L [facility] Comment:Testing performed by : [address] [address] ALT 13 7 - 45 Units/L [facility] Comment:Testing performed by : [address] [address] AST 32 10 - 45 Units/L [facility] Comment: Hemolyzed; result may be falsely elevated Testing performed by: [address] [address] Blood 11/09/2024 2:03 PM CDT 11/09/2024 2:06 PM CDT us Simeon Morrow MD LAB BLOOD ORDERABLES Final Re sult [facility] 2904 [facility] Department [place] [address] * POCT lipid panel (02/08/2023 [...] Most Recently Relevant to Health Maintenance Insurance [facility] MEDICARE ADVANTAGE Advance Directives For more information, please contact: [phone] * LIMITED - No CPR (Latest Code [...] 10:08 PM 11/11/2024 12:26 PM Care Teams [place] Ne[employer] Wh[employer] Relationship Specialty Start Date End Date Francisco Javier Scott DO PCP - General Internal Medicine 02/15/23
--- OUTSIDE RECORDS SUMMARY | 2024-12-04 12:04 | XMS_ITS | Encounter Summary ---
Author Organization [facility] Healthcare Address [address] [place] [address] Care Team Providers Care Cop Name Role Phone Francisco Javier Scott DO Primary Care Provider [phone] Encounter Details Date Type Department Care Team (Late st Contact Info) Description 11/29/2024 Telephone [facility] Medical Group Cardiology [address] [place] [address] Rick Vazquez MD [address] [facility] [address] [facility], [address] [place] [address] Social History Tobacco Use Types Packs/Day Years Used Date Smoking Tobacco: Never Smokeless Tobacco: Never [facility] Utilities Answer Date Recorded In the past 12 months has [employer], gas, oil, or water [employer] threatened to shut off services in your [...] week 11/12/2024 How often do you attend [facility] or religion services? Never 11/12/2024 Do you belong to any clubs o r organizations such as mosque groups, unions, fraternal or athletic groups, or [...] any time in the past [facility], were you homeless or living in a halfway (including now)? No 11/12/2024 Personal Safety Answer Date Recorded Have you ever been in or are you currently in a harmful physical or emotional relationship or is someone making you feel afraid or unsafe? Denies 11/09/2024 Comments Unknown Sex and Gender Information Value Date Recorded Sex Assigned at Not on file Legal Sex Female 4:58 AM [employer] Gender Identity Not on file Sexual Orientation [...] got her INR done this am around [id number]. She is wondering what dosage of Warfarin to take tonight. [phone] is the number to call back * [...] PM CDT Pt calling for warfarin dosage [phone] * Telephone Encounter - Yolande Gonsales RN [...] on filedocumented in this encounter Care Teams Cop Relationship Specialty Start Date End Date Francisco Javier Scott DO PCP - General Internal Medicine 02/15/23 documented as of this encounter
--- NOTE | 2024-12-04 12:13 | ED_ITS ---
HPI - General Adult General Chief complaint: Recheck/Abnormal Lab/Rx Stated complaint: requesting vitamin K shot Time Seen by Provider: 12/04/24 09:48 History of Present Illness HPI narrative: Patient is a 79-year-old female who presents ER with concerns for elevated INR. 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 She takes Coumadin 2 mg daily. No fevers or chills or sweats. No chest pain. No fall. No head injury. Denies any dark black stools. Related Data Allergies Allergy/AdvReac Type Severity Reaction Status Date / Time Penicillins Allergy Unknown RASH Verified 12/15/17 08:24 Review of Systems 2 Review of Systems: All systems reviewed & are unremarkable except as noted in HPI and below Constitutional: Constitutional: Reports no additional constitutional complaints Cardiovascular: Cardiovascular: Reports no additional cardiovascular complaints Respiratory: Respiratory: Reports no additional respiratory complaints Gastrointestinal: Gastrointestinal: Reports no additional gastrointestinal complaints Neurologic: Reports system reviewed and no additional complaints, except as documented PMFSH Past Medical History Medical History (Updated 12/04/24 @ 12:20 by Zackary Schultz MD) Atrial fibrillation Exam 2 Narrative: GENERAL: Well-appearing, well-nourished, and in no acute distress. HEAD: Normocephalic, atraumatic. ENT: Mucous membranes moist. CHEST: Clear to auscultation. No respiratory distress. HEART: Regular rate and rhythm. Normal peripheral pulses. ABDOMEN: Soft, nontender, nondistended. EXTREMITIES: Normal range of motion. +2 edema. SKIN: Warm, dry, no rash. Erythema of the calves bilaterally the patient reports is chronic. NEURO: Alert and oriented x3. PSYCH: Normal mood and affect. Course Course Emergency Course: Discussed with cardiology office. Hold Coumadin for the next 2 days. They will contact her about her repeat INR test. No recommendation for vitamin K at this time. Vital Signs Vital signs: Vital Signs Temperature 98.2 F 12/04/24 09:43 Pulse Rate 96 12/04/24 09:43 Respiratory Rate 18 12/04/24 09:43 Blood Pressure 144/100 H 12/04/24 09:43 Pulse Oximetry 96 12/04/24 09:43 Oxygen Delivery Room Air 12/04/24 09:43 Temperature 98.2 F 12/04/24 09:43 Pulse Rate 96 12/04/24 09:43 Respiratory Rate 18 12/04/24 09:43 Blood Pressure 144/100 H 12/04/24 09:43 Pulse Oximetry 96 12/04/24 09:43 Oxygen Delivery Room Air 12/04/24 09:43 Medical Decision Making Vital Signs Vital Signs: Vital Signs Temperature 98.2 F 12/04/24 09:43 Pulse Rate 96 12/04/24 09:43 Respiratory Rate 18 12/04/24 09:43 Blood Pressure 144/100 H 12/04/24 09:43 Pulse Oximetry 96 12/04/24 09:43 Oxygen Delivery Room Air 12/04/24 09:43 Temperature 98.2 F 12/04/24 09:43 Pulse Rate 96 12/04/24 09:43 Respiratory Rate 18 12/04/24 09:43 Blood Pressure 144/100 H 12/04/24 09:43 Pulse Oximetry 96 12/04/24 09:43 Oxygen Delivery Room Air 12/04/24 09:43 Lab Data 12/04/24 10:08 12/04/24 10:08 Labs: Lab Results 12/04/24 Range/Units 10:08 WBC 6.6 (4.5-10.0) K/mm3 RBC 4.46 (4.2-5.4) M/mm3 Hgb 11.3 L (12.0-15.0) g/dL Hct 38.7 (37.0-47.0) % MCV 86.8 (80-100) fl MCH 25.3 L (26-34) pg MCHC 29.2 L (32-36) g/dl RDW 23.9 H (11.5-14.5) % Plt Count 262 (150-375) k/mm3 MPV 9.7 (7.4-10.4) fl Immature Gran % (Auto) 0.3 (0-0.5) % Neut % (Auto) 63.7 (45.5-73.1) % Lymph % (Auto) 25.2 (18.3-44.2) % [place] % (Auto) 8.2 (2.6-8.5) % Eos % (Auto) 1.8 (0-4.4) % Baso % (Auto) 0.8 (0.2-1.2) % Lymph # (Auto) 1.67 (0.9-3.2) K/mm3 [place] # (Auto) 0.5 (0.1-0.6) K/mm3 Eos # (Auto) 0.1 (0-0.3) K/mm3 Baso # (Auto) 0.1 (0.0-0.1) K/mm3 Abs Immat Gran (auto) 0.02 (0.00-0.031) K/mm3 Absolute Neuts (auto) 4.2 (1.3-6.7) K/mm3 Absolute Nucleated RBC 0.000 (0.0-0.012) K/mm3 Band Neutrophils % Not Reportable Nucleated RBC % 0.0 (0.0-0.2) % Platelet Estimate Adequate (Adequate) Hypochromasia 1+ Anisocytosis 1+ Ovalocytes 1+ Schistocytes None seen PT 49.2 H (11.1-14.7) Seconds INR 5.8 H* APTT 52.4 H (22.3-36.8) Seconds Sodium 139 (137-145) mmol/L Potassium 4.7 (3.4-5.0) mmol/L Chloride 102 (98-107) mmol/L Carbon Dioxide 30 (22-30) mmol/L Anion Gap 7 (4-12) mmol/L BUN 15 (7-17) mg/dL Creatinine 1.06 H (0.7-1.0) mg/dL Estim Creat Clear Calc 36 ml/min Estimated GFR 50 L (59 - ) Glucose 95 (65-110) mg/dL Calcium 9.0 (8.4-10.2) mg/dL Total Bilirubin 0.7 (0.2-1.3) mg/dL AST 35 (14-36) U/L ALT 16 (6-35) U/L Alkaline Phosphatase 124 (38-126) U/L Total Protein 7.9 (6.3-8.2) g/dL Albumin 4.0 (3.5-5.1) g/dL Discharge Plan Discharge Clinical Impression: Supratherapeutic INR Patient Disposition: Home Condition: Stable Instructions: Elevated INR (ED) Additional Instructions: Return to the ER if you have fever over 101F, you lose consciousness, you have bright red blood in your stool, or you have other concerns. Do not take your warfarin tonight or tomorrow. Patient Language: American Follow-up/Referrals: Glenn,Craig [Other] - 1 Week Carlyle Pinedo MD [Physician] - 3 Days
[2024-12-04 12:58] VITALS: BP 141/98; PULSE 82; RESP 16; TEMP 36.5; O2SAT 100
== END 2024-12-04 12:58 | disposition home or self-care (01) ==
PROVIDERS: Emergency Provider Emergency Medicine
DX: R79.1 Abnormal coagulation profile (principal); I48.91 Unspecified atrial fibrillation; Z79.01 Long term (current) use of anticoagulants
CPT/HCPCS: 36415; 80053; 85025; 85610; 85730; 99283

== ENCOUNTER 2025-01-17 12:18 | Emergency (ER) | payer MEDICARE, SELFPAY ==
--- NOTE | ~2025-01-17 | XR_ITS ---
X-rays left hand Indication: Injury, bruising, swelling Comparison: None Technique: 3 views left hand Findings/Impression: 1. No fracture or dislocation left hand. 2. Severe soft tissue swelling dorsal soft tissues along metacarpals. Reviewed, dictated and finalized at location R.
[2025-01-17 12:29] VITALS: BP 128/61; PULSE 81; RESP 16; TEMP 36.6; O2SAT 97
--- NOTE | 2025-01-17 12:52 | ED.UPPEXIN ---
HPI - Extremity Injury (Upper) General Chief Complaint: Extremity Injury, Upper Stated Complaint: Left Hand Pain Time Seen by Provider: 01/17/25 12:40 Source: patient and RN notes reviewed Mode of arrival: ambulatory Limitations: no limitations History of Present Illness HPI narrative: 79-year-old female presents Express Care of left hand injury a week ago. Patient was walking her dog on on a leash at home when the dog Ricardo is a score own started to run will the patient striking her left hand on the door frame. Patient denies any falls R.N. at other injuries. Patient does take Coumadin and reports bruising, swelling to her left hand extending to her left forearm. Patient says bruising and swelling is improving. However she still has pain to her left hand is a large bruise present to the back of her left hand. Patient denies any numbness, tingling, fevers, aches, chills, nausea vomiting, disproportionate pain, or any other symptoms. Related Data Home Medications ?Medication ?Instructions ?Recorded ?Confirmed ?Last Taken ?Type Vitamin D (with calcium) 01/17/25 Unknown History aspirin 01/17/25 Unknown History lisinopril 10 mg tablet mg 01/17/25 Unknown History metoprolol succinate 50 mg mg PO 01/17/25 Unknown History tablet,extended release 24 hr rosuvastatin 20 mg tablet mg 01/17/25 Unknown History warfarin 4 mg tablet mg 01/17/25 Unknown History Allergies Allergy/AdvReac Type Severity Reaction Status Date / Time Penicillins Allergy Unknown RASH Verified 01/17/25 12:31 Review of Systems Review of Systems: CONSTITUTIONAL: Denies fever, chills, or sweats. EYES: Denies visual changes, redness, or discharge. ENT: Denies rhinorrhea, congestion, sore throat, or otalgia. CARDIOVASCULAR: Denies chest pain, palpitations, or edema. RESPIRATORY: Denies cough or dyspnea. GASTROINTESTINAL: Denies abdominal pain, nausea, vomiting, or diarrhea. GENITOURINARY: Denies dysuria or hematuria. SKIN: Denies rash, wound, or itching. Positive bruising. MUSCULOSKELETAL: Denies back pain, joint pain, or myalgia. Positive for left hand injury and swelling NEUROLOGIC: Denies headache, numbness, or weakness. PSYCHIATRIC: Denies anxiety or depression. All other systems reviewed are negative, except as documented in HPI. [facility] Past Medical History Medical History Atrial fibrillation Comments At the time of my signature, I reviewed and agree with the nursing past medical, surgical, social, and family history. There is no relevant family history pertinent to the patient complaint. Exam Narrative: GENERAL: This is a well-nourished, well-developed adult, in no apparent distress. They are non ill-appearing, nontoxic appearing. HEAD: normocephalic, atraumatic. EYES: Sclera clear/white. Vision is grossly intact. Conjunctiva normal. Extraocular movement intact. EARS: External ears normal Hearing grossly intact. NOSE: External nose normal THROAT: Mucous membranes moist NECK: Neck supple CARDIOVASCULAR: Regular rate and rhythm RESPIRATORY: Respiratory rate normal, respiratory effort nonlabored, no respiratory distress NEURO: awake, alert, and oriented to person, place and time. There were no obvious focal neurologic abnormalities. EXTREMITIES: Left hand: Dorsal surface of the hand has large hematoma present measuring approximately 5 cm x 5 cm. Left hand mildly edematous, nonpitting. No redness, no exudate, drainage, no area of fluctuance, no induration. Mild tenderness throughout the hematoma. Normal range of motion. No bony tenderness. Capillary refill less than 3 seconds. Left radial Pulse 2 +palpable. Normal sensation. Neurovascular status intact distal injury. Patient able to wiggle her, fingers, make a fist, thumbs-up sign, stop sign, and okay sign. Radial and ulnar nerve distribution intact. There is old ecchymosis throughout the left forearm without swelling. BACK: Nontender without deformity. Course Course Emergency Course: Portions of this record may have been created with voice recognition software Level of Care: Express Care Visit Vital Signs Vital signs: Vital Signs Temperature 97.8 F 01/17/25 12:29 Pulse Rate 81 01/17/25 12:29 Respiratory Rate 16 01/17/25 12:29 Blood Pressure 128/61 01/17/25 12:29 Pulse Oximetry 97 01/17/25 12:29 Oxygen Delivery Room Air 01/17/25 12:29 Temperature 97.8 F 01/17/25 12:29 Pulse Rate 81 01/17/25 12:29 Respiratory Rate 16 01/17/25 12:29 Blood Pressure 128/61 01/17/25 12:29 Pulse Oximetry 97 01/17/25 12:29 Oxygen Delivery Room Air 01/17/25 12:29 Reviewed MDM - Extremity Injury (Upper) MDM Narrative Medical decision making narrative: X-ray left hand is negative for any fractures or acute findings. She likely has large hematoma which was complicated from her warfarin use. Evidence of infection. Bruising and swelling seemed to be improving well. Recommend supportive care along with cold compresses. ER precautions discussed with patient says she has develops redness, worsening swelling, pain fevers, drainage, pain that is disproportionate to her injury, severe left hand pain, numbness, tingling, loss of pulse, culture blue fingers, or any serious concerns. Discussed physical exam findings. Advised supportive measures and signs/symptoms to go to the ER. Pt is appropriate for outpt treatment and f/u. Differential Diagnosis Differential diagnosis: Likely fracture of hand and other (Hand contusion, hematoma, cellulitis, hand sprain) Critical Care Time Critical Care Time Critical Care Time: No Discharge Plan Discharge Clinical Impression: Hematoma of left hand Patient Disposition: Home Condition: Stable Instructions: Hematoma (ED) Additional Instructions: The x-ray of left hand is negative for any fractures or acute findings. Rest and elevate the left arm, keep it above your heart when resting. Apply ice 15-20 minute intervals several times a day to help with swelling You may try an Guido wrap for compression You may take up to 1000 mg Tylenol every 6-8 hours. Do not exceed 1000 mg per dose, do exceed more than 4000 mg of Tylenol in a day. Follow up with your primary care provider 3-5 days Go to the ER if he developed worsening redness, swelling, pain, fevers, green/yellow drainage, body aches, chills, cold or blue fingers, disproportionate pain of your left hand, severe left hand pain, lose of pulse to your left hand, numbness, tingling, inability use your left hand, or any serious concerns. Patient Language: Irish Prescriptions: No Action metoprolol succinate 50 mg tablet extended release 24 hr PO warfarin 4 mg tablet lisinopril 10 mg tablet rosuvastatin 20 mg tablet aspirin Vitamin D (with calcium) Follow-up/Referrals: PHYSICIAN,SCREEN MAKING TECHNICIAN [Primary Care Provider, Internal Medicine] Time of Disposition: 13:31
== END 2025-01-17 13:36 | disposition home or self-care (01) ==
DX: S60.222A Contusion of left hand, initial encounter (principal); W22.09XA Striking against other stationary object, initial encounter; Y93.K1 Activity, walking an animal; I48.91 Unspecified atrial fibrillation; Z79.01 Long term (current) use of anticoagulants
CPT/HCPCS: 73130; 99213; G0463